=== PATIENT | male | born 1930 | race Caucasian/White ===

== ENCOUNTER 2016-09-12 11:31 | Inpatient (IN) | payer MEDICARE, BC ==
[2016-09-12] MEDS ORDERED: Sodium Chloride 0.9% 5 ML Syringe FLUSH PRN (12:28)
[2016-09-12] MEDS ORDERED: Acetaminophen 500 MG Tab PO ONE (12:28)
[2016-09-12] MEDS ORDERED: Sodium Chloride 0.9% 1,000 ML IV SCH (12:30)
--- NOTE | 2016-09-12 12:40 | EDM.PDOC ---
ED HPI GENERAL MEDICAL PROBLEM - General Chief Complaint: Respiratory Problem Stated Complaint: FEVERS,CHILLS Time Seen by Provider: 09/12/16 12:00 Source of Information: Reports: Patient, EMS, custodial records History Limitations: Reports: No limitations - History of Present Illness INITIAL COMMENTS - FREE TEXT/NARRATIVE: 86 YO WM presents to ER with fever, cough, shortness of breath. Pt reports fever /chills began this am. states patients temp was as high as 103.0. Pt denies any chest pain, denies nausea/vomiting or body aches. Onset: today Onset Date: 09/12/16 Duration: Day(s): (1) Location: Reports: generalized Improves with: Reports: Rest Worsens with: Reports: Breathing - Related Data Allergies Allergy/AdvReac Type Severity Reaction Status Date / Time atenolol Allergy Syncope Verified 09/12/16 13:09 Home Meds: Home Meds Calcium Carbonate 600 mg PO DAILY 10/28/13 [History] Ipratropium/Albuterol Sulfate [Duoneb 0.5 mg-3 mg/3 ml Soln] 3 ml IH DAILY 10/28 [History] LORazepam [Ativan] 1 mg PO BEDTIME 10/28/13 [History] Losartan [Cozaar] 100 mg PO DAILY 10/28/13 [History] Tamsulosin [Flomax] 0.4 mg PO BEDTIME 10/28/13 [History] amLODIPine [Norvasc] 5 mg PO DAILY 10/28/13 [History] lamoTRIgine [Lamictal] 100 mg PO BID 10/28/13 [History] Omeprazole [Prilosec] 40 mg PO ACBREAKFAST 05/08/15 [History] Ascorbic Acid [C-1000] 1,000 mg PO DAILY 07/25/15 [History] Budesonide [Pulmicort] 1 unit INH DAILY 07/25/15 [History] Cholecalciferol (Vitamin D3) [Vitamin D3] 1 tab PO DAILY 07/25/15 [History] Garlic 1 tab PO DAILY 07/25/15 [History] Ubiquinol 100 mg PO DAILY 07/25/15 [History] atorvaSTATin [Lipitor] 20 mg PO BEDTIME #30 tablet 07/29/15 [Rx] Past Medical History HEENT History: Reports: Cataract, Hard of hearing, Impaired vision Cardiovascular History: Reports: High cholesterol, Hypertension Respiratory History: Reports: Asthma, COPD, Pneumonia, recurrent Gastrointestinal History: Reports: Chronic constipation, GERD Genitourinary History: Reports: BPH Musculoskeletal History: Reports: Back pain, chronic Neurological History: Reports: CVA Endocrine/Metabolic History: Reports: None Oncologic (Cancer) History: Reports: Bladder - Infectious Disease History Infectious Disease History: Reports: Chicken pox, Measles, Mumps, Rubella, Other (see below) Other Infectious Disease History: Polio at age 5. 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 Endocrine Surgical History: Reports: None Social & Family History - Family History Family Medical History: Noncontributory - Tobacco Use Smoking Status *Q: Former Smoker Years of Tobacco use: 20 Packs/Tins Daily: 5 Used Tobacco, but Quit: Yes Month Tobacco Last Used: 10 years - Alcohol Use Days Per Week of Alcohol Use: 0 - Recreational Drug Use Recreational Drug Use: No ED ROS GENERAL - Review of Systems Review Of Systems: See Below Constitutional: Reports: fever, chills, weakness, decreased appetite HEENT: Reports: No symptoms Respiratory: Reports: Shortness of Breath, Cough Cardiovascular: Reports: No symptoms Endocrine: Reports: no symptoms GI/Abdominal: Reports: No symptoms : Reports: no symptoms Musculoskeletal: Reports: no symptoms Skin: Reports: no symptoms Neurological: Reports: No Symptoms Psychiatric: Reports: No symptoms Hematologic/Lymphatic: Reports: no symptoms Immunologic: Reports: no symptoms ED EXAM, GENERAL - Physical Exam Exam: See Below Exam Limited By: No limitations General Appearance: alert, WD/WN, no apparent distress Ears: normal external exam, normal canal, hearing grossly normal, normal TMs Ear Exam: bilateral ear: auricle normal, canal normal, TM normal Nose: normal inspection, normal mucosa, no blood Throat/Mouth: Normal inspection, Normal lips, Normal teeth, Normal gums, Normal oropharynx, Normal voice, No airway compromise Head: atraumatic, normocephalic Neck: normal inspection, supple, non-tender, full range of motion Respiratory/Chest: decreased breath sounds Cardiovascular: normal peripheral pulses, regular rate, rhythm, no edema, no gallop, no JVD, no murmur, no rub GI/Abdominal: normal bowel sounds, soft, non tender, no organomegaly, no distention, no abnormal bruit, no mass Back Exam: normal inspection, full range of motion, NT Extremities: normal inspection, normal range of motion, non-tender, normal capillary refill, no pedal edema Neurological: alert, oriented, CN II-XII intact, normal cognition, normal gait, normal reflexes, no motor/sensory deficits Psychiatric: normal affect, normal mood Skin Exam: Warm, Dry, Intact, Normal color, No rash Lymphatic: no adenopathy Course - Vital Signs Last Recorded V/S: Last Vital Signs Temp 39.4 C H 09/12/16 13:22 Pulse 86 09/12/16 11:35 Resp 28 H 09/12/16 11:35 BP 140/74 09/12/16 11:35 Pulse Ox 88 L 09/12/16 11:35 - Orders/Labs/Meds Orders: Active Orders 24 hr Category Date Time Status Patient Status Manage Transfer [TRANSFER] Routine ADT 09/12/16 13:10 Ordered Cardiac Monitoring [RC] . DIRECTED Care 09/12/16 13:10 Active Peripheral IV Care [RC] . DIRECTED Care 09/12/16 12:29 Active RT Aerosol Therapy [RC] ASDIRECTED Care 09/12/16 12:59 Active Chest 2V [CR] Stat Exams 09/12/16 11:45 Ordered CULTURE BLOOD [BC] Stat Lab 09/12/16 12:47 Received CULTURE BLOOD [BC] Stat Lab 09/12/16 13:18 Received UA W/MICROSCOPIC [URIN] Stat Lab 09/12/16 11:46 Uncollected Sodium Chloride 0.9% [Normal Saline] 1,000 ml Med 09/12/16 12:30 Active IV ASDIRECTED Sodium Chloride 0.9% [Syrex Flush] Med 09/12/16 12:28 Active 5 ml FLUSH Q8HR PRN Blood Culture x2 Reflex Set [OM.PC] Stat Oth 09/12/16 12:28 Ordered Peripheral IV Insertion Adult [OM.PC] Routine Oth 09/12/16 12:28 Ordered Medication Orders Sodium Chloride (Normal Saline) 1,000 mls @ 150 mls/hr IV ASDIRECTED BERNABE Sodium Chloride (Syrex Flush) 5 ml FLUSH Q8HR PRN PRN Reason: Keep Vein Open Labs: Laboratory Tests 09/12/16 09/12/16 09/12/16 Range/Units 12:47 12:47 12:47 WBC 13.9 H (5.0-10.0) 10^3/uL RBC 4.72 (4.50-6.00) 10^6/uL Hgb 15.2 (13.0-17.0) g/dL Hct 45.1 (40.0-52.0) % MCV 95.5 H (82.0-92.0) fL MCH 32.2 H (27.0-31.0) pg MCHC 33.7 (32.0-36.0) g/dL RDW 12.8 (11.5-14.5) % Plt Count 225 (150-300) 10^3/uL MPV 7.3 L (7.4-10.4) fL Neut % (Auto) 90.3 H (50.0-70.0) % Lymph % (Auto) 5.0 L (20.0-40.0) % [place] % (Auto) 4.4 (2.0-8.0) % Eos % (Auto) 0.2 L (1.0-3.0) % Baso % (Auto) 0.1 (0.0-1.0) % Neut # (Auto) 12.6 H (2.5-7.0) 10^3/uL Lymph # (Auto) 0.7 L (1.0-4.0) 10^3/uL [place] # (Auto) 0.6 (0.1-0.8) 10^3/uL Eos # (Auto) 0.0 L (0.1-0.3) 10^3/uL Baso # (Auto) 0.0 (0.0-0.1) 10^3/uL PT 10.2 (8.9-11.4) SEC INR 1.0 (0.9-1.1) APTT 25.7 (20.8-31.2) SEC Sodium 137 (136-145) mmol/L Potassium 4.0 (3.3-5.3) mmol/L Chloride 99 (98-115) mmol/L Carbon Dioxide 28.6 (21.0-32.0) mmol/L BUN 15 (6-25) mg/dL Creatinine 0.95 (0.51-1.17) mg/dL Est Cr Clr Drug Dosing 55.18 mL/min Estimated GFR (MDRD) > 60 mL/min Glucose 90 (70-110) mg/dL Calcium 9.1 (8.7-10.3) mg/dL Total Bilirubin 1.0 (0.2-1.0) mg/dL AST 14 L (15-37) U/L ALT 13 (12-78) U/L Alkaline Phosphatase 77 (46-116) IU/L Creatine Kinase 60 (26-276) U/L CK-MB (CK-2) 0.90 (0.00-4.30) ng/mL Troponin I 0.06 (0.00-0.070) ng/mL B-Natriuretic Peptide 125 H (0-100) pg/mL Total Protein 7.5 (6.4-8.2) g/dL Albumin 4.00 (3.00-4.80) g/dL Meds: Medications Generic Name Dose Route Start Last Admin Trade Name Freq PRN Reason Stop Dose Admin Sodium Chloride 1,000 mls @ 150 mls/hr 09/12/16 12:30 Normal Saline IV ASDIRECTED BERNABE Sodium Chloride 5 ml 09/12/16 12:28 Syrex Flush FLUSH Q8HR PRN Keep Vein Open Discontinued Medications Generic Name Dose Route Start Last Admin Trade Name Freq PRN Reason Stop Dose Admin Acetaminophen 1,000 mg 09/12/16 12:28 09/12/16 13:22 Tylenol Extra Strength PO 09/12/16 12:29 1,000 mg ONETIME ONE Administration Albuterol/Ipratropium 3 ml 09/12/16 12:59 09/12/16 13:22 Duoneb 3.0-0.5 Mg/3 Ml NEB 09/12/16 13:00 3 ml ONETIME ONE Administration - Radiology Interpretation Free Text/Narrative:: CXR- Bibasilar pneumonia Departure - Departure Time of Disposition: 13:28 Disposition: Admitted As Inpatient 68 Condition: fair Clinical Impression: Pneumonia Qualifiers: Pneumonia type: due to unspecified organism Laterality: bilateral Lung location : lower lobe of lung Qualified Code(s): J18.9 - Pneumonia, unspecified organism Referrals: Latoya Muñiz, [employer] [Primary Care Provider] - - My Orders Last 24 Hours: My Active Orders 09/12/16 11:45 Chest 2V [CR] Stat 09/12/16 11:46 UA W/MICROSCOPIC [URIN] Stat 09/12/16 12:28 Sodium Chloride 0.9% [Syrex Flush] 5 ml FLUSH Q8HR PRN Blood Culture x2 Reflex Set [OM.PC] Stat Peripheral IV Insertion Adult [OM.PC] Routine 09/12/16 12:29 Peripheral IV Care [RC] . DIRECTED 09/12/16 12:30 Sodium Chloride 0.9% [Normal Saline] 1,000 ml IV ASDIRECTED 09/12/16 12:47 CULTURE BLOOD [BC] Stat 09/12/16 12:59 RT Aerosol Therapy [RC] ASDIRECTED 09/12/16 13:10 Patient Status Manage Transfer [TRANSFER] Routine Cardiac Monitoring [RC] . DIRECTED 09/12/16 13:18 CULTURE BLOOD [BC] Stat - Assessment/Plan Last 24 Hours: My Active Orders 09/12/16 11:45 Chest 2V [CR] Stat 09/12/16 11:46 UA W/MICROSCOPIC [URIN] Stat 09/12/16 12:28 Sodium Chloride 0.9% [Syrex Flush] 5 ml FLUSH Q8HR PRN Blood Culture x2 Reflex Set [OM.PC] Stat Peripheral IV Insertion Adult [OM.PC] Routine 09/12/16 12:29 Peripheral IV Care [RC] . DIRECTED 09/12/16 12:30 Sodium Chloride 0.9% [Normal Saline] 1,000 ml IV ASDIRECTED 09/12/16 12:47 CULTURE BLOOD [BC] Stat 09/12/16 12:59 RT Aerosol Therapy [RC] ASDIRECTED 09/12/16 13:10 Patient Status Manage Transfer [TRANSFER] Routine Cardiac Monitoring [RC] . DIRECTED 09/12/16 13:18 CULTURE BLOOD [BC] Stat Assessment:: 1. fever 2. bibasillar pneumonia- community acquired Plan: 1. admit to hospital for pneumonia 2. duoneb treatment 3. antibiotics per Dr Gabriela Olivares 4. tylenol for fever
[2016-09-12] MEDS ORDERED: Albuterol/Ipratropium 3.0-0.5 MG/3 ML Neb Soln NEB ONE (12:59)
[2016-09-12 13:27] LABS: CHLORIDE,CL 99 mmol/L (98-115); SODIUM,NA 137 mmol/L (136-145)
--- NOTE | 2016-09-12 14:14 | PCM.HP ---
H&P History of Present Illness - General Date of Service: 09/12/16 Admit Problem/Dx: Admission Diagnosis/Problem Admission Diagnosis/Problem Pneumonia History of present illness: Patient is an 86-year-old gentleman who normally lives in assisted living who presented to the emergency room today with the chief complaint of fever, increased shortness breath, increased coughing. Patient reports he was feeling well up until this morning-developed fever, 103+ , chills, increased coughing, shaking, increased fatigue, decreased appetite, increased shortness of breath, increased wheezing History of significant COPD, previous pneumonia Denied any abdominal pain, nausea, vomiting, diarrhea-history of some constipation. Patient is on chronic nocturnal oxygen therapy History of previous bladder [id number]-on surveillance every 3 months Patient evaluated in the emergency room: Thought to have bibasilar pneumonia Source of Information: Patient, Family, Significant Other, Other History Limitations: Reports: No limitations - History of Present Illness Initial Comments - Free Text/Narative: As above Onset of Symptoms: Reports: today - Related Data Allergies/Adverse Reactions: Allergies Allergy/AdvReac Type Severity Reaction Status Date / Time atenolol Allergy Syncope Verified 09/12/16 13:09 Home Medications: Home Meds Calcium Carbonate 600 mg PO DAILY 10/28/13 [History] Ipratropium/Albuterol Sulfate [Duoneb 0.5 mg-3 mg/3 ml Soln] 3 ml IH DAILY 10/28 [History] LORazepam [Ativan] 1 mg PO BEDTIME 10/28/13 [History] Losartan [Cozaar] 100 mg PO DAILY 10/28/13 [History] Tamsulosin [Flomax] 0.4 mg PO BEDTIME 10/28/13 [History] amLODIPine [Norvasc] 5 mg PO DAILY 10/28/13 [History] lamoTRIgine [Lamictal] 100 mg PO BID 10/28/13 [History] Omeprazole [Prilosec] 40 mg PO ACBREAKFAST 05/08/15 [History] Ascorbic Acid [C-1000] 1,000 mg PO DAILY 07/25/15 [History] Budesonide [Pulmicort] 1 unit INH DAILY 07/25/15 [History] Cholecalciferol (Vitamin D3) [Vitamin D3] 1 tab PO DAILY 07/25/15 [History] Garlic 1 tab PO DAILY 07/25/15 [History] Ubiquinol 100 mg PO DAILY 07/25/15 [History] atorvaSTATin [Lipitor] 20 mg PO BEDTIME #30 tablet 07/29/15 [Rx] Past Medical History HEENT History: Reports: Cataract, Hard of hearing, Impaired vision Cardiovascular History: Reports: High cholesterol, Hypertension Respiratory History: Reports: Asthma, COPD, Pneumonia, recurrent Gastrointestinal History: Reports: Chronic constipation, GERD Genitourinary History: Reports: BPH Musculoskeletal History: Reports: Back pain, chronic Neurological History: Reports: CVA Endocrine/Metabolic History: Reports: None Oncologic (Cancer) History: Reports: Bladder - Infectious Disease History Infectious Disease History: Reports: Chicken pox, Measles, Mumps, Rubella, Other (see below) Other Infectious Disease History: Polio at age 5. 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 Endocrine Surgical History: Reports: None Social & Family History - Family History Family Medical History: Noncontributory - Tobacco Use Smoking Status *Q: Former Smoker Years of Tobacco use: 20 Packs/Tins Daily: 5 Used Tobacco, but Quit: Yes Month Tobacco Last Used: 10 years - Alcohol Use Days Per Week of Alcohol Use: 0 - Recreational Drug Use Recreational Drug Use: No H&P Review of Systems - Review of Systems: Review Of Systems: See Below General: Reports: fever, chills, malaise, weakness, fatigue, decreased appetite. Denies: diaphoresis, weight loss, weight gain HEENT: Reports: glasses. Denies: dysphasia, headaches, sinus congestion, sore throat Pulmonary: Reports: Shortness of Breath, Wheezing, Cough (somewhat increased). Denies: Pleuritic Chest Pain Cardiovascular: Reports: dyspnea on exertion, lightheadedness (chronically when he gets up to fast). Denies: chest pain, palpitations, edema, syncope Gastrointestinal: Reports: Anorexia (eats very small meals), Constipation (at times), Decreased appetite. Denies: Abdominal pain, Black stool, Bloody stool, Diarrhea, Distension, Hematochezia, Melena, Nausea, Vomiting Genitourinary: Reports: dysuria (at times). Denies: frequency, urgency, incontinence, hematuria Musculoskeletal: Reports: leg pain (arthritis) Skin: Denies: cyanosis, jaundice, mottled, pallor, diaphoresis, rash, erythema Psychiatric: Reports: no symptoms Neurological: Reports: No Symptoms (except increase weakness), Weakness ( increased) Hematologic/Lymphatic: Reports: no symptoms Exam - Exam Exam: See Below - Vital Signs Vital Signs: Last Vital Signs Temp 102.9 F H 09/12/16 13:22 Pulse 86 09/12/16 11:35 Resp 28 H 09/12/16 11:35 BP 140/74 09/12/16 11:35 Pulse Ox 88 L 09/12/16 11:35 Weight: 148 lb 9.6 oz - Exam Quality Assessment: supplemental oxygen General: alert, oriented, cooperative, mild distress, other (appears ill somewhat septic/toxic) HEENT: Conjunctiva clear, EACs clear, EOMI, Mucosa moist & pink, Nares patent, Normal nasal septum, Pupils equal, Pupils reactive, TMs clear, Glasses, PERRLA. No: Hearing intact (hard of hearing), Posterior pharynx clear (slight induration), Scleral icterus Neck: supple, trachea midline. No: lymphadenopathy, JVD, thyromegaly Lungs: Decreased breath sounds, Crackles, Wheezing (slight at times) Cardiovascular: regular rate, regular rhythm, systolic murmur Abdomen: normal bowel sounds, soft. No: organomegaly, peritoneal signs, distention, guarding, rigidity, rebound, tenderness Extremities: No: calf tenderness, edema, increased warmth Skin: dry, intact, other (hot) Neurological: cranial nerves intact (except hard of hearing) Neuro Extensive - Mental Status: alert, oriented x3, normal mood/affect, normal cognition Neuro Extensive - Motor, Sensory, Reflexes: CN II-XII intact (except [place]), normal gait Psychiatric: alert, normal affect, normal mood - Patient Data Result Diagrams: 09/12/16 12:47 09/12/16 12:47 *Q Meaningful Use (ADM) - VTE *Q VTE Criteria *Q: - Stroke *Q Stroke Criteria *Q: - AMI *Q AMI Criteria *Q: Problem List Initiated/Reviewed/Updated: Yes Orders Last 24hrs: Active Orders 24 hr Category Date Time Status Doxycycline [Vibramycin] Med 09/12/16 14:00 Active 100 mg PO BID cefTRIAXone [Rocephin] Med 09/12/16 14:00 Active 1 gm IVPUSH Q24H Medication Orders Ceftriaxone Sodium (Rocephin) 1 gm IVPUSH Q24H BERNABE Doxycycline Monohydrate (Vibramycin) 100 mg PO BID BERNABE Sodium Chloride (Normal Saline) 1,000 mls @ 150 mls/hr IV ASDIRECTED BERNABE Sodium Chloride (Syrex Flush) 5 ml FLUSH Q8HR PRN PRN Reason: Keep Vein Open Assessment/Plan Comment:: Assessment: Pneumonia Acute on chronic COPD exacerbation Rule out sepsis Generalized weakness Hypoxia-acute on chronic/respiratory failure Hypertension Hyperlipidemia Osteoarthritis-diffuse Bladder cancer history GERD History of recurrent pneumonia Chronic constipation Prostatic hypertrophy Previous CVA history Plan: Admit to inpatient status Close monitoring, I&O, vital signs Full cultures-blood, sputum Cover with broad-spectrum antibiotics-IV Rocephin and oral doxycycline Continue duo nebs every 6 hours Oxygen therapy and titrate as necessary to maintain adequate oxygenation but not suppress respiratory drive Talked with patient and his and they agree with this evaluation and treatment plan Consider corticosteroids depending on clinical picture-does not appear to need and at this time See orders for further details
[2016-09-12] MEDS: cefTRIAXone 1 GM Vial IVPUSH SCH (14:20)
[2016-09-12] MEDS: Doxycycline 100 MG Tab PO SCH ×2 (15:38→20:38)
[2016-09-12] MEDS: Albuterol/Ipratropium 3.0-0.5 MG/3 ML Neb Soln NEB SCH ×2 (17:43→22:04)
[2016-09-12] MEDS: Budesonide 0.5 MG/2 ML Neb Susp INH SCH (17:58)
[2016-09-12] MEDS: atorvaSTATin 10 MG Tab PO SCH (20:35)
[2016-09-12] MEDS: LORazepam 0.5 MG Tab PO SCH (20:35)
[2016-09-12] MEDS: Tamsulosin 0.4 MG Cap.ER PO SCH (20:36)
[2016-09-12] MEDS: lamoTRIgine 100 MG Tab PO SCH (22:03)
[2016-09-13] MEDS: Omeprazole 20 MG Cap.CR PO SCH (06:06)
[2016-09-13] MEDS: Albuterol/Ipratropium 3.0-0.5 MG/3 ML Neb Soln NEB SCH ×4 (06:07→22:07)
[2016-09-13] MEDS: Losartan 50 MG Tab PO SCH (08:24)
[2016-09-13] MEDS: lamoTRIgine 100 MG Tab PO SCH ×2 (08:25→20:45)
[2016-09-13] MEDS: Ascorbic Acid 500 MG Tab PO SCH (08:26)
[2016-09-13] MEDS: amLODIPine 5 MG Tab PO SCH (08:26)
[2016-09-13] MEDS: Doxycycline 100 MG Tab PO SCH ×2 (08:27→20:47)
[2016-09-13] MEDS: Budesonide 0.5 MG/2 ML Neb Susp INH SCH (08:33)
[2016-09-13] MEDS: UBIQUINOL 100 MG PO SCH (08:37)
--- NOTE | 2016-09-13 09:43 | PCM.PN ---
- General Info Date of Service: 09/13/16 Admission Dx/Problem (Free Text): Admission Diagnosis/Problem Admission Diagnosis/Problem Pneumonia History of present illness: Patient is an 86-year-old gentleman who normally lives in assisted living who presented to the emergency room today with the chief complaint of fever, increased shortness breath, increased coughing. Patient reports he was feeling well up until this morning-developed fever, 103+ , chills, increased coughing, shaking, increased fatigue, decreased appetite, increased shortness of breath, increased wheezing History of significant COPD, previous pneumonia Denied any abdominal pain, nausea, vomiting, diarrhea-history of some constipation. Patient is on chronic nocturnal oxygen therapy History of previous bladder bjodfijzs-pnir-lujwcujgxy-on surveillance every 3 months Patient evaluated in the emergency room: Thought to have bibasilar pneumonia Patient reports today: Feeling somewhat better today Slightly stronger but yet weaker than his baseline Shortness of breath-slightly better Denied any chest pain Slight abdominal discomfort History of constipation-but had a bowel movement yesterday Slight nausea this morning when he ate but better now Nurses report today: Patient doing well Temperature down Question to continue IV fluids or not Functional Status: Reports: pain controlled, tolerating diet (Pretty well- slight nausea with it-resolved at present), ambulating, urinating - Review of Systems General: Reports: Weakness (Slightly better), Fatigue (Slightly better), Appetite (Fair). Denies: Fever, Chills HEENT: Reports: no symptoms Pulmonary: Reports: shortness of breath (Slight improvement), cough (Less pronounced). Denies: pleuritic chest pain, wheezing (No wheezing today) Cardiovascular: Denies: Chest Pain, Palpitations, Dyspnea on Exertion, Edema, Lightheadedness Gastrointestinal: Reports: Abdominal pain (Slight diffuse discomfort), Constipation (History-bowel movement yesterday), Nausea (Slight with breakfast- resolved after eating). Denies: Diarrhea, Hematochezia, Melena, Vomiting Genitourinary: Reports: no symptoms Musculoskeletal: Reports: no symptoms Neurological: Reports: No Symptoms Psychiatric: Reports: no symptoms - Patient Data Vitals - most recent: Last Vital Signs Temp 97.8 F 09/13/16 06:15 Pulse 69 09/13/16 06:15 Resp 20 09/13/16 06:15 BP 150/66 H 09/13/16 08:26 Pulse Ox 94 L 09/13/16 06:15 Weight - most recent: 148 lb 4 oz I&O - last 24 hours: Intake & Output 09/12/16 09/13/16 09/13/16 22:59 06:59 14:59 Intake Total 1370 100 Output Total 1100 Balance 1370 -1000 Lab Results last 24 hrs: Laboratory Results - last 24 hr 09/12/16 Range/Units 16:45 Specimen Type Urinvoid Urine Color Nevaeh H (YELLOW) Urine Appearance Clear (CLEAR) Urine pH 5.0 (5.0-9.0) Ur Specific [place] 1.020 (1.005-1.030) Urine Protein Trace H (NEGATIVE) mg/dL Urine Glucose (UA) Negative (NEGATIVE) mg/dL Urine Ketones 15 H (NEGATIVE) mg/dL Urine Occult Blood Negative (NEGATIVE) Urine Nitrite Negative (NEGATIVE) Urine Bilirubin Small H (NEGATIVE) Urine Urobilinogen 0.2 (0.2-1.0) E.U./dL Ur Leukocyte Esterase Negative (NEGATIVE) Urine RBC Not seen /HPF Urine WBC 0-5 /HPF Ur Epithelial Cells Many H /LPF Urine Bacteria Not seen (NONE TO FEW) /HPF Urine Mucus Many H (NEGATIVE) /LPF Med Orders - Current: Current Medications Albuterol/Ipratropium (Duoneb 3.0-0.5 Mg/3 Ml) 3 ml NEB Q6HRRT [facility] Last Admin: 09/13/16 06:07 Dose: 3 ml Amlodipine Besylate (Norvasc) 5 mg PO DAILY [facility] Last Admin: 09/13/16 08:26 Dose: 5 mg Ascorbic Acid (Vitamin C) 1,000 mg PO DAILY [facility] Last Admin: 09/13/16 08:26 Dose: 1,000 mg Atorvastatin Calcium (Lipitor) 20 mg PO BEDTIME [facility] Last Admin: 09/12/16 20:35 Dose: 20 mg Budesonide (Pulmicort) 0.5 mg INH DAILYRT [facility] Last Admin: 09/13/16 08:33 Dose: 0.5 mg Ceftriaxone Sodium (Rocephin) 1 gm IVPUSH Q24H [facility] Last Admin: 09/12/16 14:20 Dose: 1 gm Doxycycline Monohydrate (Vibramycin) 100 mg PO BID [facility] Last Admin: 09/13/16 08:27 Dose: 100 mg Lamotrigine (Lamotrigine) 100 mg PO BID [facility] Last Admin: 09/13/16 08:25 Dose: 100 mg Lorazepam (Ativan) 1 mg PO BEDTIME [facility] Last Admin: 09/12/16 20:35 Dose: 1 mg Losartan Potassium (Cozaar) 100 mg PO DAILY [facility] Last Admin: 09/13/16 08:24 Dose: 100 mg Ubiquinol 100 Mg (Nf) 100 mg PO DAILY [facility] Last Admin: 09/13/16 08:37 Dose: Not Given Omeprazole (Omeprazole) 40 mg PO ACBREAKFAST [facility] Last Admin: 09/13/16 06:06 Dose: 40 mg Tamsulosin HCl (Flomax) 0.4 mg PO BEDTIME [facility] Last Admin: 09/12/16 20:36 Dose: 0.4 mg Discontinued Medications Acetaminophen (Tylenol Extra Strength) 1,000 mg PO ONETIME ONE Stop: 09/12/16 12:29 Last Admin: 09/12/16 13:22 Dose: 1,000 mg Albuterol/Ipratropium (Duoneb 3.0-0.5 Mg/3 Ml) 3 ml NEB ONETIME ONE Stop: 09/12/16 13:00 Last Admin: 09/12/16 13:22 Dose: 3 ml Sodium Chloride (Normal Saline) 1,000 mls @ 150 mls/hr IV ASDIRECTED [facility] Last Admin: 09/12/16 14:21 Dose: 150 mls/hr Sodium Chloride (Syrex Flush) 5 ml FLUSH Q8HR PRN PRN Reason: Keep Vein Open - Exam Quality Assessment: supplemental oxygen General: alert, oriented, cooperative, no acute distress, other (Patient lying in bed with head of bed increased, no respiratory distress, looks better in less toxic/septic than yesterday, respirations easy, minimal coughing) HEENT: Pupils equal, Pupils reactive, EOMI, Mucous membr. moist/pink. No: Scleral icterus Neck: supple, trachea midline, no JVD, no thyromegaly. No: lymphadenopathy, thyromegaly Lungs: Decreased breath sounds, Crackles (In bases). No: Wheezing (No wheezing today) Cardiovascular: Regular Rate, Regular Rhythm, Murmurs (Questionable slight 1/6 systolic) Abdomen: bowel sounds present, soft, no tenderness, no distension. No: rigidity , rebound, guarding, tenderness, distension, organomegaly Extremities: no edema, no tenderness/swelling, no calf tenderness Skin: warm, dry, intact Neurological: no new focal deficit Psy/Mental Status: alert, normal affect, normal mood - Problem List Review Problem List Initiated/Reviewed/Updated: Yes - My Orders Last 24 Hours: My Active Orders 09/12/16 14:00 Doxycycline [Vibramycin] 100 mg PO BID cefTRIAXone [Rocephin] 1 gm IVPUSH Q24H 09/12/16 15:29 Budesonide [Pulmicort] 0.5 mg INH DAILYRT 09/12/16 15:32 Patient Status [ADT] Routine Height and Weight [RC] DAILY Oxygen Therapy [RC] DAILY Up to Chair [RC] DAILY VTE/DVT Education [RC] PER UNIT ROUTINE Vital Signs [RC] 0300,0700,1100,1500,1900,2300 Resuscitation Status Routine 09/12/16 15:36 Intake and Output [RC] 1400,2200,0600 09/12/16 15:37 Pulse Oximetry [RC] Antiembolic Hose [OM.PC] Per Unit Routine 09/12/16 15:38 Antiembolic Devices [RC] 0900,2100 09/12/16 17:00 Albuterol/Ipratropium [DuoNeb 3.0-0.5 MG/3 ML] 3 ml NEB Q6HRRT 09/12/16 21:00 LORazepam [Ativan] 1 mg PO BEDTIME Tamsulosin [Flomax] 0.4 mg PO BEDTIME atorvaSTATin [Lipitor] 20 mg PO BEDTIME lamoTRIgine 100 mg PO BID 09/12/16 Dinner Regular Diet [DIET] 09/13/16 07:00 Omeprazole 40 mg PO ACBREAKFAST 09/13/16 09:00 Ascorbic Acid [Vitamin C] 1,000 mg PO DAILY Losartan [Cozaar] 100 mg PO DAILY Ubiquinol [Ubiquinol] 100 mg PO DAILY amLODIPine [Norvasc] 5 mg PO DAILY - Assessment Assessment:: Assessment: Fibakkqjc-kucsvhp-pgygbykkmr improving Acute on chronic COPD exacerbation-improving Rule out sepsis-clinically doing well Generalized weakness-slightly better Hypoxia-acute on chronic/respiratory failure-good control with oxygen therapy Leukocytosis secondary to above Hypertension-still running a little elevated Hyperlipidemia Osteoarthritis-diffuse Bladder cancer history GERD History of recurrent pneumonia Chronic constipation-controlled at present Prostatic hypertrophy Previous CVA history - Plan Plan:: Plan: Reviewed present treatment regimen-continue same regimen except changes as below Close monitoring, I&O, vital signs Full cultures-blood, sputum await full results Continue to cover with broad-spectrum antibiotics-IV Rocephin and oral doxycycline Continue duo nebs every 6 hours Oxygen therapy and titrate as necessary to maintain adequate oxygenation but not suppress respiratory drive Talked with patient and his and they agree with this evaluation and treatment plan Patient does not appear to need corticosteroids at this time CBC, CMP in a.m. Saline lock Discontinue IV fluids
[2016-09-13] MEDS ORDERED: Sodium Chloride 0.9% 5 ML Syringe FLUSH PRN (09:52)
[2016-09-13] MEDS: cefTRIAXone 1 GM Vial IVPUSH SCH (13:30)
[2016-09-13] MEDS ORDERED: Acetaminophen 325 MG Tab PO PRN (17:40)
[2016-09-13] MEDS: Tamsulosin 0.4 MG Cap.ER PO SCH (20:45)
[2016-09-13] MEDS: atorvaSTATin 10 MG Tab PO SCH (20:45)
[2016-09-13] MEDS: LORazepam 0.5 MG Tab PO SCH (20:45)
[2016-09-13] MEDS ORDERED: Magnesium Hydroxide 400 MG/5 ML Susp 30 ML Cup PO PRN (20:49)
[2016-09-14] MEDS: Albuterol/Ipratropium 3.0-0.5 MG/3 ML Neb Soln NEB SCH ×4 (05:55→22:17)
[2016-09-14] MEDS: Omeprazole 20 MG Cap.CR PO SCH (06:18)
[2016-09-14 07:14] LABS: CHLORIDE,CL 102 mmol/L (98-115); SODIUM,NA 137 mmol/L (136-145)
[2016-09-14] MEDS: Budesonide 0.5 MG/2 ML Neb Susp INH SCH (09:21)
[2016-09-14] MEDS: Ascorbic Acid 500 MG Tab PO SCH (09:31)
[2016-09-14] MEDS: lamoTRIgine 100 MG Tab PO SCH ×2 (09:31→20:39)
[2016-09-14] MEDS: UBIQUINOL 100 MG PO SCH (09:32)
[2016-09-14] MEDS: Losartan 50 MG Tab PO SCH (09:32)
[2016-09-14] MEDS: amLODIPine 5 MG Tab PO SCH (09:32)
[2016-09-14] MEDS: Doxycycline 100 MG Tab PO SCH (09:34)
[2016-09-14] MEDS ORDERED: Levofloxacin 500 MG Tab PO SCH (10:30)
[2016-09-14] MEDS ORDERED: Pneumococcal Polyvalent-23 Vaccine 0.5 ML SDV IM ONE (12:04)
[2016-09-14] MEDS: Levofloxacin 500 MG Tab PO SCH (13:00)
--- NOTE | 2016-09-14 13:17 | PN ---
09/14/2016 PATIENT NAME: ROYAL Stacey REYNAGA CHIEF COMPLAINT: Overall feels better. Was ambulatory in the halls. Remains on telemetry. He has no sputum. He says he feels good. No nausea. No vomiting. No shortness of breath. No mucus production. HISTORY: This 86-year-old gentleman was admitted for pneumonia. He said he had chills at home. Apparently he has gotten pneumonia about five times past two years, so he knows when this is coming on, so he was admitted through the emergency department. He said he had a fever of 103 with some chills. He does have a history of COPD, so he was admitted, placed on antibiotics. The patient did have a white count of about 14,000 on admission; today it is 9.1. Neutrophils are down to 70. Sodium, potassium, and all electrolytes are good. Albumin 3.09. UA on admission showed no bacteria, some mucus, small amount of bilirubin, 15 of ketones, trace of protein. Microbiology report, no growth of the blood cultures after one day. We have no sputum culture right now. PHYSICAL EXAMINATION: VITAL SIGNS: Blood pressure 121/69, heart rate 50s to 60s. The patient is afebrile. LUNGS: Clear to auscultation. CONSTITUTIONAL: The patient is alert and oriented. CV: Regular rate and rhythm. GI: Good bowel tones. Reviewed the chest x-ray, does look like early bibasilar infiltrate. IMPRESSION AND PLAN: Pneumonia, community acquired. Discontinue doxycycline. He is on Rocephin. We will add Levaquin as he will go home most likely tomorrow on oral Levaquin. Continue with DuoNebs, oxygen as needed. The patient is doing real good. No growth on blood cultures. He is well hydrated. He is euvolemic. We can remove telemetry. Other chronic conditions: 1. Acute on chronic COPD exacerbation. 2. Generalized weakness. 3. Hypertension. 4. Hyperlipidemia. 5. Osteoarthritis which is diffuse. 6. History of bladder cancer. 7. GERD. 8. Recurrent pneumonia. May need pneumococcal 23, give that to him today. 9. Histories of CVAs. OVERALL PLAN: Remove telemetry. Administer the pneumococcal PPSV23. Monitor for any sputum production or any shortness of breath. Discontinue doxycycline. Add Levaquin 750. He can continue getting Rocephin; however, these are likely dual agents. Overall the patient is doing well. Anticipate discharge home tomorrow with ongoing p.o. antibiotics. /[id number]/MODL
[2016-09-14] MEDS: cefTRIAXone 1 GM Vial IVPUSH SCH (15:16)
[2016-09-14] MEDS: Tamsulosin 0.4 MG Cap.ER PO SCH (20:38)
[2016-09-14] MEDS: LORazepam 0.5 MG Tab PO SCH (20:38)
[2016-09-14] MEDS: atorvaSTATin 10 MG Tab PO SCH (20:39)
[2016-09-15] MEDS: Albuterol/Ipratropium 3.0-0.5 MG/3 ML Neb Soln NEB SCH ×2 (05:50→11:11)
[2016-09-15] MEDS: Omeprazole 20 MG Cap.CR PO SCH (06:48)
[2016-09-15] MEDS: Losartan 50 MG Tab PO SCH (08:21)
[2016-09-15] MEDS: amLODIPine 5 MG Tab PO SCH (08:21)
[2016-09-15 08:22] VITALS: BP 141/67
[2016-09-15] MEDS: Ascorbic Acid 500 MG Tab PO SCH (08:22)
[2016-09-15] MEDS: UBIQUINOL 100 MG PO SCH (08:22)
[2016-09-15] MEDS: lamoTRIgine 100 MG Tab PO SCH (08:22)
[2016-09-15] MEDS: Budesonide 0.5 MG/2 ML Neb Susp INH SCH (08:37)
[2016-09-15] MEDS: Levofloxacin 500 MG Tab PO SCH (11:00)
--- NOTE | 2016-09-16 13:00 | DISCH ---
Mr. Olson was admitted inpatient on 09/12/2016, discharged from inpatient today 09/15/2016. FINAL DIAGNOSIS: Pneumonia, community acquired, likely typical, clinically improved. OTHER CHRONIC CONDITIONS: Include: 1. Acute on chronic obstructive pulmonary disease exacerbation. 2. Generalized weakness. 3. Hypertension. 4. Hyperlipidemia. 5. Osteoarthritis, which is diffuse. 6. History of bladder cancer. 7. Gastroesophageal reflux disease. 8. Histories of pneumonia. 9. Histories of cerebrovascular accident. BRIEF HISTORY: This 86-year-old gentleman was admitted for pneumonia. He said he had chills at home. Apparently, he has gotten pneumonia about 5 times in the past 2 years. He knows when this is coming on, so he was admitted through the emergency department. He says he mainly gets chills, had a fever of 103, just did not feel right. He said he felt the same way of other recurrent past pneumonias. Does have a history of COPD. HOSPITAL COURSE: The patient's hospital course went well. He had no side effects or allergic reactions. Initially through the ED and through the weekend, he was placed on doxycycline along with Rocephin. I did change that to levofloxacin and discontinued doxycycline. He never had any hemodynamic instability. He had a low CURB score. His chest x-ray report did show early bibasilar pneumonia. His initial white count on admission was around 14,000 that decreased to 7.8 on discharge. Percentage neutrophils decreased to 73%. He did not have any reactive thrombocytosis. Sodium, potassium, BUN, and creatinine were all measured and were normal. He did have a negative troponin. BNP was 125. Albumin 3.08. Urinalysis did show trace of protein, little bit millicent color, however, unremarkable. His temperature max was 102.9, that was in the ED. It subsequently went down. He was given IV fluids. He is on fluid restriction, so this was limited. He was euvolemic. Blood cultures were drawn. There was no growth after 2 days. Sputum cultures, Gram stain, showed positive cocci with rare positive rods. We continued with his respiratory medications. He did receive overlapping coverage of ceftriaxone along with Levaquin until discharge. He did get administer Pneumococcal 23. MEDICATIONS ADJUSTMENTS: The patient will be discharged on Levaquin 750 mg p.o. daily x7 days. He can continue all other home medications. DISPOSITION: The patient will be discharged from the hospital and self-care with home. He is feeling well. His lungs were clear on auscultation. CV was regular rate and rhythm. He was afebrile. He was euvolemic. He was not hypoxic. He does use oxygen at home at night only. Pneumovax was given. He is to report any shortness of breath or any increase in mucus production. He will follow up with his primary care provider, JOE Hart, next week. Continue taking Levaquin. IMMUNIZATIONS: Pneumovax 23 was given 08/2016. MEDICAL DECISION MAKIN minutes were spent on this discharge planning and process. /[id number]/MODL
== END 2016-09-15 13:15 | disposition home or self-care (01) | DRG 190 ==
LOC: KA.ED 11:31 → KA.MS 13:10
PROVIDERS: ADMIT Physician Assistant Medical; ATTEND Family Medicine
DX: J44.0 Chronic obstructive pulmonary disease with (acute) lower respiratory infection (principal); J18.9 Pneumonia, unspecified organism; J44.1 Chronic obstructive pulmonary disease with (acute) exacerbation; I10 Essential (primary) hypertension; E78.5 Hyperlipidemia, unspecified; M19.90 Unspecified osteoarthritis, unspecified site; Z85.51 Personal history of malignant neoplasm of bladder; K21.9 Gastro-esophageal reflux disease without esophagitis; Z86.73 Personal history of transient ischemic attack (TIA), and cerebral infarction without residual deficits; Z99.81 Dependence on supplemental oxygen; N40.0 Benign prostatic hyperplasia without lower urinary tract symptoms; Z23 Encounter for immunization
CPT/HCPCS: 36415; 71020; 80053; 81001; 82550; 82553; 83880; 84484; 85025; 85610; 85730; 87040; 87070; 87077; 87205; 90732; 94640; 99284; 99285; A9270-GY; G0009; J0696; J7030

== ENCOUNTER 2019-04-19 13:11 | Inpatient (IN) | payer MEDICARE, OTHER ==
[2019-04-19] MEDS ORDERED: Sodium Chloride 0.9% 10 ML Syringe FLUSH PRN (14:35)
[2019-04-19 15:57] LABS: ANION GAP 15.6 mmol/L (5-15)
[2019-04-19] MEDS ORDERED: Sodium Chloride 0.9% 250 ML IV SCH (16:45)
[2019-04-19] MEDS: Albuterol/Ipratropium 3.0-0.5 MG/3 ML Neb Soln NEB SCH ×2 (17:39→22:34)
[2019-04-19] MEDS: Azithromycin 500 MG in Sodium Chloride 0.9% 250 ML IV SCH (17:40)
[2019-04-19] MEDS: cefTRIAXone 1 GM Vial IVPUSH SCH (17:40)
[2019-04-19] MEDS: Sodium Chloride 0.9% 1,000 ML IV SCH (17:41)
[2019-04-19] MEDS: Acetaminophen 500 MG Tab PO PRN (20:58)
[2019-04-19] MEDS: lamoTRIgine 100 MG Tab PO SCH (20:58)
[2019-04-20] MEDS: Albuterol/Ipratropium 3.0-0.5 MG/3 ML Neb Soln NEB SCH ×4 (06:24→22:28)
[2019-04-20] MEDS: Sodium Chloride 0.9% 1,000 ML IV SCH ×2 (07:50→16:28)
[2019-04-20] MEDS: Ascorbic Acid 500 MG Tab PO SCH (08:00)
[2019-04-20] MEDS: Finasteride 5 MG Tab PO SCH (08:01)
[2019-04-20] MEDS: Cholecalciferol (Vitamin D3) 25 MCG Tab PO SCH (08:01)
[2019-04-20] MEDS: lamoTRIgine 100 MG Tab PO SCH ×2 (08:01→20:01)
[2019-04-20 08:19] LABS: ANION GAP 20.1 mmol/L (5-15)
[2019-04-20] MEDS: Acetaminophen 500 MG Tab PO PRN ×2 (09:51→19:57)
--- NOTE | 2019-04-20 11:37 | PCM.PN ---
- General Info Date of Service: 04/20/19 Subjective Update: Mr. Olson reports feeling better than the past few days. Feels his breathing is easier and without as much of a productive cough. Denies recurrent fever or rigors since arrival, which he had been having at home the day prior. Tolerating diet well. Complains of generalized weakness, which has been worsening over the past few weeks, most markedly noticed since his fall two days ago. Pain of the R shoulder and R knee is controlled with acetaminophen. No new complaints. Denies fever, chills, headache, sore throat, chest pain, palpitations, abdominal pain, nausea, dysuria, or edema. No nursing concerns. - Patient Data Vitals - Most Recent: Last Vital Signs Temp 36.7 C 04/20/19 10:10 Pulse 79 04/20/19 10:10 Resp 20 04/20/19 10:10 BP 120/56 L 04/20/19 10:10 Pulse Ox 89 L 04/20/19 10:12 Weight - Most Recent: 61.144 kg I&O - Last 24 Hours: Intake & Output 04/19/19 04/20/19 04/20/19 22:59 06:59 14:59 Intake Total 220 1228 Output Total 100 Balance 220 1128 Lab Results Last 24 Hours: Laboratory Results - last 24 hr 04/19/19 04/19/19 04/20/19 Range/Units 15:20 15:20 07:19 WBC 16.87 H 10.60 H (5.00-10.00) 10^3/uL RBC 4.18 L 3.69 L (4.50-6.00) 10^6/uL Hgb 14.0 12.5 L D (13.0-17.0) g/dL Hct 41.3 36.7 L (40.0-52.0) % MCV 98.8 H 99.5 H (82.0-92.0) fL MCH 33.5 H 33.9 H (27.0-31.0) pg MCHC 33.9 34.1 (32.0-36.0) g/dL RDW 13.8 13.8 (11.5-14.5) % Plt Count 178 153 (150-400) 10^3/uL MPV 10.4 10.4 (7.4-10.4) fL Add Manual Diff Yes Yes Neutrophils % (Manual) 75 H 84 H (50-70) % Band Neutrophils % 12 10 (4-12) % Lymphocytes % (Manual) 5 L 4 L (20-40) % Monocytes % (Manual) 8 2 (2-8) % Absolute Neutrophils 12.65 9.9640 Band Neutrophils # 2.02 Lymphocytes # (Manual) 0.84 0.4240 Monocytes # (Manual) 1.35 0.2120 RBC Morph Comment Sodium 139 (136-145) mmol/L Potassium 4.3 (3.3-5.3) mmol/L Chloride 100 (98-115) mmol/L Carbon Dioxide 27.7 (21.0-32.0) mmol/L Anion Gap 15.6 H (5-15) mmol/L BUN 34 H (6-25) mg/dL Creatinine 1.65 H (0.51-1.17) mg/dL Est Cr Clr Drug Dosing 27.79 mL/min Estimated GFR (MDRD) 40 mL/min Glucose 96 (75 - 99) mg/dL Lactic Acid (0.4-2.0) mmol/L Calcium 8.9 (8.7-10.3) mg/dL Total Bilirubin 1.1 H (0.2-1.0) mg/dL AST 16 (15-37) U/L ALT 16 (12-78) U/L Alkaline Phosphatase 44 L (46-116) IU/L Total Protein 6.9 (6.4-8.2) g/dL Albumin 3.16 (3.00-4.80) g/dL 04/20/19 04/20/19 Range/Units 07:19 07:19 WBC (5.00-10.00) 10^3/uL RBC (4.50-6.00) 10^6/uL Hgb (13.0-17.0) g/dL Hct (40.0-52.0) % MCV (82.0-92.0) fL MCH (27.0-31.0) pg MCHC (32.0-36.0) g/dL RDW (11.5-14.5) % Plt Count (150-400) 10^3/uL MPV (7.4-10.4) fL Add Manual Diff Neutrophils % (Manual) (50-70) % Band Neutrophils % (4-12) % Lymphocytes % (Manual) (20-40) % Monocytes % (Manual) (2-8) % Absolute Neutrophils Band Neutrophils # Lymphocytes # (Manual) Monocytes # (Manual) RBC Morph Comment Sodium 143 (136-145) mmol/L Potassium 3.6 (3.3-5.3) mmol/L Chloride 100 (98-115) mmol/L Carbon Dioxide 26.5 (21.0-32.0) mmol/L Anion Gap 20.1 H (5-15) mmol/L BUN 43 H (6-25) mg/dL Creatinine 1.50 H (0.51-1.17) mg/dL Est Cr Clr Drug Dosing 30.57 mL/min Estimated GFR (MDRD) 44 mL/min Glucose 106 H (75 - 99) mg/dL Lactic Acid 2.2 H (0.4-2.0) mmol/L Calcium 8.2 L (8.7-10.3) mg/dL Total Bilirubin (0.2-1.0) mg/dL AST (15-37) U/L ALT (12-78) U/L Alkaline Phosphatase (46-116) IU/L Total Protein (6.4-8.2) g/dL Albumin (3.00-4.80) g/dL Med Orders - Current: Current Medications Acetaminophen (Tylenol Extra Strength) 1,000 mg PO Q6H PRN PRN Reason: Pain (moderate 4-6) Last Admin: 04/20/19 09:51 Dose: 1,000 mg Albuterol/Ipratropium (Duoneb 3.0-0.5 Mg/3 Ml) 3 ml NEB Q6HRRT [facility] Last Admin: 04/20/19 06:24 Dose: 3 ml Ascorbic Acid (Vitamin C) 1,000 mg PO DAILY [facility] Last Admin: 04/20/19 08:00 Dose: 1,000 mg Budesonide (Pulmicort) 0.5 mg INH DAILY [facility] Ceftriaxone Sodium (Rocephin) 1 gm IVPUSH Q24H [facility] Last Admin: 04/19/19 17:40 Dose: 1 gm Cholecalciferol (Vitamin D3) 25 mcg PO DAILY [facility] Last Admin: 04/20/19 08:01 Dose: 25 mcg Finasteride (Proscar) 5 mg PO DAILY [facility] Last Admin: 04/20/19 08:01 Dose: 5 mg Azithromycin 500 mg/ Sodium (Chloride) 250 mls @ 250 mls/hr IV Q24H [facility] Last Admin: 04/19/19 17:40 Dose: 250 mls/hr Sodium Chloride (Normal Saline) 1,000 mls @ 100 mls/hr IV ASDIRECTED [facility] Last Admin: 04/20/19 07:50 Dose: 75 mls/hr Lamotrigine (Lamotrigine) 100 mg PO BID [facility] Last Admin: 04/20/19 08:01 Dose: 100 mg Lorazepam (Ativan) 1 mg PO BEDTIME [facility] Sodium Chloride (Saline Flush) 10 ml FLUSH Q8HR PRN PRN Reason: keep vein open Tamsulosin HCl (Flomax) 0.8 mg PO BEDTIME [facility] Discontinued Medications Sodium Chloride (Normal Saline) 250 mls @ 250 mls/hr IV ASDIRECTED [facility] Stop: 04/19/19 17:44 - Exam Physical Findings Comments:: GENERAL: Well-appearing elderly white male lying in hospital bed in no acute distress. HEENT: Normocephalic, atraumatic. Conjunctiva clear. Nasal cannula in place. Mucous membranes moist, posterior pharynx unremarkable. NECK: Supple, no masses. CV: Regular rate and rhythm, no murmurs, rubs, or gallops. 2+ radial pulses. PULMONARY: Normal effort, mild crackles in the left lower, decreased air movement in the right lower, no wheezes. Pain to palpation of the R anterolateral chest without crepitus. ABDOMEN: Positive bowel sounds, soft, nontender, nondistended. EXTREMITIES: No edema, cyanosis, or clubbing. MUSCULOSKELETAL: Moves all extremities well. NEUROLOGICAL: No obvious deficits. DERMATOLOGIC: No rashes or suspicious lesions in exposed areas. PSYCHIATRIC: Alert, interactive, appropriate affect, mildly forgetful. - Problem List Review Problem List Initiated/Reviewed/Updated: Yes - My Orders Last 24 Hours: My Active Orders 04/19/19 13:49 Patient Status [ADT] Routine 04/19/19 14:35 Oxygen Therapy [RC] PRN Up With Assistance [RC] ASDIRECTED VTE/DVT Education [RC] PER UNIT ROUTINE Vital Signs [RC] 0300,0700,1100,1500,1900,2300 Sodium Chloride 0.9% [Saline Flush] 10 ml FLUSH Q8HR PRN Blood Culture x2 Reflex Set [OM.PC] Stat Saline Lock Insert [OM.PC] Routine Resuscitation Status Routine 04/19/19 14:38 Intake and Output [RC] 0600,1400,2200 04/19/19 15:20 CULTURE BLOOD [BC] Stat PROCALCITONIN [REF] Stat 04/19/19 16:15 CULTURE BLOOD [BC] Stat 04/19/19 17:10 STREP PNEUMONIAE ANTIGEN [MREF] Stat 04/19/19 20:15 Acetaminophen [Tylenol Extra Strength] 1,000 mg PO Q6H PRN 04/19/19 20:16 CULTURE SPUTUM + SMEAR [RM] Stat 04/19/19 Dinner Heart Healthy Diet [DIET] 04/20/19 10:33 Consult to Case Management/Supervisor Speech [CONS] Routine 04/20/19 10:37 IS (RT) [RT Incentive Spirometry] [RC] Q2HWA 04/20/19 10:45 Budesonide [Pulmicort] 0.5 mg INH DAILY 04/20/19 21:00 LORazepam [Ativan] 1 mg PO BEDTIME Tamsulosin [Flomax] 0.8 mg PO BEDTIME 04/21/19 05:11 BASIC METABOLIC PANEL,BMP [CHEM] AM CBC WITH AUTO DIFF [HEME] AM LACTIC ACID [CHEM] AM 04/21/19 07:00 PT Evaluation and Treatment [CONS] Routine - Plan Plan:: HPI summary: 88yoM with a history notable for COPD (no recent PFTs on file) who sustained a ground level fall onto his left side 2 days prior to evaluation at the [facility] on 04/19/19 with the complaint of shortness of breath, productive cough, and rigors. Evaluation was notable for oxygen saturation 84% on room air and chest/rib XRs with hazy opacity in the RLL concerning for contusion or pneumonia, chronic fibrointerstitial thickening in the lung bases, and no osseous abnormalities. He was directly admitted for further work-up and management. Hospital course: Clinical status and labs improved with IVF and antibiotics. Cultures and procalcitonin pending. Significant physical deconditioning noted, for which physical therapy and oncology social worker consultations placed. Hospitalization problems and plan: # Acute hypoxic respiratory failure # Chronic nocturnal hypoxia: 2lpm at night at baseline. # Community acquired pneumonia of the RLL, unknown organism # COPD - Continue oxygen titration to keep saturations >90% during the day - Continue ceftriaxone and azithromycin - Continue scheduled DuoNebs - Continue Pulmicort - Await procalcitonin, strep pneumoniae antigen, sputum culture, and blood cultures - Repeat CBC tomorrow # Acute kidney injury: Baseline Cr ~1. Admission Cr 1.6. Today 1.5. # Elevated lactic acid: Today 2.2. - NS 250cc bolus followed by increased rate at 100cc/hr - Recheck BMP and lactic acid tomorrow - Monitor I/O # R chest contusion - Tylenol prn # Physical deconditioning # Recurrent falls - Referrals to physical therapy and oncology social worker to assist with discharge planning, possibly to swingbed/SNF for physical therapy rehabilitation Chronic, stable conditions: # Mild diastolic dysfunction: Volume depleted currently. Not on diuretics at baseline. # PVD and hx TIA: ASA allergy, so not on at baseline. # HTN: Not hypertensive currently, likely due to volume depleted status. Hold losartan 100mg and amlodipine 5mg. # BPH: Continue tamsulosin and finasteride. # HLD: Continue atorvastatin. # Seizure disorder: Continue lamotrigine. # Insomnia: Continue lorazepam. # Hx bladder cancer Hospitalization details: # FEN: IVF at 100cc/hr. Electrolytes normal. Heart healthy diet. # PPX: Enoxaparin for DVT ppx. # Code status: DNR/DNI. # Emergency contact: . # Disposition: Continue inpatient status. Consult placed to oncology social worker to assist with possible need for swing bed/SNF placement for physical deconditioning rehabilitation.
[2019-04-20] MEDS: Budesonide 0.5 MG/2 ML Neb Susp INH SCH (11:50)
[2019-04-20] MEDS: Sodium Chloride 0.9% 250 ML IV ONE ×2 (12:33→13:51)
[2019-04-20] MEDS: cefTRIAXone 1 GM Vial IVPUSH SCH (16:47)
[2019-04-20] MEDS: Azithromycin 500 MG in Sodium Chloride 0.9% 250 ML IV SCH (16:47)
[2019-04-20] MEDS: Tamsulosin 0.4 MG Cap.ER PO SCH (20:01)
[2019-04-20] MEDS: LORazepam 0.5 MG Tab PO SCH (20:01)
[2019-04-20] MEDS: atorvaSTATin 10 MG Tab PO SCH (22:27)
[2019-04-21] MEDS: Sodium Chloride 0.9% 1,000 ML IV SCH (02:55)
[2019-04-21] MEDS: Albuterol/Ipratropium 3.0-0.5 MG/3 ML Neb Soln NEB SCH ×4 (04:38→22:08)
[2019-04-21] MEDS: Acetaminophen 500 MG Tab PO PRN ×2 (04:54→17:45)
[2019-04-21 08:08] LABS: ANION GAP 13.8 mmol/L (5-15); CHLORIDE,CL 107 mmol/L (98-115); SODIUM,NA 142 mmol/L (136-145)
[2019-04-21] MEDS: lamoTRIgine 100 MG Tab PO SCH ×2 (10:17→20:38)
[2019-04-21] MEDS: Enoxaparin 30 MG/0.3 ML Syringe SUBCUT SCH (10:17)
[2019-04-21] MEDS: Cholecalciferol (Vitamin D3) 25 MCG Tab PO SCH (10:18)
[2019-04-21] MEDS: Finasteride 5 MG Tab PO SCH (10:18)
[2019-04-21] MEDS: Budesonide 0.5 MG/2 ML Neb Susp INH SCH (10:18)
[2019-04-21] MEDS: Ascorbic Acid 500 MG Tab PO SCH (10:18)
--- NOTE | 2019-04-21 12:19 | PCM.PN ---
- General Info Date of Service: 04/21/19 Subjective Update: Mr. Olson reports feeling ongoing improvement in breathing and cough, but with persistent weakness. Cough minimally productive now. Tolerating diet well. Pain of the R shoulder and R knee is controlled with acetaminophen. No new complaints. Denies fever, chills, rigors, headache, sore throat, chest pain, palpitations, abdominal pain, nausea, dysuria, or edema. No nursing concerns. Physical therapy evaluation recommends skilled PT. tax services specialist discussed care with patient and , who agree to swing bed stay for rehabilitation. - Patient Data Vitals - Most Recent: Last Vital Signs Temp 36.1 C 04/21/19 11:07 Pulse 71 04/21/19 06:59 Resp 20 04/21/19 11:07 BP 99/45 L 04/21/19 11:07 Pulse Ox 95 04/21/19 11:07 Weight - Most Recent: 61.144 kg I&O - Last 24 Hours: Intake & Output 04/20/19 04/21/19 04/21/19 22:59 06:59 14:59 Intake Total 1428 1045 Output Total 400 500 Balance 1028 545 Lab Results Last 24 Hours: Laboratory Results - last 24 hr 04/21/19 04/21/19 04/21/19 Range/Units 07:35 07:35 07:35 WBC 7.18 (5.00-10.00) 10^3/uL RBC 3.26 L (4.50-6.00) 10^6/uL Hgb 10.9 L D (13.0-17.0) g/dL Hct 32.5 L (40.0-52.0) % MCV 99.7 H (82.0-92.0) fL MCH 33.4 H (27.0-31.0) pg MCHC 33.5 (32.0-36.0) g/dL RDW 14.0 (11.5-14.5) % Plt Count 147 L (150-400) 10^3/uL MPV 10.3 (7.4-10.4) fL Add Manual Diff Yes Neutrophils % (Manual) 83 H (50-70) % Band Neutrophils % 8 (4-12) % Lymphocytes % (Manual) 6 L (20-40) % Monocytes % (Manual) 2 (2-8) % Eosinophils % (Manual) 1 (1-3) % Absolute Neutrophils 5.96 Band Neutrophils # 0.57 Lymphocytes # (Manual) 0.43 Monocytes # (Manual) 0.14 Eosinophils # (Manual) 0.07 Sodium 142 (136-145) mmol/L Potassium 3.8 (3.3-5.3) mmol/L Chloride 107 (98-115) mmol/L Carbon Dioxide 25.0 (21.0-32.0) mmol/L Anion Gap 13.8 (5-15) mmol/L BUN 34 H (6-25) mg/dL Creatinine 1.05 (0.51-1.17) mg/dL Est Cr Clr Drug Dosing 43.67 mL/min Estimated GFR (MDRD) > 60 mL/min Glucose 90 (75 - 99) mg/dL Lactic Acid 0.7 (0.4-2.0) mmol/L Calcium 7.9 L (8.7-10.3) mg/dL [place] Results Last 24 Hours: Microbiology 04/19/19 16:15 Aerobic Blood Culture - Preliminary Blood - Venous - Lab Draw NO GROWTH AFTER 1 DAY Anaerobic Blood Culture - Preliminary NO GROWTH AFTER 1 DAY 04/19/19 15:20 Aerobic Blood Culture - Preliminary Blood - Venous NO GROWTH AFTER 1 DAY Anaerobic Blood Culture - Preliminary NO GROWTH AFTER 1 DAY Med Orders - Current: Current Medications Acetaminophen (Tylenol Extra Strength) 1,000 mg PO Q6H PRN PRN Reason: Pain (moderate 4-6) Last Admin: 04/21/19 04:54 Dose: 1,000 mg Albuterol/Ipratropium (Duoneb 3.0-0.5 Mg/3 Ml) 3 ml NEB Q6HRRT [facility] Last Admin: 04/21/19 11:05 Dose: 3 ml Ascorbic Acid (Vitamin C) 1,000 mg PO DAILY [facility] Last Admin: 04/21/19 10:18 Dose: 1,000 mg Atorvastatin Calcium (Lipitor) 20 mg PO BEDTIME [facility] Last Admin: 04/20/19 22:27 Dose: 20 mg Budesonide (Pulmicort) 0.5 mg INH DAILY [facility] Last Admin: 04/21/19 10:18 Dose: 0.5 mg Ceftriaxone Sodium (Rocephin) 1 gm IVPUSH Q24H [facility] Last Admin: 04/20/19 16:47 Dose: 1 gm Cholecalciferol (Vitamin D3) 25 mcg PO DAILY [facility] Last Admin: 04/21/19 10:18 Dose: 25 mcg Enoxaparin Sodium (Lovenox) 30 mg SUBCUT Q24H [facility] Last Admin: 04/21/19 10:17 Dose: 30 mg Finasteride (Proscar) 5 mg PO DAILY [facility] Last Admin: 04/21/19 10:18 Dose: 5 mg Azithromycin 500 mg/ Sodium (Chloride) 250 mls @ 250 mls/hr IV Q24H [facility] Last Admin: 04/20/19 16:47 Dose: 250 mls/hr Sodium Chloride (Normal Saline) 1,000 mls @ 100 mls/hr IV ASDIRECTED [facility] Last Admin: 04/21/19 02:55 Dose: 100 mls/hr Lamotrigine (Lamotrigine) 100 mg PO BID [facility] Last Admin: 04/21/19 10:17 Dose: 100 mg Lorazepam (Ativan) 1 mg PO BEDTIME [facility] Last Admin: 04/20/19 20:01 Dose: 1 mg Sodium Chloride (Saline Flush) 10 ml FLUSH Q8HR PRN PRN Reason: keep vein open Tamsulosin HCl (Flomax) 0.8 mg PO BEDTIME [facility] Last Admin: 04/20/19 20:01 Dose: 0.8 mg Discontinued Medications Sodium Chloride (Normal Saline) 250 mls @ 250 mls/hr IV ASDIRECTED [facility] Stop: 04/19/19 17:44 Sodium Chloride (Normal Saline) 1,000 mls @ 100 mls/hr IV ASDIRECTED [facility] Last Admin: 04/20/19 07:50 Dose: 75 mls/hr Sodium Chloride (Normal Saline) 250 mls @ 250 mls/hr IV .BOLUS ONE Stop: 04/20/19 12:36 Last Admin: 04/20/19 12:33 Dose: 250 mls/hr - Exam Physical Findings Comments:: GENERAL: Well-appearing elderly white male lying in hospital bed in no acute distress. HEENT: Normocephalic, atraumatic. Conjunctiva clear. Nasal cannula in place. Mucous membranes moist, posterior pharynx unremarkable. NECK: Supple, no masses. CV: Regular rate and rhythm, no murmurs, rubs, or gallops. 2+ radial pulses. PULMONARY: Normal effort, mild crackles in the left lower, decreased air movement in the right lower, no wheezes. Chest nontender to palpation. ABDOMEN: Positive bowel sounds, soft, nontender, nondistended. EXTREMITIES: No edema, cyanosis, or clubbing. MUSCULOSKELETAL: Moves all extremities well. R knee without deformity, edema, ecchymosis, or localized tenderness to palpation. NEUROLOGICAL: No obvious deficits. DERMATOLOGIC: No rashes or suspicious lesions in exposed areas. PSYCHIATRIC: Alert, interactive, appropriate affect. - Problem List Review Problem List Initiated/Reviewed/Updated: Yes - My Orders Last 24 Hours: My Active Orders 04/20/19 13:00 Sodium Chloride 0.9% [Normal Saline] 1,000 ml IV ASDIRECTED 04/20/19 21:00 LORazepam [Ativan] 1 mg PO BEDTIME Tamsulosin [Flomax] 0.8 mg PO BEDTIME 04/20/19 22:15 atorvaSTATin [Lipitor] 20 mg PO BEDTIME 04/21/19 07:00 PT Evaluation and Treatment [CONS] Routine 04/21/19 09:00 Enoxaparin [Lovenox] 30 mg SUBCUT Q24H - Plan Plan:: HPI summary: 88yoM with a history notable for COPD (no recent PFTs on file) who sustained a ground level fall onto his left side 2 days prior to evaluation at the [facility] on 04/19/19 with the complaint of shortness of breath, productive cough, and rigors. Evaluation was notable for oxygen saturation 84% on room air and chest/rib XRs with hazy opacity in the RLL concerning for contusion or pneumonia, chronic fibrointerstitial thickening in the lung bases, and no osseous abnormalities. He was directly admitted for further work-up and management. Hospital course: Clinical status and labs improved with IVF and antibiotics. Culture no growth x1day and procalcitonin pending. Significant physical deconditioning noted, for which physical therapy and social media content specialist consultations recommend rehabilitation stay, for which swing bed placement planned. Hospitalization problems and plan: # Acute hypoxic respiratory failure # Chronic nocturnal hypoxia: 2lpm at night at baseline. # Community acquired pneumonia of the RLL, unknown organism # COPD - Continue oxygen titration to keep saturations >90% during the day; continue oxygen 2lpm at night as is baseline - Continue ceftriaxone and azithromycin to complete 2 day IV course awaiting culture results; plan to switch to oral regimen tomorrow - Continue scheduled DuoNebs - Continue Pulmicort - Await procalcitonin, strep pneumoniae antigen, further sputum culture and further blood cultures # Acute kidney injury, resolved: Baseline Cr ~1. Admission Cr 1.6. 04/21/19 1. # Elevated lactic acid, resolved: 04/20/19 2.2. 04/21/19 0.7. - Decrease NS to 50cc/hr; plan to discontinue tomorrow - Monitor I/O # R chest contusion # R knee contusion - Tylenol prn # Physical deconditioning # Recurrent falls - Plan for swing bed placement tomorrow for physical therapy rehabilitation Chronic, stable conditions: # Mild diastolic dysfunction: No evidence of overload. Not on diuretics at baseline. # PVD and hx TIA: ASA allergy, so not on at baseline. # HTN: Not hypertensive currently, likely due to recently volume depleted status. Hold losartan 100mg and amlodipine 5mg. Plan to restart as able. # BPH: Continue tamsulosin and finasteride. # HLD: Continue atorvastatin. # Seizure disorder: Continue lamotrigine. # Insomnia: Continue lorazepam. # Hx bladder cancer Hospitalization details: # FEN: IVF at 50cc/hr. Electrolytes normal. Heart healthy diet. # PPX: Enoxaparin for DVT ppx. # Code status: DNR/DNI. # Emergency contact: . # Disposition: Continue inpatient status. Plan for swing bed placement for physical deconditioning rehabilitation tomorrow.
[2019-04-21] MEDS ORDERED: Sodium Chloride 0.9% 1,000 ML IV SCH (13:00)
[2019-04-21] MEDS: Azithromycin 500 MG in Sodium Chloride 0.9% 250 ML IV SCH (16:25)
[2019-04-21] MEDS: cefTRIAXone 1 GM Vial IVPUSH SCH (17:49)
[2019-04-21] MEDS: LORazepam 0.5 MG Tab PO SCH (20:38)
[2019-04-21] MEDS: Tamsulosin 0.4 MG Cap.ER PO SCH (20:38)
[2019-04-21] MEDS: atorvaSTATin 10 MG Tab PO SCH (20:38)
[2019-04-22] MEDS: Albuterol/Ipratropium 3.0-0.5 MG/3 ML Neb Soln NEB SCH ×6 (03:28→21:22)
[2019-04-22] MEDS: Ascorbic Acid 500 MG Tab PO SCH (08:26)
[2019-04-22] MEDS: Enoxaparin 30 MG/0.3 ML Syringe SUBCUT SCH (08:26)
[2019-04-22] MEDS: Finasteride 5 MG Tab PO SCH (08:27)
[2019-04-22] MEDS: Cholecalciferol (Vitamin D3) 25 MCG Tab PO SCH (08:27)
[2019-04-22] MEDS: lamoTRIgine 100 MG Tab PO SCH ×2 (08:27→21:17)
[2019-04-22] MEDS: Budesonide 0.5 MG/2 ML Neb Susp INH SCH (09:06)
[2019-04-22] MEDS: predniSONE 20 MG Tab PO SCH (09:48)
--- NOTE | 2019-04-22 13:00 | PN ---
04/22/2019 PATIENT NAME: ROYAL Stacey REYNAGA SUBJECTIVE: This is an 88-year-old male, who is being seen today for progress note. He was admitted to the hospital on 04/20/2019, due to a right pneumonia after a fall and injury to the upper chest area. Today, patient is afebrile. Vitals are stable with blood pressure of 117/57, and today, patient denies any frequency of cough. He is not expectorating much mucus. He is complaining of generalized weakness, but no fever, chest pain, palpitations, edema, or abdominal discomfort. The patient is afebrile. MEDICATIONS: The patient is being treated with Rocephin 1 g IV every 24 hours IV azithromycin 500 mg every 24 hours. PHYSICAL EXAMINATION: GENERAL: The patient is alert and responding well. HEENT: Normocephalic. NECK: Range of motion supple. No cervical lymphadenopathy. No carotid enlargement. CARDIAC: Heart tones are regular without murmur or extra heart sounds. LUNGS: Crackles in the right lobe, upper and lower. There is no wheeze. It is noted that there is tightness to the respiratory such as an audible wheeze, but no wheeze heard on auscultation. ABDOMEN: Soft, nondistended. No tenderness present. EXTREMITIES: No peripheral edema or color change. MUSCULOSKELETAL: The patient has good range of motion of upper and lower extremities. NEUROLOGICAL: The patient is alert and responding well. Memory is excellent. IMPRESSION: 1. Acute hypoxic respiratory failure. 2. Community-acquired pneumonia of the right lower lung. 3. Chronic obstructive pulmonary disease, stable. 4. Right chest contusion due to fall. 5. Other medical history includes hypertension, peripheral vascular disease, hyperlipidemia, benign prostatic hyperplasia, and seizure disorder. PLAN: We will continue on the IVs as previously and healthy diet. He is on enoxaparin for DVT prophylaxis. He will increase his DuoNeb today to every 4 hours while awake to help with expectoration of mucus and increase his expectoration. Possible change, transfer to swing bed unit tomorrow for physical therapy due to generalized weakness. /[id number]/MODL
[2019-04-22] MEDS: cefTRIAXone 1 GM Vial IVPUSH SCH (16:37)
[2019-04-22] MEDS: Azithromycin 500 MG in Sodium Chloride 0.9% 250 ML IV SCH (16:39)
[2019-04-22] MEDS: atorvaSTATin 10 MG Tab PO SCH (21:16)
[2019-04-22] MEDS: Tamsulosin 0.4 MG Cap.ER PO SCH (21:16)
[2019-04-22] MEDS: LORazepam 0.5 MG Tab PO SCH (21:17)
[2019-04-22] MEDS: Acetaminophen 500 MG Tab PO PRN (21:57)
[2019-04-23] MEDS: Albuterol/Ipratropium 3.0-0.5 MG/3 ML Neb Soln NEB SCH ×4 (02:19→12:26)
[2019-04-23] MEDS: Acetaminophen 500 MG Tab PO PRN (04:26)
[2019-04-23 07:36] LABS: ANION GAP 14.3 mmol/L (5-15); CHLORIDE,CL 103 mmol/L (98-115); SODIUM,NA 141 mmol/L (136-145)
[2019-04-23] MEDS: lamoTRIgine 100 MG Tab PO SCH (08:45)
[2019-04-23] MEDS: Ascorbic Acid 500 MG Tab PO SCH (08:45)
[2019-04-23] MEDS: Cholecalciferol (Vitamin D3) 25 MCG Tab PO SCH (08:45)
[2019-04-23] MEDS: Finasteride 5 MG Tab PO SCH (08:45)
[2019-04-23] MEDS: Enoxaparin 30 MG/0.3 ML Syringe SUBCUT SCH (08:45)
[2019-04-23] MEDS: predniSONE 20 MG Tab PO SCH (08:46)
[2019-04-23] MEDS ORDERED: Amoxicillin/Clavulanate K 875-125 MG Tab PO SCH (09:00)
[2019-04-23] MEDS ORDERED: Losartan 50 MG Tab PO SCH (09:00)
[2019-04-23] MEDS ORDERED: amLODIPine 5 MG Tab PO SCH (09:00)
[2019-04-23] MEDS ORDERED: Azithromycin 250 MG Tab PO SCH (09:00)
[2019-04-23] MEDS: Budesonide 0.5 MG/2 ML Neb Susp INH SCH (09:18)
[2019-04-23 11:25] VITALS: PULSE 77
[2019-04-23 15:31] VITALS: BP 151/81
[2019-04-23] MEDS ORDERED: Polyethylene Glycol 3350 Powder 17 GM Packet PO ONE (15:58)
[2019-04-23] MEDS ORDERED: Bisacodyl 5 MG Tab PO ONE (15:58)
[2019-04-23] MEDS ORDERED: Polyethylene Glycol 3350 Powder 17 GM Packet PO PRN (16:00)
--- NOTE | 2019-04-23 16:35 | PCM.DCSUM1 ---
Discharge Summary - Hospital Course Free Text/Narrative:: Date of admission: 04/19/19 Date of discharge: 04/23/19 Admission diagnoses: # Acute hypoxic respiratory failure # Chronic nocturnal hypoxia # Community acquired pneumonia of the RLL, unknown organism # COPD, with acute exacerbation # R chest contusion # R knee contusion # Physical deconditioning # Recurrent falls # Mild diastolic dysfunction # PVD # Hx TIA # HTN # BPH # HLD # Seizure disorder # Insomnia # Hx bladder cancer Discharge diagnoses: # Acute hypoxic respiratory failure # Chronic nocturnal hypoxia # Community acquired pneumonia of the RLL, unknown organism # COPD, with acute exacerbation # Acute kidney injury, resolved # Elevated lactic acid, resolved # R chest contusion # R knee contusion # Physical deconditioning # Recurrent falls # Mild diastolic dysfunction # PVD # Hx TIA # HTN # BPH # HLD # Seizure disorder # Insomnia # Hx bladder cancer Consultations: marketing services vice president Physical therapy Procedures: None Hospital course: 88yoM with a history notable for COPD (no recent PFTs on file) and chronic nocturnal hypoxia (on oxygen 2.5lpm at home at night) who sustained a ground level fall onto his left side on 04/17/19 for which he was subsequently evaluated and admitted to inpatient status 2 days later for pneumonia and acute kidney injury. Clinical status and labs improved with IVF, antibiotics ( ceftriaxone/azithromycin IV followed by Augmentin/azithromycin po), and DuoNebs as well as subsequent prednisone burst, though ongoing oxygen during the day was needed. Blood cultures negative and no complications arose during his acute stay. Other home medications were continued with the exception of antihypertensives which were initially held due to volume depletion. Significant physical deconditioning noted, for which physical therapy and addiction social worker consultations recommend rehabilitation stay, for which swing bed placement was agreed to. Discharge and follow-up recommendations: - [facility] - Discharge Data Discharge Date: 04/23/19 Discharge Disposition: DC/Tfer W/I Hosp To Swing Condition: Good - Referral to Home Health Primary Care Physician: Lakisha Muñiz NP - Patient Summary/Data Consults: Consultations 04/20/19 10:33 Consult to Case Management/Latin Dance Instructor [CONS] Routine 04/21/19 07:00 PT Evaluation and Treatment [CONS] Routine - Discharge Plan Home Medications: Home Meds LORazepam [Ativan] 1 mg PO BEDTIME 10/28/13 [History] Losartan [Cozaar] 100 mg PO DAILY 10/28/13 [History] Tamsulosin [Flomax] 0.8 mg PO BEDTIME 10/28/13 [History] amLODIPine [Norvasc] 5 mg PO DAILY 10/28/13 [History] lamoTRIgine [Lamictal] 100 mg PO BID 10/28/13 [History] Ascorbic Acid [C-1000] 1,000 mg PO DAILY 07/25/15 [History] Budesonide [Pulmicort] 1 unit INH DAILY 07/25/15 [History] Cholecalciferol (Vitamin D3) [Vitamin D3] 1 tab PO DAILY 07/25/15 [History] Garlic 1 tab PO DAILY 07/25/15 [History] atorvaSTATin [Lipitor] 20 mg PO BEDTIME #30 tablet 07/29/15 [Rx] Finasteride [Proscar] 5 mg PO DAILY 09/14/16 [History] Albuterol Sulfate [Albuterol Sulfate Hfa] 1 puff INH Q4HR PRN 04/19/19 [History] Albuterol [Proventil Neb Soln] 3 ml INH Q4HR PRN 04/19/19 [History] Nystatin/Triamcinolone Crm [Mycolog Crm] 1 applic TOP BID 04/19/19 [History] Tolnaftate [Tinactin] 1 applic TOP BID 04/19/19 [History] - Discharge Summary/Plan Comment DC Time >30 min.: Yes - General Info Date of Service: 04/23/19 Subjective Update: Mr. Olson reports feeling overall well today aside from generalized weakness and being "unsteady on [his] feet." Cough and shortness of breath much improved since acute admission. Tolerating diet well. Ambulates with walker and currently unsteady requiring assistance. Pain of the R shoulder and R knee is controlled with acetaminophen. No new complaints. - Patient Data Vitals - Most Recent: Last Vital Signs Temp 37.1 C 04/23/19 15:00 Pulse 77 04/23/19 15:00 Resp 22 H 04/23/19 15:00 BP 151/81 H 04/23/19 15:00 Pulse Ox 89 L 04/23/19 15:00 Weight - Most Recent: 61.144 kg I&O - Last 24 hours: Intake & Output 04/23/19 04/23/19 04/23/19 06:59 14:59 22:59 Intake Total 100 300 Output Total 700 825 Balance -600 -525 Lab Results - Last 24 hrs: Laboratory Results - last 24 hr 04/23/19 04/23/19 Range/Units 07:00 07:00 WBC 6.08 (5.00-10.00) 10^3/uL RBC 3.44 L (4.50-6.00) 10^6/uL Hgb 11.7 L (13.0-17.0) g/dL Hct 34.0 L (40.0-52.0) % MCV 98.8 H (82.0-92.0) fL MCH 34.0 H (27.0-31.0) pg MCHC 34.4 (32.0-36.0) g/dL RDW 13.9 (11.5-14.5) % Plt Count 177 (150-400) 10^3/uL MPV 10.0 (7.4-10.4) fL Immature Gran % (Auto) 0.7 (0.0-5.0) % Neut % (Auto) 80.3 H (50.0-70.0) % Lymph % (Auto) 10.4 L (20.0-40.0) % Collier % (Auto) 8.4 H (2.0-8.0) % Eos % (Auto) 0.0 L (1.0-3.0) % Baso % (Auto) 0.2 (0.0-1.0) % Immature Gran # (Auto) 0.04 (0.00-0.50) 10^3/uL Neut # (Auto) 4.89 (2.50-7.00) 10^3/uL Lymph # (Auto) 0.63 L (1.00-4.00) 10^3/uL Collier # (Auto) 0.51 (0.10-0.80) 10^3/uL Eos # (Auto) 0.00 L (0.10-0.30) 10^3/uL Baso # (Auto) 0.01 (0.00-0.10) 10^3/uL Sodium 141 (136-145) mmol/L Potassium 4.0 (3.3-5.3) mmol/L Chloride 103 (98-115) mmol/L Carbon Dioxide 27.7 (21.0-32.0) mmol/L Anion Gap 14.3 (5-15) mmol/L BUN 11 (6-25) mg/dL Creatinine 0.69 (0.51-1.17) mg/dL Est Cr Clr Drug Dosing 66.46 mL/min Estimated GFR (MDRD) > 60 mL/min Glucose 121 H (75 - 99) mg/dL Calcium 8.6 L (8.7-10.3) mg/dL MAGDAL[facility] Results - Last 24 hrs: Microbiology 04/19/19 16:15 Aerobic Blood Culture - Preliminary Blood - Venous - Lab Draw NO GROWTH AFTER 4 DAYS Anaerobic Blood Culture - Preliminary NO GROWTH AFTER 4 DAYS 04/19/19 15:20 Aerobic Blood Culture - Preliminary Blood - Venous NO GROWTH AFTER 4 DAYS Anaerobic Blood Culture - Preliminary NO GROWTH AFTER 4 DAYS Med Orders - Current: Current Medications Discontinued Medications Acetaminophen (Tylenol Extra Strength) 1,000 mg PO Q6H PRN PRN Reason: Pain (moderate 4-6) Last Admin: 04/23/19 04:26 Dose: 1,000 mg Albuterol/Ipratropium (Duoneb 3.0-0.5 Mg/3 Ml) 3 ml NEB Q6HRRT [facility] Last Admin: 04/22/19 05:54 Dose: Not Given Albuterol/Ipratropium (Duoneb 3.0-0.5 Mg/3 Ml) 3 ml NEB Q4HRRT [facility] Last Admin: 04/23/19 12:26 Dose: 3 ml Amlodipine Besylate (Norvasc) 5 mg PO DAILY [facility] Last Admin: 04/23/19 09:56 Dose: 5 mg Amoxicillin/Clavulanate Potassium (Augmentin 875 Mg/125 Mg) 1 tab PO BID [facility] Stop: 04/25/19 21:01 Last Admin: 04/23/19 08:46 Dose: 1 tab Ascorbic Acid (Vitamin C) 1,000 mg PO DAILY [facility] Last Admin: 04/23/19 08:45 Dose: 1,000 mg Atorvastatin Calcium (Lipitor) 20 mg PO BEDTIME [facility] Last Admin: 04/22/19 21:16 Dose: 20 mg Azithromycin (Zithromax) 250 mg PO DAILY [facility] Stop: 04/24/19 09:01 Last Admin: 04/23/19 08:45 Dose: 250 mg Bisacodyl (Dulcolax) 10 mg PO ONETIME ONE Stop: 04/23/19 15:59 Last Admin: 04/23/19 16:21 Dose: 10 mg Budesonide (Pulmicort) 0.5 mg INH DAILY [facility] Last Admin: 04/23/19 09:18 Dose: 0.5 mg Ceftriaxone Sodium (Rocephin) 1 gm IVPUSH Q24H [facility] Stop: 04/22/19 18:00 Last Admin: 04/22/19 16:37 Dose: 1 gm Cholecalciferol (Vitamin D3) 25 mcg PO DAILY [facility] Last Admin: 04/23/19 08:45 Dose: 25 mcg Enoxaparin Sodium (Lovenox) 30 mg SUBCUT Q24H [facility] Last Admin: 04/23/19 08:45 Dose: 30 mg Finasteride (Proscar) 5 mg PO DAILY [facility] Last Admin: 04/23/19 08:45 Dose: 5 mg Azithromycin 500 mg/ Sodium (Chloride) 250 mls @ 250 mls/hr IV Q24H [facility] Stop: 04/22/19 18:00 Last Admin: 04/22/19 16:39 Dose: 250 mls/hr Sodium Chloride (Normal Saline) 250 mls @ 250 mls/hr IV ASDIRECTED [facility] Stop: 04/19/19 17:44 Sodium Chloride (Normal Saline) 1,000 mls @ 100 mls/hr IV ASDIRECTED [facility] Last Admin: 04/20/19 07:50 Dose: 75 mls/hr Sodium Chloride (Normal Saline) 250 mls @ 250 mls/hr IV .BOLUS ONE Stop: 04/20/19 12:36 Last Admin: 04/20/19 12:33 Dose: 250 mls/hr Sodium Chloride (Normal Saline) 1,000 mls @ 100 mls/hr IV ASDIRECTED [facility] Last Infusion: 04/21/19 13:24 Dose: Infused Sodium Chloride (Normal Saline) 1,000 mls @ 50 mls/hr IV ASDIRECTED [facility] Last Admin: 04/21/19 13:28 Dose: 50 mls/hr Lamotrigine (Lamotrigine) 100 mg PO BID [facility] Last Admin: 04/23/19 08:45 Dose: 100 mg Lorazepam (Ativan) 1 mg PO BEDTIME [facility] Last Admin: 04/22/19 21:17 Dose: 1 mg Losartan Potassium (Cozaar) 100 mg PO DAILY [facility] Last Admin: 04/23/19 09:56 Dose: 100 mg Polyethylene Glycol (Miralax) 17 gm PO ONETIME ONE Stop: 04/23/19 15:59 Last Admin: 04/23/19 16:21 Dose: 17 gm Polyethylene Glycol (Miralax) 17 gm PO BEDTIME PRN PRN Reason: Constipation Prednisone (Prednisone) 40 mg PO DAILY [facility] Last Admin: 04/23/19 08:46 Dose: 40 mg Sodium Chloride (Saline Flush) 10 ml FLUSH Q8HR PRN PRN Reason: keep vein open Tamsulosin HCl (Flomax) 0.8 mg PO BEDTIME [facility] Last Admin: 04/22/19 21:16 Dose: 0.8 mg - Exam Physical Findings Comments:: GENERAL: Well-appearing elderly white male lying in hospital bed in no acute distress. HEENT: Normocephalic, atraumatic. Conjunctiva clear. Nasal cannula in place. Mucous membranes moist, posterior pharynx unremarkable. NECK: Supple, no masses. CV: Regular rate and rhythm, no murmurs, rubs, or gallops. 2+ radial pulses. PULMONARY: Normal effort, mild crackles in the right lower, no wheezes or rhonchi. Chest nontender to palpation. ABDOMEN: Positive bowel sounds, soft, nontender, nondistended. EXTREMITIES: No edema, cyanosis, or clubbing. MUSCULOSKELETAL: Moves all extremities well. R knee without deformity, edema, ecchymosis, or localized tenderness to palpation. NEUROLOGICAL: No obvious deficits. DERMATOLOGIC: No rashes or suspicious lesions in exposed areas. PSYCHIATRIC: Alert, interactive, appropriate affect.
== END 2019-04-23 16:25 | disposition swing bed (61) | DRG 193 ==
LOC: KA.MS 13:49 → UNDODISIN 04-23 16:00
PROVIDERS: ADMIT Nurse Practitioner Family; ATTEND Family Medicine
DX: J18.9 Pneumonia, unspecified organism (principal); J96.01 Acute respiratory failure with hypoxia; J44.0 Chronic obstructive pulmonary disease with (acute) lower respiratory infection; N17.9 Acute kidney failure, unspecified; Z66 Do not resuscitate; I73.9 Peripheral vascular disease, unspecified; Z86.73 Personal history of transient ischemic attack (TIA), and cerebral infarction without residual deficits; J44.9 Chronic obstructive pulmonary disease, unspecified; E78.5 Hyperlipidemia, unspecified; G40.909 Epilepsy, unspecified, not intractable, without status epilepticus; W19.XXXA Unspecified fall, initial encounter; S20.211A Contusion of right front wall of thorax, initial encounter; S80.01XA Contusion of right knee, initial encounter; R29.6 Repeated falls; N40.0 Benign prostatic hyperplasia without lower urinary tract symptoms; G47.00 Insomnia, unspecified; Z99.81 Dependence on supplemental oxygen; Z88.6 Allergy status to analgesic agent; Z88.8 Allergy status to other drugs, medicaments and biological substances; F32.9 Major depressive disorder, single episode, unspecified; Z85.51 Personal history of malignant neoplasm of bladder; Z98.49 Cataract extraction status, unspecified eye; Z87.891 Personal history of nicotine dependence
CPT/HCPCS: 36415; 80048; 80053; 83605; 84145; 85025; 87040; 87070; 87205; 87899; 94640; 97162-GP; A9270-GY; J0456; J0696; J1650; J7030; J7050; J7620-GY

== ENCOUNTER 2019-04-23 14:58 | Inpatient (IN) | payer MEDICARE, OTHER ==
[2019-04-23] MEDS ORDERED: Polyethylene Glycol 3350 Powder 17 GM Packet PO PRN (16:26)
[2019-04-23] MEDS ORDERED: Albuterol/Ipratropium 3.0-0.5 MG/3 ML Neb Soln NEB PRN (16:31)
--- NOTE | 2019-04-23 16:35 | PCM.HP.2 ---
H&P History of Present Illness - General Date of Service: 04/23/19 Admit Problem/Dx: Admission Diagnosis/Problem Admission Diagnosis/Problem Pneumonia of lower lobe of lung Source of Information: Patient, Family, Old Records, RN, RN Notes Reviewed - History of Present Illness Initial Comments - Free Text/Narative: Mr. Olson reports feeling overall well today aside from generalized weakness and being "unsteady on [his] feet." Cough and shortness of breath much improved since acute admission. Tolerating diet well. Ambulates with walker and currently unsteady requiring assistance. Pain of the R shoulder and R knee is controlled with acetaminophen. No new complaints. - Related Data Allergies/Adverse Reactions: Allergies Allergy/AdvReac Type Severity Reaction Status Date / Time aspirin Allergy Other Verified 04/24/19 07:40 atenolol Allergy Syncope Verified 04/24/19 07:40 Beta-Blockers Allergy Dizziness Verified 04/24/19 07:40 (Beta-Adrenergic Bloc Home Medications: Home Meds LORazepam [Ativan] 1 mg PO BEDTIME 10/28/13 [History] Losartan [Cozaar] 100 mg PO DAILY 10/28/13 [History] Tamsulosin [Flomax] 0.8 mg PO BEDTIME 10/28/13 [History] amLODIPine [Norvasc] 5 mg PO DAILY 10/28/13 [History] lamoTRIgine [Lamictal] 100 mg PO BID 10/28/13 [History] Ascorbic Acid [C-1000] 1,000 mg PO DAILY 07/25/15 [History] Budesonide [Pulmicort] 1 unit INH DAILY 07/25/15 [History] Cholecalciferol (Vitamin D3) [Vitamin D3] 1 tab PO DAILY 07/25/15 [History] Garlic 1 tab PO DAILY 07/25/15 [History] atorvaSTATin [Lipitor] 20 mg PO BEDTIME #30 tablet 07/29/15 [Rx] Finasteride [Proscar] 5 mg PO DAILY 09/14/16 [History] Albuterol Sulfate [Albuterol Sulfate Hfa] 1 puff INH Q4HR PRN 04/19/19 [History] Albuterol [Proventil Neb Soln] 3 ml INH Q4HR PRN 04/19/19 [History] Nystatin/Triamcinolone Crm [Mycolog Crm] 1 applic TOP BID 04/19/19 [History] Tolnaftate [Tinactin] 1 applic TOP BID 04/19/19 [History] Past Medical History HEENT History: Reports: Cataract, Hard of Hearing, Impaired Vision Cardiovascular History: Reports: High Cholesterol, Hypertension Respiratory History: Reports: Asthma, COPD, Pneumonia, Recurrent Gastrointestinal History: Reports: Chronic Constipation, GERD Genitourinary History: Reports: BPH Musculoskeletal History: Reports: Back Pain, Chronic Neurological History: Reports: CVA Endocrine/Metabolic History: Reports: None Oncologic (Cancer) History: Reports: Bladder - Infectious Disease History Infectious Disease History: Reports: Chicken Pox, Measles, Mumps, Rubella, Other (See Below) Other Infectious Disease History: Polio 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 - Past Surgical History HEENT Surgical History: Reports: Cataract Surgery, Tonsillectomy Cardiovascular Surgical History: Reports: Carotid Endarterectomy Male Surgical History: Reports: Cystectomy Endocrine Surgical History: Reports: None Social & Family History - Family History Cardiac: Reports: Hypertension - Caffeine Use Caffeine Use: Reports: Coffee H&P Review of Systems - Review of Systems: Review Of Systems: See Below General: Reports: Weakness, Fatigue. Denies: Fever, Chills, Decreased Appetite HEENT: Denies: Ear Pain, Eye Pain, Headaches Pulmonary: Denies: Shortness of Breath, Cough, Sputum Cardiovascular: Denies: Chest Pain, Palpitations, Edema Gastrointestinal: Reports: Constipation. Denies: Abdominal Pain, Diarrhea, Decreased Appetite, Nausea Genitourinary: Denies: Dysuria, Frequency, Pain Musculoskeletal: Reports: Joint Pain. Denies: Back Pain, Joint Swelling, Muscle Stiffness Skin: Denies: Bruising, Rash, Wound Psychiatric: Denies: Confusion, Depression, Anxiety Neurological: Denies: Confusion, Dizziness, Headache, Numbness, Tingling Exam - Exam Exam: See Below - Exam Physical Exam Comments:: GENERAL: Well-appearing elderly white male lying in hospital bed in no acute distress. HEENT: Normocephalic, atraumatic. Conjunctiva clear. Nasal cannula in place. Mucous membranes moist, posterior pharynx unremarkable. NECK: Supple, no masses. CV: Regular rate and rhythm, no murmurs, rubs, or gallops. 2+ radial pulses. PULMONARY: Normal effort, mild crackles in the right lower, no wheezes or rhonchi. Chest nontender to palpation. ABDOMEN: Positive bowel sounds, soft, nontender, nondistended. EXTREMITIES: No edema, cyanosis, or clubbing. MUSCULOSKELETAL: Moves all extremities well. R knee without deformity, edema, ecchymosis, or localized tenderness to palpation. NEUROLOGICAL: No obvious deficits. DERMATOLOGIC: No rashes or suspicious lesions in exposed areas. PSYCHIATRIC: Alert, interactive, appropriate affect. Problem List Initiated/Reviewed/Updated: Yes Orders Last 24hrs: Active Orders 24 hr Category Date Time Status Patient Status [ADT] Routine ADT 04/23/19 16:26 Active IS (RT) [RT Incentive Spirometry] [RC] Q2HWA Care 04/23/19 16:26 Active Oxygen Therapy [RC] PRN Care 04/23/19 16:26 Active RT Aerosol Therapy [RC] ASDIRECTED Care 04/23/19 16:26 Active RT Aerosol Therapy [RC] ASDIRECTED Care 04/23/19 16:31 Inactive Up With Assistance [RC] ASDIRECTED Care 04/23/19 16:26 Active VTE/DVT Education [RC] PER UNIT ROUTINE Care 04/23/19 16:26 Active Vital Signs [RC] BID Care 04/23/19 16:26 Active Consult to Case Management/Meat Process Worker [CONS] Cons 04/23/19 16:26 Active Routine PT Evaluation and Treatment [CONS] Routine Cons 04/23/19 16:26 Active Albuterol/Ipratropium [DuoNeb 3.0-0.5 MG/3 ML] Med 04/23/19 16:31 Ordered 3 ml NEB Q6HRRT PRN Amoxicillin/Clavulanate K [Augmentin 875 MG/125 MG] Med 04/23/19 21:00 Ordered 1 tab PO BID Ascorbic Acid [C-1000] Med 04/24/19 09:00 Ordered 1,000 mg PO DAILY Azithromycin [Zithromax] Med 04/24/19 09:00 Ordered 250 mg PO DAILY Budesonide [Pulmicort] Med 04/24/19 09:00 Ordered DOSE mg INH DAILY Cholecalciferol (Vitamin D3) [Vitamin D3] Med 04/24/19 09:00 Ordered DOSE mcg PO DAILY Finasteride [Proscar] Med 04/24/19 09:00 Ordered 5 mg PO DAILY LORazepam [Ativan] Med 04/23/19 21:00 Ordered 1 mg PO BEDTIME Losartan [Cozaar] Med 04/24/19 09:00 Ordered 100 mg PO DAILY Polyethylene Glycol 3350 [MiraLAX] Med 04/23/19 16:26 Ordered 17 gm PO BEDTIME PRN Tamsulosin [Flomax] Med 04/23/19 21:00 Ordered 0.8 mg PO BEDTIME amLODIPine [Norvasc] Med 04/24/19 09:00 Ordered 5 mg PO DAILY atorvaSTATin [Lipitor] Med 04/23/19 21:00 Ordered 20 mg PO BEDTIME lamoTRIgine Med 04/23/19 21:00 Ordered 100 mg PO BID Code Status [Resuscitation Status] Routine Resus Stat 04/23/19 16:29 Ordered Medication Orders Albuterol/Ipratropium (Duoneb 3.0-0.5 Mg/3 Ml) 3 ml NEB Q6HRRT PRN PRN Reason: Shortness of breath, wheezing Amoxicillin/Clavulanate Potassium (Augmentin 875 Mg/125 Mg) 1 tab PO BID [facility] Stop: 04/26/19 09:01 Azithromycin (Zithromax) 250 mg PO DAILY [facility] Stop: 04/24/19 09:01 Budesonide (Pulmicort) mg INH DAILY [facility] Cholecalciferol (Vitamin D3) mcg PO DAILY [facility] Finasteride (Proscar) 5 mg PO DAILY [facility] Lamotrigine (Lamotrigine) 100 mg PO BID [facility] Non-Formulary Medication (Amlodipine [Norvasc]) 5 mg PO DAILY [facility] Non-Formulary Medication (Ascorbic Acid [C-1000]) 1,000 mg PO DAILY [facility] Non-Formulary Medication (Atorvastatin [Lipitor]) 20 mg PO BEDTIME [facility] Non-Formulary Medication (Lorazepam [Ativan]) 1 mg PO BEDTIME [facility] Non-Formulary Medication (Losartan [Cozaar]) 100 mg PO DAILY [facility] Polyethylene Glycol (Miralax) 17 gm PO BEDTIME PRN PRN Reason: Constipation Tamsulosin HCl (Flomax) 0.8 mg PO BEDTIME [facility] Assessment/Plan Comment:: HPI summary: 88yoM with a history notable for COPD (no recent PFTs on file) and chronic nocturnal hypoxia (on oxygen 2.5lpm at home at night) who sustained a ground level fall onto his left side on 04/17/19 for which he was subsequently evaluated and admitted to inpatient status 2 days later for pneumonia and acute kidney injury. Clinical status and labs improved with IVF and antibiotics as well as subsequent prednisone burst, though ongoing oxygen during the day was needed. Blood cultures negative and no complications arose during his acute stay. Significant physical deconditioning noted, for which physical therapy and clinical social worker consultations recommend rehabilitation stay, for which swing bed placement was agreed to. Hospitalization problems and plan: # Physical deconditioning # Recurrent falls - Physical therapy # Acute hypoxic respiratory failure # Chronic nocturnal hypoxia - Titrate oxygen to maintain saturations of 90% or greater during the day and continue oxygen 2.5lpm at night as is baseline # Community acquired pneumonia of the RLL, unknown organism # COPD, with acute exacerbation - Complete antibiotic course with azithromycin 250mg (5 day total) and Augmentin 875/125mg BID (7 day total) - Complete prednisone 40mg (5 day total) - Continue DuoNebs q4h prn shortness of breath/wheezing - Continue Pulmicort # R chest contusion # R knee contusion - Tylenol prn # Constipation - Miralax daily and bisacodyl prn Chronic, stable conditions: # Mild diastolic dysfunction: No evidence of overload. Not on diuretics at baseline. # PVD and hx TIA: ASA allergy, so not on at baseline. # HTN: Controlled. Continue losartan 100mg and amlodipine 5mg. # BPH: Stable. Continue tamsulosin and finasteride. # HLD: Continue atorvastatin. # Seizure disorder: No recent recurrence. Continue lamotrigine. # Insomnia: Stable. Continue lorazepam. # Hx bladder cancer Hospitalization details: # FEN: No IV. Electrolytes normal. Heart healthy diet. # PPX: Ambulation for DVT ppx now that out of inpatient status and pharmacologic DVT ppx not indicated. # Code status: DNR/DNI. # Emergency contact: , Casandra, with whom care was discussed over the phone on 04/24/19. # Disposition: Admit to swingbed for physical deconditioning rehabilitation. Anticipate eventual discharge to home when improved. - Mortality Measure Prognosis:: Good
[2019-04-23] MEDS: lamoTRIgine 100 MG Tab PO SCH (21:38)
[2019-04-23] MEDS: atorvaSTATin 10 MG Tab PO SCH (21:38)
[2019-04-23] MEDS: Amoxicillin/Clavulanate K 875-125 MG Tab PO SCH (21:38)
[2019-04-23] MEDS: Tamsulosin 0.4 MG Cap.ER PO SCH (21:38)
[2019-04-23] MEDS: LORazepam 0.5 MG Tab PO SCH (21:38)
[2019-04-24] MEDS: Cholecalciferol (Vitamin D3) 25 MCG Tab PO SCH (08:31)
[2019-04-24] MEDS: Ascorbic Acid 500 MG Tab PO SCH (08:31)
[2019-04-24] MEDS: Amoxicillin/Clavulanate K 875-125 MG Tab PO SCH ×2 (08:31→21:00)
[2019-04-24] MEDS: lamoTRIgine 100 MG Tab PO SCH ×2 (08:31→21:01)
[2019-04-24] MEDS: Finasteride 5 MG Tab PO SCH (08:31)
[2019-04-24] MEDS: predniSONE 20 MG Tab PO SCH (08:31)
[2019-04-24] MEDS: Acetaminophen 650 MG Tab.ER PO PRN ×2 (08:33→21:00)
[2019-04-24] MEDS: Losartan 50 MG Tab PO SCH (08:36)
[2019-04-24] MEDS: amLODIPine 5 MG Tab PO SCH (08:36)
[2019-04-24] MEDS: Budesonide 0.5 MG/2 ML Neb Susp INH SCH (08:51)
[2019-04-24] MEDS ORDERED: Losartan 50 MG Tab PO SCH (09:00)
[2019-04-24] MEDS ORDERED: Azithromycin 250 MG Tab PO SCH (09:00)
[2019-04-24] MEDS ORDERED: amLODIPine 5 MG Tab PO SCH (09:00)
[2019-04-24] MEDS: atorvaSTATin 10 MG Tab PO SCH (21:00)
[2019-04-24] MEDS: Tamsulosin 0.4 MG Cap.ER PO SCH (21:00)
[2019-04-24] MEDS: LORazepam 0.5 MG Tab PO SCH (21:01)
[2019-04-24] MEDS: Melatonin 3 MG Tab PO PRN (21:01)
[2019-04-25] MEDS: Amoxicillin/Clavulanate K 875-125 MG Tab PO SCH ×2 (08:33→20:50)
[2019-04-25] MEDS: amLODIPine 5 MG Tab PO SCH (08:33)
[2019-04-25] MEDS: predniSONE 20 MG Tab PO SCH (08:33)
[2019-04-25] MEDS: Ascorbic Acid 500 MG Tab PO SCH (08:34)
[2019-04-25] MEDS: Cholecalciferol (Vitamin D3) 25 MCG Tab PO SCH (08:34)
[2019-04-25] MEDS: lamoTRIgine 100 MG Tab PO SCH ×2 (08:34→20:51)
[2019-04-25] MEDS: Finasteride 5 MG Tab PO SCH (08:34)
[2019-04-25] MEDS: Losartan 50 MG Tab PO SCH (08:34)
[2019-04-25] MEDS: Budesonide 0.5 MG/2 ML Neb Susp INH SCH (09:47)
[2019-04-25] MEDS: Acetaminophen 650 MG Tab.ER PO PRN ×2 (09:51→20:58)
[2019-04-25] MEDS: LORazepam 0.5 MG Tab PO SCH (20:50)
[2019-04-25] MEDS: Melatonin 3 MG Tab PO PRN (20:51)
[2019-04-25] MEDS: Tamsulosin 0.4 MG Cap.ER PO SCH (20:51)
[2019-04-25] MEDS: atorvaSTATin 10 MG Tab PO SCH (20:51)
[2019-04-26] MEDS: Bisacodyl 5 MG Tab PO PRN (05:38)
[2019-04-26] MEDS: predniSONE 20 MG Tab PO SCH (08:31)
[2019-04-26] MEDS: Amoxicillin/Clavulanate K 875-125 MG Tab PO SCH (08:32)
[2019-04-26] MEDS: lamoTRIgine 100 MG Tab PO SCH ×2 (08:33→20:16)
[2019-04-26] MEDS: Finasteride 5 MG Tab PO SCH (08:33)
[2019-04-26] MEDS: Ascorbic Acid 500 MG Tab PO SCH (08:33)
[2019-04-26] MEDS: Cholecalciferol (Vitamin D3) 25 MCG Tab PO SCH (08:36)
[2019-04-26] MEDS: Budesonide 0.5 MG/2 ML Neb Susp INH SCH (09:17)
--- NOTE | 2019-04-26 09:20 | PCM.SN ---
- Free Text/Narrative Note: I had seen patient a few weeks ago outpatient clinic and placed him on the following home respiratory medications at would be affordable to him. Home Resp regimen: --ICS in form of Pulmicort Neb BID --TRACY in form of Albuterol Neb low dose (1.25mg) PRN (no duo neb 2/2 dizziness) --LABA in from of Brovana BID, [facility] --Ventolin inhaler PRN outside home.
[2019-04-26] MEDS: amLODIPine 5 MG Tab PO SCH (09:24)
[2019-04-26] MEDS: Losartan 50 MG Tab PO SCH (09:25)
[2019-04-26] MEDS: atorvaSTATin 10 MG Tab PO SCH (20:16)
[2019-04-26] MEDS: LORazepam 0.5 MG Tab PO SCH (20:16)
[2019-04-26] MEDS: Tamsulosin 0.4 MG Cap.ER PO SCH (20:16)
[2019-04-27] MEDS: Finasteride 5 MG Tab PO SCH (08:01)
[2019-04-27] MEDS: Ascorbic Acid 500 MG Tab PO SCH (08:01)
[2019-04-27] MEDS: amLODIPine 5 MG Tab PO SCH (08:01)
[2019-04-27] MEDS: Losartan 50 MG Tab PO SCH (08:01)
[2019-04-27] MEDS: Cholecalciferol (Vitamin D3) 25 MCG Tab PO SCH (08:01)
[2019-04-27] MEDS: lamoTRIgine 100 MG Tab PO SCH ×2 (08:01→20:28)
[2019-04-27] MEDS: Budesonide 0.5 MG/2 ML Neb Susp INH SCH ×2 (08:34→20:29)
[2019-04-27] MEDS ORDERED: Albuterol 0.083% 2.5 MG/3 ML Neb Soln NEB PRN (09:20)
[2019-04-27] MEDS: Acetaminophen 650 MG Tab.ER PO PRN (16:48)
[2019-04-27] MEDS: Arformoterol 15 MCG/2 ML Neb Soln INH SCH (19:19)
[2019-04-27] MEDS: Tamsulosin 0.4 MG Cap.ER PO SCH (20:28)
[2019-04-27] MEDS: LORazepam 0.5 MG Tab PO SCH (20:28)
[2019-04-27] MEDS: atorvaSTATin 10 MG Tab PO SCH (20:28)
[2019-04-28] MEDS: Acetaminophen 650 MG Tab.ER PO PRN (05:42)
[2019-04-28] MEDS: Arformoterol 15 MCG/2 ML Neb Soln INH SCH ×2 (07:50→19:51)
[2019-04-28] MEDS: Budesonide 0.5 MG/2 ML Neb Susp INH SCH ×2 (08:42→20:41)
[2019-04-28] MEDS: Cholecalciferol (Vitamin D3) 25 MCG Tab PO SCH (08:42)
[2019-04-28] MEDS: Finasteride 5 MG Tab PO SCH (08:42)
[2019-04-28] MEDS: Ascorbic Acid 500 MG Tab PO SCH (08:42)
[2019-04-28] MEDS: amLODIPine 5 MG Tab PO SCH (08:42)
[2019-04-28] MEDS: Losartan 50 MG Tab PO SCH (08:43)
[2019-04-28] MEDS: lamoTRIgine 100 MG Tab PO SCH ×2 (08:43→20:40)
[2019-04-28] MEDS: LORazepam 0.5 MG Tab PO SCH (20:39)
[2019-04-28] MEDS: Tamsulosin 0.4 MG Cap.ER PO SCH (20:40)
[2019-04-28] MEDS: atorvaSTATin 10 MG Tab PO SCH (20:41)
[2019-04-29] MEDS: Arformoterol 15 MCG/2 ML Neb Soln INH SCH ×2 (08:22→19:31)
[2019-04-29] MEDS: lamoTRIgine 100 MG Tab PO SCH ×2 (08:22→20:18)
[2019-04-29] MEDS: Ascorbic Acid 500 MG Tab PO SCH (08:22)
[2019-04-29] MEDS: Cholecalciferol (Vitamin D3) 25 MCG Tab PO SCH (08:22)
[2019-04-29] MEDS: Finasteride 5 MG Tab PO SCH (08:22)
[2019-04-29] MEDS: amLODIPine 5 MG Tab PO SCH (08:23)
[2019-04-29] MEDS: Losartan 50 MG Tab PO SCH (08:23)
[2019-04-29] MEDS: Budesonide 0.5 MG/2 ML Neb Susp INH SCH ×2 (08:37→20:18)
[2019-04-29] MEDS: Acetaminophen 650 MG Tab.ER PO PRN (14:42)
[2019-04-29] MEDS: LORazepam 0.5 MG Tab PO SCH (20:18)
[2019-04-29] MEDS: atorvaSTATin 10 MG Tab PO SCH (20:18)
[2019-04-29] MEDS: Tamsulosin 0.4 MG Cap.ER PO SCH (20:18)
[2019-04-30] MEDS: Arformoterol 15 MCG/2 ML Neb Soln INH SCH ×2 (08:48→19:26)
[2019-04-30] MEDS: lamoTRIgine 100 MG Tab PO SCH ×2 (08:52→20:14)
[2019-04-30] MEDS: Finasteride 5 MG Tab PO SCH (08:52)
[2019-04-30] MEDS: Cholecalciferol (Vitamin D3) 25 MCG Tab PO SCH (08:52)
[2019-04-30] MEDS: Ascorbic Acid 500 MG Tab PO SCH (08:52)
[2019-04-30] MEDS: Losartan 50 MG Tab PO SCH (08:55)
[2019-04-30] MEDS: amLODIPine 5 MG Tab PO SCH (08:55)
[2019-04-30] MEDS: Budesonide 0.5 MG/2 ML Neb Susp INH SCH ×2 (08:57→20:14)
[2019-04-30] MEDS: Acetaminophen 650 MG Tab.ER PO PRN ×2 (09:44→18:00)
[2019-04-30] MEDS: LORazepam 0.5 MG Tab PO SCH (20:13)
[2019-04-30] MEDS: atorvaSTATin 10 MG Tab PO SCH (20:14)
[2019-04-30] MEDS: Tamsulosin 0.4 MG Cap.ER PO SCH (20:14)
[2019-05-01] MEDS: Arformoterol 15 MCG/2 ML Neb Soln INH SCH ×2 (07:45→20:34)
[2019-05-01] MEDS: Cholecalciferol (Vitamin D3) 25 MCG Tab PO SCH (08:56)
[2019-05-01] MEDS: lamoTRIgine 100 MG Tab PO SCH ×2 (08:57→20:35)
[2019-05-01] MEDS: Ascorbic Acid 500 MG Tab PO SCH (08:57)
[2019-05-01] MEDS: Finasteride 5 MG Tab PO SCH (08:57)
[2019-05-01] MEDS: amLODIPine 5 MG Tab PO SCH (09:13)
[2019-05-01] MEDS ORDERED: Losartan 50 MG Tab PO ONE (09:14)
[2019-05-01] MEDS: Losartan 50 MG Tab PO SCH (09:16)
[2019-05-01] MEDS: Budesonide 0.5 MG/2 ML Neb Susp INH SCH ×2 (09:56→22:00)
[2019-05-01] MEDS: Bisacodyl 5 MG Tab PO PRN (10:20)
[2019-05-01] MEDS: LORazepam 0.5 MG Tab PO SCH (20:34)
[2019-05-01] MEDS: Tamsulosin 0.4 MG Cap.ER PO SCH (20:35)
[2019-05-01] MEDS: atorvaSTATin 10 MG Tab PO SCH (20:35)
[2019-05-02] MEDS: Arformoterol 15 MCG/2 ML Neb Soln INH SCH (07:30)
[2019-05-02] MEDS: Cholecalciferol (Vitamin D3) 25 MCG Tab PO SCH (08:28)
[2019-05-02] MEDS: lamoTRIgine 100 MG Tab PO SCH (08:28)
[2019-05-02] MEDS: Finasteride 5 MG Tab PO SCH (08:28)
[2019-05-02] MEDS: Ascorbic Acid 500 MG Tab PO SCH (08:28)
[2019-05-02] MEDS: Budesonide 0.5 MG/2 ML Neb Susp INH SCH (08:29)
[2019-05-02 08:37] VITALS: PULSE 65
[2019-05-02] MEDS: amLODIPine 5 MG Tab PO SCH (12:38)
[2019-05-02 12:39] VITALS: BP 115/64
[2019-05-02] MEDS: Losartan 50 MG Tab PO SCH (12:39)
--- NOTE | 2019-05-02 13:10 | PCM.DCSUM1 ---
Discharge Summary - Hospital Course Diagnosis: Stroke: No - Discharge Data Discharge Date: 05/02/19 Discharge Disposition: Home, W Home Health Agency 06 Condition: Fair - Referral to Home Health Date of Face to Face Encounter: 05/02/19 Reason for Homebound Status: Is homebound due to significant oxygen requirement and use of in-home medications through nebulization only. Patient does have potential for rehospitalization related to severe COPD and recent falls along with pneumonia. Will need in home therapy program which include home safety assessment and instruction as he recently fell. He has poor strength and endurance due to severe COPD and recent hospitalization due to deconditioning. There is a severe shortness of breath on ambulation with unsteady gait Primary Care Physician: Magui Marquez MD Skilled Need: Patient does have potential for rehospitalization related to severe COPD and recent falls along with pneumonia. Developed a in home therapy program which include home safety assessment and instruction as he recently fell. He has poor strength and endurance due to severe COPD and recent hospitalization due to deconditioning. There is a severe shortness of breath on ambulation with unsteady gait - Patient Summary/Data Consults: Consultations 04/23/19 16:26 Consult to Case Management/Dining Room Host [CONS] Routine PT Evaluation and Treatment [CONS] Routine - Patient Instructions Diet: Regular Diet as Tolerated Activity: As Tolerated, Cough & Deep Breathe Driving: Do Not Drive Showering/Bathing: May Shower Notify Provider of: Fever Other/Special Instructions: Report any worsening shortness of breath or increasing need of oxygen requirements - Discharge Plan *PRESCRIPTION DRUG MONITORING PROGRAM REVIEWED*: Not Applicable *COPY OF PRESCRIPTION DRUG MONITORING REPORT IN PATIENT CHRISTIE: Not Applicable Prescriptions/Med Rec: Arformoterol [Brovana] 1 puff INH BID #60 banner Home Medications: Home Meds LORazepam [Ativan] 1 mg PO BEDTIME 10/28/13 [History] Losartan [Cozaar] 100 mg PO DAILY 10/28/13 [History] Tamsulosin [Flomax] 0.8 mg PO BEDTIME 10/28/13 [History] amLODIPine [Norvasc] 5 mg PO DAILY 10/28/13 [History] lamoTRIgine [Lamictal] 100 mg PO BID 10/28/13 [History] Ascorbic Acid [C-1000] 1,000 mg PO DAILY 07/25/15 [History] Budesonide [Pulmicort] 1 unit INH DAILY 07/25/15 [History] Cholecalciferol (Vitamin D3) [Vitamin D3] 1 tab PO DAILY 07/25/15 [History] Garlic 1 tab PO DAILY 07/25/15 [History] atorvaSTATin [Lipitor] 20 mg PO BEDTIME #30 tablet 07/29/15 [Rx] Finasteride [Proscar] 5 mg PO DAILY 09/14/16 [History] Albuterol Sulfate [Albuterol Sulfate Hfa] 1 puff INH Q4HR PRN 04/19/19 [History] Albuterol [Proventil Neb Soln] 3 ml INH Q4HR PRN 04/19/19 [History] Nystatin/Triamcinolone Crm [Mycolog Crm] 1 applic TOP BID 04/19/19 [History] Tolnaftate [Tinactin] 1 applic TOP BID 04/19/19 [History] Arformoterol [Brovana] 1 puff INH BID #60 neb 05/02/19 [Rx] Oxygen Therapy Mode: Nasal Cannula Referrals: [facility] [Outside] Lakisha Muñiz, CIVIL LITIGATION ATTORNEY [Nurse Practitioner] - (Next Week or provider of his choice) - Discharge Summary/Plan Comment DC Time >30 min.: Yes Discharge Summary/Plan Comment: Final diagnosis --COPD, severe, stage D --Acute hypoxic respiratory failure, continuous use of oxygen --Physical deconditioning --Community acquired pneumonia of the RLL, resolved --Recurrent falls with R chest and R knee contusion History summary 88yoM with a history notable for COPD (no recent PFTs on file) and chronic nocturnal hypoxia (on oxygen 2.5lpm at home at night) who sustained a ground level fall onto his left side on 04/17/19 for which he was subsequently evaluated and admitted to inpatient status 2 days later for pneumonia and acute kidney injury. Clinical status and labs improved with IVF and antibiotics as well as subsequent prednisone burst, though ongoing oxygen during the day was needed. Blood cultures negative and no complications arose during his acute stay. Significant physical deconditioning noted, for which physical therapy and social worker psychiatric consultations recommend rehabilitation stay, therefore he was placed in swing bed. Swing bed course Went fairly well however he did demonstrate significant oxygen requirements with medication adjustments. He received no IV fluids while in swing bed. He received physical deconditioning rehabilitation however he did have hypoxia while ambulation and working with physical therapy. She has increased oxygen needs from nocturnal to continuous use due to oxygen saturations 87% on room air at rest. Medication changes/adjustments upon discharge Home Resp regimen: --ICS in form of Pulmicort Neb BID --TRACY in form of Albuterol Neb low dose (1.25mg) PRN (no duo neb 2/2 dizziness) --LABA in from of Brovana BID, [employer] --Ventolin inhaler PRN outside home. --Hold amlodipine until follow up --Decrease losartan by 50% to 50 mg daily This is a [id number] encounter for home health services. Patient will be considered homebound due to significant oxygen requirement and use of in-home medications through nebulization. Patient is considered high risk for rehospitalization related to severe COPD and recent falls along with recent pneumonia. Will need in home therapy program which include home safety assessment and instruction as he recently fell. He has poor strength and endurance due to severe COPD and recent hospitalization due to significant deconditioning. There is a severe shortness of breath on ambulation with unsteady gait - General Info Functional Status: Reports: Pain Controlled, Tolerating Diet, Ambulating - Review of Systems General: Reports: Weakness. Denies: Fever HEENT: Reports: No Symptoms Pulmonary: Reports: Shortness of Breath. Denies: Sputum, Hemoptysis, Wheezing Cardiovascular: Reports: Dyspnea on Exertion Gastrointestinal: Reports: No Symptoms Neurological: Reports: No Symptoms - Patient Data Vitals - Most Recent: Last Vital Signs Temp 98.5 F 05/02/19 06:18 Pulse 65 05/02/19 07:30 Resp 20 05/02/19 06:18 BP 115/64 05/02/19 12:39 Pulse Ox 96 05/02/19 09:30 Weight - Most Recent: 141 lb 9 oz I&O - Last 24 hours: Intake & Output 05/01/19 05/02/19 05/02/19 22:59 06:59 14:59 Intake Total 925 100 Output Total 500 200 Balance 425 -100 Med Orders - Current: Current Medications Acetaminophen (Tylenol Arthritis Pain) 650 mg PO Q6H PRN PRN Reason: Pain Last Admin: 04/30/19 18:00 Dose: 650 mg Albuterol (Proventil Neb Soln) 1.25 mg NEB Q6HRRT PRN PRN Reason: Dyspnea Last Admin: 05/01/19 17:51 Dose: 1.25 mg Amlodipine Besylate (Norvasc) 5 mg PO DAILY [facility] Last Admin: 05/02/19 12:38 Dose: 5 mg Arformoterol Tartrate (Brovana) 15 mcg INH BIDRT [facility] Last Admin: 05/02/19 07:30 Dose: 15 mcg Ascorbic Acid (Vitamin C) 1,000 mg PO DAILY [facility] Last Admin: 05/02/19 08:28 Dose: 1,000 mg Atorvastatin Calcium (Lipitor) 20 mg PO BEDTIME [facility] Last Admin: 05/01/19 20:35 Dose: 20 mg Bisacodyl (Dulcolax) 5 mg PO DAILY PRN PRN Reason: Congestion Last Admin: 05/01/19 10:20 Dose: 5 mg Budesonide (Pulmicort) 0.5 mg INH BID [facility] Last Admin: 05/02/19 08:29 Dose: 0.5 mg Cholecalciferol (Vitamin D3) 25 mcg PO DAILY [facility] Last Admin: 05/02/19 08:28 Dose: 25 mcg Finasteride (Proscar) 5 mg PO DAILY [facility] Last Admin: 05/02/19 08:28 Dose: 5 mg Lamotrigine (Lamotrigine) 100 mg PO BID [facility] Last Admin: 05/02/19 08:28 Dose: 100 mg Lorazepam (Ativan) 1 mg PO BEDTIME [facility] Last Admin: 05/01/19 20:34 Dose: 1 mg Losartan Potassium (Cozaar) 100 mg PO DAILY [facility] Last Admin: 05/02/19 12:39 Dose: 100 mg Melatonin (Melatonin) 3 mg PO BEDTIME PRN PRN Reason: Insomnia Last Admin: 04/25/19 20:51 Dose: 3 mg Polyethylene Glycol (Miralax) 17 gm PO BEDTIME PRN PRN Reason: Constipation Tamsulosin HCl (Flomax) 0.8 mg PO BEDTIME [facility] Last Admin: 05/01/19 20:35 Dose: 0.8 mg Discontinued Medications Albuterol/Ipratropium (Duoneb 3.0-0.5 Mg/3 Ml) 3 ml NEB Q6HRRT PRN PRN Reason: Shortness of breath, wheezing Last Admin: 04/25/19 14:55 Dose: 3 ml Amlodipine Besylate (Norvasc) 5 mg PO DAILY [facility] Amoxicillin/Clavulanate Potassium (Augmentin 875 Mg/125 Mg) 1 tab PO BID [facility] Stop: 04/26/19 09:01 Last Admin: 04/26/19 08:32 Dose: 1 tab Azithromycin (Zithromax) 250 mg PO DAILY [facility] Stop: 04/24/19 09:01 Last Admin: 04/24/19 08:31 Dose: 250 mg Budesonide (Pulmicort) 0.5 mg INH DAILY [facility] Last Admin: 04/27/19 08:34 Dose: 0.5 mg Losartan Potassium (Cozaar) 100 mg PO DAILY [facility] Losartan Potassium (Cozaar) 50 mg PO ONETIME ONE Stop: 05/01/19 09:15 Last Admin: 05/01/19 09:55 Dose: 50 mg Prednisone (Prednisone) 40 mg PO WITHBREAKFAST [facility] Stop: 04/26/19 09:00 Last Admin: 04/26/19 08:31 Dose: 40 mg - Exam Quality Assessment: Reports: Supplemental Oxygen General: Reports: Alert, Oriented, No Acute Distress Lungs: Reports: Decreased Breath Sounds. Denies: Crackles, Rales, Rhonchi Cardiovascular: Denies: Tachycardia Rectal (Males) Exam: Deferred Back Exam: Denies: CVA Tenderness (L), CVA Tenderness (R) Psy/Mental Status: Reports: Alert
== END 2019-05-02 14:00 | disposition home health service (06) | DRG 947 ==
LOC: KA.MS 16:25
PROVIDERS: ADMIT Family Medicine; ATTEND Family Medicine
DX: R53.83 Other fatigue (principal); J96.01 Acute respiratory failure with hypoxia; J18.1 Lobar pneumonia, unspecified organism; J44.0 Chronic obstructive pulmonary disease with (acute) lower respiratory infection; S80.01XD Contusion of right knee, subsequent encounter; S20.211D Contusion of right front wall of thorax, subsequent encounter; Z66 Do not resuscitate; E78.00 Pure hypercholesterolemia, unspecified; K59.09 Other constipation; K21.9 Gastro-esophageal reflux disease without esophagitis; I10 Essential (primary) hypertension; N40.0 Benign prostatic hyperplasia without lower urinary tract symptoms; G40.909 Epilepsy, unspecified, not intractable, without status epilepticus; G47.00 Insomnia, unspecified; Z86.73 Personal history of transient ischemic attack (TIA), and cerebral infarction without residual deficits; Z79.899 Other long term (current) drug therapy; Z98.49 Cataract extraction status, unspecified eye; Z85.3 Personal history of malignant neoplasm of breast
CPT/HCPCS: 94640; 97110-GP; 97162-GP; A9270-GY; J7613-GY; J7620-GY

== ENCOUNTER 2019-05-24 08:22 | Inpatient (IN) | payer MEDICARE, OTHER ==
[2019-05-24] MEDS ORDERED: guaiFENesin/Dextromethorphan 100-10 MG/5 ML Soln 5 ML Cup PO SCH (11:00)
[2019-05-24] MEDS ORDERED: cefTRIAXone 1 GM Vial IVPUSH SCH (11:00)
[2019-05-24] MEDS ORDERED: methylPREDNISolone Sodium Succinate 125 MG/2 ML SDV IVPUSH SCH (11:00)
[2019-05-24] MEDS ORDERED: Azithromycin 500 MG in Sodium Chloride 0.9% 250 ML IV SCH (11:00)
[2019-05-24 11:18] LABS: ANION GAP 11.8 mmol/L (5-15); CHLORIDE,CL 99 mmol/L (98-115); SODIUM,NA 137 mmol/L (136-145)
[2019-05-24] MEDS: Albuterol/Ipratropium 3.0-0.5 MG/3 ML Neb Soln NEB SCH ×2 (11:18→17:05)
[2019-05-24] MEDS ORDERED: guaiFENesin/Dextromethorphan 100-10 MG/5 ML Soln 5 ML Cup PO PRN (11:19)
[2019-05-24] MEDS ORDERED: Magnesium Hydroxide 400 MG/5 ML Susp 30 ML Cup PO PRN (11:19)
[2019-05-24] MEDS ORDERED: Acetaminophen 325 MG Tab PO PRN (11:19)
[2019-05-24] MEDS ORDERED: LORazepam 0.5 MG Tab PO PRN (11:45)
[2019-05-24 11:47] LABS: O2 DELIVERY DEVICE NASAL CANNULA; PCO2 ARTERIAL 46 mmHG (35-45)
[2019-05-24 11:48] LABS: BASE EXCESS ARTERIAL 5 mmol/L (-2-3); BICARBONATE,ARTERIAL 29.6 mmol/L (22-26); O2 SATURATION ARTERIAL 95 % (95-98); PO2 ARTERIAL 75 mmHG (80-105)
[2019-05-24 11:50] LABS: O2 FLOW RATE 3 L/min
[2019-05-24] MEDS: predniSONE 20 MG Tab PO SCH (12:17)
--- NOTE | 2019-05-24 12:48 | HP ---
HISTORY OF PRESENT ILLNESS: This is an 88-year-old gentleman who was living at home with his , but he is having some increased shortness of breath and some confusion. He was put in the assisted for a day. Nursing staff at the assisted had stated the patient was very confused and short of breath, so a CT of the chest was ordered, which showed very diffuse scattered opacification throughout his lung baltazar, so the patient was admitted at that time with possible pneumonia, exacerbation of COPD. 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 MEDICATIONS: That the patient does take at home; he takes nystatin cream twice a day as needed, milk of magnesia as needed, Tylenol as needed, albuterol inhalers as needed, Ativan as needed, losartan 100 mg daily, vitamin D3 of 1000 units daily, Proscar 5 mg daily, Pulmicort nebulizer twice daily, Lamictal 100 mg twice daily, Atorvastatin 20 mg daily, amlodipine 5 mg daily, Flomax 0.8 mg daily, one garlic tab daily, and vitamin C 1000 mg daily. ALLERGIES: The patient does have an allergy to aspirin, atenolol, and questioning beta sudheer's dizziness. SOCIAL/PERSONAL HISTORY: The patient is retired. He lives at home in [place] with his . Denies any alcohol or tobacco use. REVIEW OF SYSTEMS: CONSTITUTIONAL: No weight loss. No fever. No chills. No night sweats. Appetite is good. No fatigue. EYES: No recent visual changes. ENT: No sinus congestion or hoarseness. CARDIOVASCULAR: No chest pain or palpitations. RESPIRATORY: No cough. The patient does state he feels a little short of breath today. GI: No vomiting, diarrhea or melena. : No dysuria or hematuria. MUSCULOSKELETAL: No new bone pain or joint swelling. INTEGUMENTARY: No rash or pruritus. NEUROLOGIC/PSYCHIATRIC: No recent headache or focal weakness. No depressive symptoms. ENDOCRINE: No heat or cold intolerances or polydipsia. HEMATOLOGIC/LYMPHATIC: No excessive bruising or lymph node swelling. ALLERGIC/IMMUNOLOGIC: No hives or recurrent infections. PHYSICAL EXAMINATION: GENERAL: This is an elderly white gentleman, in no acute distress. VITAL SIGNS: His weight is 189 pounds. He is 5 feet 9 inches. Temperature is 98.5, pulse is 72, blood pressure 117/58, respiratory rate 24, oxygen saturation on 3 L nasal cannula. Dropped down about 84% when he is up to the bathroom, it does return to the mid 90s upon resting. HEENT: Head is normocephalic. EOMs are intact. Pupils are equal, round, and reactive to light and accommodation. Bilateral tympanic membranes are intact. Nose is clear. No pharyngeal erythema noted. NECK: Supple. No JVD. Trachea is midline. LUNGS: Lung sounds are very coarse throughout entire lung baltazar. Diminished at bilateral bases. CARDIAC: Regular rate and rhythm. No murmurs identified. ABDOMEN: Soft, nontender, nondistended. Bowel sounds present x4. EXTREMITIES: No joint effusions noted. Full range of motion. NEUROLOGIC: Grossly intact. The patient is alert and orientated, answers questions easily. DIAGNOSTIC: The patient's lab work that was obtained yesterday. Basic metabolic panel is unremarkable. CBC showed a white count within normal range at 6.6, hemoglobin 11.9. The patient's CT of the chest, the impression does read advanced changes of COPD with scattered areas of dense parenchymal opacifications throughout both lungs, associated bronchiolectasis and scattered calcification. Appearance is somewhat nonspecific and possible sequela of chronic interstitial lung disease. Differential diagnosis includes other inflammatory conditions such as sarcoidosis. If there are signs of acute infection, superimposed pneumonia is possible, but would be radiographically indistinguishable from chronic findings. Findings were seen on CT scan from 2010, however, have markedly progressed since that time. Small bilateral pleural effusions demonstrate localization. Small effusions were seen in 2011. However, effusions on today's exam were slightly increased in size. IMPRESSION/PLAN: 1. Exacerbation of chronic obstructive pulmonary disease. Plan: We will place the patient on continuous O2 saturation monitor. We will keep him on oxygen to keep his O2 sats greater than 90%. I am going to give him prednisone today 40 mg right away. We will do that daily. He also can have some Robitussin right now for cough that is productive. He can have Robitussin DM every 6 hours as needed. I am going to start the patient on an incentive spirometer every 2 hours while awake to help with trying to cough up some of the phlegm. I am going to obtain a sputum culture. We will continue with the patient's Pulmicort and Brovana nebulizers twice a day as this ordered. I am also going to place the patient on DuoNeb every [address] scan report. I am going to obtain ABGs to see what the patient's pCO2 is today. This may be a cause of his recent confusion. 2. Recent confusion. Plan: I am also going to obtain urinalysis here upon admission and the ABGs to find sources of confusion. We still may consider head CT if needed. 3. History of hypertension. Plan: Continue with amlodipine 5 mg daily along with losartan 100 mg daily. The patient's blood pressure here today is well controlled. 4. History of hyperlipidemia. Plan: Continue with Lipitor 20 mg daily. 5. History of benign prostatic hypertrophy. Plan: Continue with Flomax 0.8 mg daily along with Proscar 5 mg daily. Monitor for any urinary retention symptoms. 6. Mood disorder. Plan: We will continue with Lamictal 100 mg twice a day. He may have Ativan as needed at bedtime. OVERALL PLAN: We will see how patient does with the dose of prednisone and DuoNebs. We will monitor his oxygen saturations closely and we will obtain ABGs as soon as we can. /[id number]/MODL MTDD
[2019-05-24] MEDS: Budesonide 0.5 MG/2 ML Neb Susp INH SCH (20:40)
[2019-05-24] MEDS: lamoTRIgine 100 MG Tab PO SCH (20:41)
[2019-05-24] MEDS ORDERED: Tamsulosin 0.4 MG Cap.ER PO SCH (21:00)
[2019-05-24] MEDS ORDERED: atorvaSTATin 10 MG Tab PO SCH (21:00)
[2019-05-24] MEDS: Nystatin Crm 15 GM Tube TOP SCH (21:09)
[2019-05-25] MEDS: Albuterol/Ipratropium 3.0-0.5 MG/3 ML Neb Soln NEB SCH ×3 (00:18→10:49)
[2019-05-25] MEDS: Budesonide 0.5 MG/2 ML Neb Susp INH SCH (07:24)
[2019-05-25] MEDS ORDERED: predniSONE 20 MG Tab PO SCH (08:00)
[2019-05-25] MEDS: predniSONE 20 MG Tab PO SCH (08:05)
[2019-05-25] MEDS: lamoTRIgine 100 MG Tab PO SCH (08:06)
[2019-05-25 08:07] LABS: CHLORIDE,CL 101 mmol/L (98-115); SODIUM,NA 137 mmol/L (136-145)
[2019-05-25 08:08] VITALS: BP 133/62
[2019-05-25 08:22] VITALS: PULSE 72
[2019-05-25] MEDS ORDERED: GARLIC PO SCH (09:00)
[2019-05-25] MEDS ORDERED: Ascorbic Acid 500 MG Tab PO SCH (09:00)
[2019-05-25] MEDS ORDERED: Losartan 50 MG Tab PO SCH (09:00)
[2019-05-25] MEDS ORDERED: Cholecalciferol (Vitamin D3) 25 MCG Tab PO SCH (09:00)
[2019-05-25] MEDS ORDERED: amLODIPine 5 MG Tab PO SCH (09:00)
[2019-05-25] MEDS ORDERED: Finasteride 5 MG Tab PO SCH (09:00)
[2019-05-25] MEDS: Nystatin Crm 15 GM Tube TOP SCH (09:54)
--- NOTE | 2019-05-26 10:07 | PCM.DCSUM1 ---
Discharge Summary - Hospital Course Diagnosis: Stroke: No - Discharge Data Discharge Date: 05/25/19 Discharge Disposition: DC/Tfer to SNF 03 Condition: Fair - Referral to Home Health Primary Care Physician: Latoya Muñiz NP - Patient Summary/Data Consults: Consultations 05/24/19 11:14 Consult to Case Management/Perinatology Physician [CONS] Routine - Patient Instructions Diet: Usual Diet as Tolerated Activity: As Tolerated Driving: Do Not Drive Showering/Bathing: May Shower Notify Provider of: Fever Other/Special Instructions: Report any worsening shortness of breath or confustion below patient baseline - Discharge Plan *PRESCRIPTION DRUG MONITORING PROGRAM REVIEWED*: Not Applicable *COPY OF PRESCRIPTION DRUG MONITORING REPORT IN PATIENT CHRISTIE: Not Applicable Home Medications: Home Meds LORazepam [Ativan] 1 mg PO BEDTIME PRN 10/28/13 [History] Losartan [Cozaar] 100 mg PO DAILY 10/28/13 [History] Tamsulosin [Flomax] 0.8 mg PO BEDTIME 10/28/13 [History] amLODIPine [Norvasc] 5 mg PO DAILY 10/28/13 [History] lamoTRIgine [Lamictal] 100 mg PO BID 10/28/13 [History] Ascorbic Acid [C-1000] 1,000 mg PO DAILY 07/25/15 [History] Budesonide [Pulmicort] 1 unit INH BID 07/25/15 [History] Cholecalciferol (Vitamin D3) [Vitamin D3] 1,000 unit PO DAILY 07/25/15 [History] atorvaSTATin [Lipitor] 20 mg PO BEDTIME #30 tablet 07/29/15 [Rx] Finasteride [Proscar] 5 mg PO DAILY 09/14/16 [History] Albuterol Sulfate [Albuterol Sulfate Hfa] 1 puff INH QID PRN 04/19/19 [History] Albuterol [Proventil Neb Soln] 1 puff INH Q4HR PRN 04/19/19 [History] Acetaminophen [Tylenol] 650 mg PO Q4H PRN 05/24/19 [History] Magnesium Hydroxide [Milk of Magnesia] 30 ml PO DAILY PRN 05/24/19 [History] Nystatin [Nystatin Crm] 1 applic TOP BID 05/24/19 [History] - Discharge Summary/Plan Comment DC Time >30 min.: Yes Discharge Summary/Plan Comment: Final diagnosis COPD exacerbation, mild, History summary 88-year-old gentleman was noted to have some increased shortness of breath and some confusion and is a resident of a local long-term. Nursing staff noted patient was seen more confused more shortness of breath thereby prompting a CT of the chest which demonstrated diffuse scattered opacification throughout his lung baltazar he was admitted at the time with suspected pneumonia and exacerbation of his COPD. He was given duo nebulizers Hospital course Quite uneventful, he had very mild exacerbation of his COPD and his continue oxygen saturation saturations were monitored. He did receive 40 mg prednisone burst along with some Robitussin for his productive cough. He was given pulmonary toileting every 2 hours with some mucus production. Sputum culture was obtained and pending upon discharge. He was given duo nebulizers and his long-acting albuterol was held. ABGs 7.41 pH, PCO2 46, PO2 75, base excess high at 31. Electrolytes were monitored and were normal, UA was obtained and it was normal. Blood cultures demonstrated no growth. Procalcitonin was well below worrisome baseline. He had no confusion while in the hospital, had normal neurological PE and no acute worrisome focal deficit. Medication changes/adjustments upon discharge --ICS in form of Pulmicort Neb BID --TRACY in form of Albuterol Neb low dose (1.25mg) PRN (no duo neb 2/2 dizziness) --LABA in from of Brovana BID, --Ventolin inhaler PRN Disposition Patient was transferred back to long-term care. He will see rounding provider. - General Info Functional Status: Reports: Pain Controlled, Tolerating Diet - Review of Systems General: Reports: No Symptoms Pulmonary: Denies: Sputum Gastrointestinal: Reports: No Symptoms Genitourinary: Reports: No Symptoms Neurological: Denies: Confusion Psychiatric: Denies: Confusion - Patient Data Vitals - Most Recent: Last Vital Signs Temp 97.1 F 05/25/19 06:12 Pulse 72 05/25/19 07:24 Resp 18 05/25/19 06:12 BP 133/62 05/25/19 08:05 Pulse Ox 94 L 05/25/19 08:09 Weight - Most Recent: 136 lb 3.2 oz Lab Results - Last 24 hrs: Laboratory Results - last 24 hr 05/25/19 Range/Units 07:16 Procalcitonin <0.05 (<0.10) ng/mL MAGDALENO Results - Last 24 hrs: Microbiology 05/24/19 11:24 Aerobic Blood Culture - Preliminary Blood NO GROWTH AFTER 1 DAY Anaerobic Blood Culture - Preliminary NO GROWTH AFTER 1 DAY 05/24/19 10:35 Aerobic Blood Culture - Preliminary Blood NO GROWTH AFTER 1 DAY Anaerobic Blood Culture - Preliminary NO GROWTH AFTER 1 DAY Med Orders - Current: Current Medications Discontinued Medications Acetaminophen (Tylenol) 650 mg PO Q4H PRN PRN Reason: Pain Last Admin: 05/25/19 08:06 Dose: 650 mg Albuterol/Ipratropium (Duoneb 3.0-0.5 Mg/3 Ml) 3 ml NEB Q6HRRT [facility] Last Admin: 05/25/19 10:49 Dose: Not Given Amlodipine Besylate (Norvasc) 5 mg PO DAILY [facility] Last Admin: 05/25/19 08:05 Dose: 5 mg Ascorbic Acid (Vitamin C) 1,000 mg PO DAILY [facility] Last Admin: 05/25/19 08:05 Dose: 1,000 mg Atorvastatin Calcium (Lipitor) 20 mg PO BEDTIME [facility] Last Admin: 05/24/19 20:41 Dose: 20 mg Budesonide (Pulmicort) 0.5 mg INH BIDRT [facility] Last Admin: 05/25/19 07:24 Dose: 0.5 mg Ceftriaxone Sodium (Rocephin) 1 gm IVPUSH Q24H [facility] Last Admin: 05/24/19 12:35 Dose: Not Given Cholecalciferol (Vitamin D3) 25 mcg PO DAILY [facility] Last Admin: 05/25/19 08:05 Dose: 25 mcg Finasteride (Proscar) 5 mg PO DAILY [facility] Last Admin: 05/25/19 08:06 Dose: 5 mg Guaifenesin/Phenylephrine HCl (Robitussin Dm) 10 ml PO Q6H [facility] Last Admin: 05/24/19 12:35 Dose: Not Given Guaifenesin/Phenylephrine HCl (Robitussin Dm) 10 ml PO Q6H PRN PRN Reason: Cough Azithromycin 500 mg/ Sodium (Chloride) 250 mls @ 250 mls/hr IV Q24H [facility] Last Admin: 05/24/19 12:36 Dose: Not Given Lamotrigine (Lamotrigine) 100 mg PO BID [facility] Last Admin: 05/25/19 08:06 Dose: 100 mg Lorazepam (Ativan) 1 mg PO BEDTIME PRN PRN Reason: INSOMNIA Losartan Potassium (Cozaar) 100 mg PO DAILY [facility] Last Admin: 05/25/19 08:05 Dose: 100 mg Magnesium Hydroxide (Milk Of Magnesia) 30 ml PO DAILY PRN PRN Reason: Constipation Methylprednisolone Sodium Succinate (Solu-Medrol) 40 mg IVPUSH Q8H [facility] Last Admin: 05/24/19 12:36 Dose: Not Given Non-Formulary Medication (Garlic [Garlic]) 1 tab PO DAILY [facility] Nystatin (Nystatin Crm) 0 gm TOP BID [facility] Last Admin: 05/25/19 09:54 Dose: 1 applic Prednisone (Prednisone) 40 mg PO WITHBREAKFAST [facility] Prednisone (Prednisone) 40 mg PO WITHBREAKFAST [facility] Last Admin: 05/25/19 08:05 Dose: 40 mg Tamsulosin HCl (Flomax) 0.8 mg PO BEDTIME [facility] Last Admin: 05/24/19 20:41 Dose: 0.8 mg - Exam General: Reports: Alert, Oriented, Cooperative Neck: Reports: No JVD Lungs: Reports: Decreased Breath Sounds GI/Abdominal Exam: Soft Extremities: No Pedal Edema Psy/Mental Status: Reports: Alert, Normal Affect, Normal Mood
== END 2019-05-25 11:45 | DRG 192 ==
LOC: KA.MS 10:12 → OBSVTOIN 10:51
PROVIDERS: ADMIT Nurse Practitioner Family; ATTEND Family Medicine
DX: R06.02 Shortness of breath (principal); R41.0 Disorientation, unspecified; J44.1 Chronic obstructive pulmonary disease with (acute) exacerbation; N40.0 Benign prostatic hyperplasia without lower urinary tract symptoms; F39 Unspecified mood [affective] disorder; E78.5 Hyperlipidemia, unspecified; I10 Essential (primary) hypertension; Z99.81 Dependence on supplemental oxygen; Z88.6 Allergy status to analgesic agent; Z88.8 Allergy status to other drugs, medicaments and biological substances; Z79.899 Other long term (current) drug therapy
CPT/HCPCS: 36415; 36600; 80048; 80053; 81003; 82803; 84145; 85025; 87040; 87077; 94640; A9270-GY; J7620-GY

== ENCOUNTER 2019-06-09 17:17 | Inpatient (IN) | payer MEDICARE, OTHER ==
[2019-06-09] MEDS ORDERED: Sodium Chloride 0.9% 1,000 ML IV ONE (17:24)
[2019-06-09] MEDS ORDERED: Sodium Chloride 0.9% 10 ML Syringe FLUSH PRN (17:24)
[2019-06-09] MEDS ORDERED: Acetaminophen 325 MG Tab PO ONE (17:25)
--- NOTE | 2019-06-09 17:36 | EDM.PDOC ---
ED HPI GENERAL MEDICAL PROBLEM - General Chief Complaint: General Stated Complaint: HIGH FEVER, LOW SATS Time Seen by Provider: 06/09/19 17:24 Source of Information: Reports: Patient, EMS, EMS Notes Reviewed History Limitations: Reports: No Limitations - History of Present Illness INITIAL COMMENTS - FREE TEXT/NARRATIVE: Patient is an 88-year-old gentleman who presents via EMS from [facility] with a complaint of upper respiratory symptoms. Partial report given to ER nurse by nursing facility. Patient was said to have been found to have a high fever and low sats and so they called 911. Upon presentation, patient had a temperature of 101.7, and oxygen saturation of 90% on partial nonrebreather. Patient answers questions appropriately and appears in no distress. Patient states he started feeling poorly yesterday. Complaining of being weak, warm and cold, and having a cough. Denies chest pain, abdominal pain, headache, or bowel changes. Onset: Unknown/Unsure Location: Reports: Chest Improves with: Reports: None Worsens with: Reports: None Associated Symptoms: Reports: Cough, Fever/Chills, Shortness of Breath, Weakness - Related Data Allergies Allergy/AdvReac Type Severity Reaction Status Date / Time aspirin Allergy Other Verified 06/09/19 17:26 atenolol Allergy Syncope Verified 06/09/19 17:26 Beta-Blockers Allergy Dizziness Verified 06/09/19 17:26 (Beta-Adrenergic Bloc Home Meds: Home Meds LORazepam [Ativan] 1 mg PO BEDTIME PRN 10/28/13 [History] Losartan [Cozaar] 100 mg PO DAILY 10/28/13 [History] Tamsulosin [Flomax] 0.8 mg PO BEDTIME 10/28/13 [History] amLODIPine [Norvasc] 5 mg PO DAILY 10/28/13 [History] lamoTRIgine [Lamictal] 100 mg PO BID 10/28/13 [History] Ascorbic Acid [C-1000] 1,000 mg PO DAILY 07/25/15 [History] Budesonide [Pulmicort] 1 unit INH BID 07/25/15 [History] Cholecalciferol (Vitamin D3) [Vitamin D3] 1,000 unit PO DAILY 07/25/15 [History] atorvaSTATin [Lipitor] 20 mg PO BEDTIME #30 tablet 07/29/15 [Rx] Finasteride [Proscar] 5 mg PO DAILY 09/14/16 [History] Albuterol Sulfate [Albuterol Sulfate Hfa] 1 puff INH QID PRN 04/19/19 [History] Albuterol [Proventil Neb Soln] 1 puff INH Q4HR PRN 04/19/19 [History] Acetaminophen [Tylenol] 650 mg PO Q4H PRN 05/24/19 [History] Magnesium Hydroxide [Milk of Magnesia] 30 ml PO DAILY PRN 05/24/19 [History] Nystatin [Nystatin Crm] 1 applic TOP BID 05/24/19 [History] guaiFENesin [Mucinex] 1 tab PO BID 06/09/19 [History] Past Medical History HEENT History: Reports: Cataract, Hard of Hearing, Impaired Vision Cardiovascular History: Reports: High Cholesterol, Hypertension Respiratory History: Reports: Asthma, COPD, Pneumonia, Recurrent Gastrointestinal History: Reports: Chronic Constipation, GERD Genitourinary History: Reports: BPH Musculoskeletal History: Reports: Back Pain, Chronic Neurological History: Reports: CVA Endocrine/Metabolic History: Reports: None Oncologic (Cancer) History: Reports: Bladder - Infectious Disease History Infectious Disease History: Reports: Chicken Pox, Measles, Mumps, Rubella, Other (See Below) Other Infectious Disease History: Polio at age 5. - Past Surgical History HEENT Surgical History: Reports: Cataract Surgery, Tonsillectomy Cardiovascular Surgical History: Reports: Carotid Endarterectomy Male Surgical History: Reports: Cystectomy Endocrine Surgical History: Reports: None Social & Family History - Family History Family Medical History: Noncontributory Cardiac: Reports: Hypertension - Caffeine Use Caffeine Use: Reports: Coffee ED ROS GENERAL - Review of Systems Review Of Systems: Comprehensive ROS is negative, except as noted in HPI. Constitutional: Reports: Fever, Weakness HEENT: Reports: No Symptoms Respiratory: Reports: Shortness of Breath, Wheezing, Cough, Sputum Cardiovascular: Reports: No Symptoms. Denies: Chest Pain Endocrine: Reports: No Symptoms GI/Abdominal: Reports: No Symptoms : Reports: No Symptoms Musculoskeletal: Reports: No Symptoms Skin: Reports: No Symptoms Neurological: Reports: No Symptoms Psychiatric: Reports: No Symptoms Hematologic/Lymphatic: Reports: No Symptoms Immunologic: Reports: No Symptoms ED EXAM, GENERAL - Physical Exam Exam: See Below Exam Limited By: No Limitations General Appearance: Alert, WD/WN, No Apparent Distress, Cachetic Eye Exam: Bilateral Eye: Normal Inspection Nose: Normal Inspection, Normal Mucosa Throat/Mouth: Normal Inspection, Normal Oropharynx, No Airway Compromise Head: Atraumatic, Normocephalic Neck: Normal Inspection, Supple, Non-Tender Respiratory/Chest: No Respiratory Distress, Rales (Basilar), Wheezing (Apical expiratory) Cardiovascular: Normal Peripheral Pulses, No Murmur, Tachycardia GI/Abdominal: Normal Bowel Sounds, Soft, Non-Tender Back Exam: Normal Inspection. No: CVA Tenderness (L), CVA Tenderness (R) Extremities: Normal Inspection, No Pedal Edema Neurological: Alert, Oriented, Normal Cognition Psychiatric: Normal Affect, Normal Mood Skin Exam: Warm, Dry, Intact, Normal Color, No Rash Lymphatic: No Adenopathy Course - Vital Signs Last Recorded V/S: Last Vital Signs Temp 101.8 F H 06/09/19 18:00 Pulse 75 06/09/19 17:55 Resp 25 H 06/09/19 17:55 BP 111/37 L 06/09/19 17:55 Pulse Ox 95 06/09/19 17:55 - Orders/Labs/Meds Orders: Active Orders 24 hr Category Date Time Status Patient Status [ADT] Routine ADT 06/09/19 18:28 Ordered Oxygen Therapy [RC] PRN Care 06/09/19 18:28 Ordered Peripheral IV Care [RC] . DIRECTED Care 06/09/19 17:26 Ordered VTE/DVT Education [RC] PER UNIT ROUTINE Care 06/09/19 18:28 Ordered Vital Signs [RC] Q4H Care 06/09/19 18:28 Ordered Chest 2V [CR] Stat Exams 06/09/19 17:24 Ordered CULTURE BLOOD [BC] Stat Lab 06/09/19 17:24 Ordered CULTURE BLOOD [BC] Stat Lab 06/09/19 17:24 Ordered Azithromycin [Zithromax] 500 mg Med 06/09/19 18:27 Ordered Sodium Chloride 0.9% [Normal Saline] 250 ml IV ONETIME Sodium Chloride 0.9% [Saline Flush] Med 06/09/19 17:24 Ordered 10 ml FLUSH Q8HR PRN Blood Culture x2 Reflex Set [OM.PC] Stat Oth 06/09/19 17:24 Ordered Peripheral IV Insertion Adult [OM.PC] Routine Oth 06/09/19 17:26 Ordered Saline Lock Insert [OM.PC] Stat Oth 06/09/19 17:24 Ordered Severe Sepsis Onset Time [OM.PC] Stat Oth 06/09/19 17:24 Ordered Resuscitation Status Routine Resus Stat 06/09/19 18:27 Ordered Medication Orders Azithromycin 500 mg/ Sodium (Chloride) 250 mls @ 250 mls/hr IV ONETIME ONE Stop: 06/09/19 19:26 Sodium Chloride (Saline Flush) 10 ml FLUSH Q8HR PRN PRN Reason: keep vein open Last Admin: 06/09/19 17:31 Dose: 10 ml Labs: Laboratory Tests 06/09/19 06/09/19 06/09/19 Range/Units 17:30 17:30 17:30 WBC 13.08 H (5.00-10.00) 10^3/uL RBC 3.69 L (4.50-6.00) 10^6/uL Hgb 12.1 L D (13.0-17.0) g/dL Hct 35.6 L (40.0-52.0) % MCV 96.5 H (82.0-92.0) fL MCH 32.8 H (27.0-31.0) pg MCHC 34.0 (32.0-36.0) g/dL RDW 13.3 (11.5-14.5) % Plt Count 219 (150-400) 10^3/uL MPV 9.3 (7.4-10.4) fL Add Manual Diff Yes Neutrophils % (Manual) 94 H (50-70) % Band Neutrophils % 2 L (4-12) % Lymphocytes % (Manual) 4 L (20-40) % Absolute Neutrophils 12.30 Band Neutrophils # 0.26 Lymphocytes # (Manual) 0.52 Sodium 134 L (136-145) mmol/L Potassium 4.9 (3.3-5.3) mmol/L Chloride 97 L (98-115) mmol/L Carbon Dioxide 31.1 (21.0-32.0) mmol/L Anion Gap 10.8 (5-15) mmol/L BUN 17 (6-25) mg/dL Creatinine 0.99 (0.51-1.17) mg/dL Est Cr Clr Drug Dosing TNP Estimated GFR (MDRD) > 60 mL/min Glucose 106 H (75 - 99) mg/dL Lactic Acid 1.4 (0.4-2.0) mmol/L Calcium 8.2 L (8.7-10.3) mg/dL Total Bilirubin 0.4 (0.2-1.0) mg/dL AST 13 L (15-37) U/L ALT 13 (12-78) U/L Alkaline Phosphatase 80 (46-116) IU/L Total Protein 6.5 (6.4-8.2) g/dL Albumin 3.06 (3.00-4.80) g/dL Specimen Type Urine Color (YELLOW) Urine Appearance (CLEAR) Urine pH (5.0-9.0) Ur Specific Justice (1.005-1.030) Urine Protein (NEGATIVE) mg/dL Urine Glucose (UA) (NEGATIVE) mg/dL Urine Ketones (NEGATIVE) mg/dL Urine Occult Blood (NEGATIVE) Urine Nitrite (NEGATIVE) Urine Bilirubin (NEGATIVE) Urine Urobilinogen (0.2-1.0) E.U./dL Ur Leukocyte Esterase (NEGATIVE) Urine RBC (0-5) /HPF Urine WBC (0-5) /HPF Ur Epithelial Cells /LPF Urine Bacteria (NONE TO FEW) /HPF Hyaline Casts (NEGATIVE) /LPF 06/09/19 Range/Units 17:40 WBC (5.00-10.00) 10^3/uL RBC (4.50-6.00) 10^6/uL Hgb (13.0-17.0) g/dL Hct (40.0-52.0) % MCV (82.0-92.0) fL MCH (27.0-31.0) pg MCHC (32.0-36.0) g/dL RDW (11.5-14.5) % Plt Count (150-400) 10^3/uL MPV (7.4-10.4) fL Add Manual Diff Neutrophils % (Manual) (50-70) % Band Neutrophils % (4-12) % Lymphocytes % (Manual) (20-40) % Absolute Neutrophils Band Neutrophils # Lymphocytes # (Manual) Sodium (136-145) mmol/L Potassium (3.3-5.3) mmol/L Chloride (98-115) mmol/L Carbon Dioxide (21.0-32.0) mmol/L Anion Gap (5-15) mmol/L BUN (6-25) mg/dL Creatinine (0.51-1.17) mg/dL Est Cr Clr Drug Dosing Estimated GFR (MDRD) mL/min Glucose (75 - 99) mg/dL Lactic Acid (0.4-2.0) mmol/L Calcium (8.7-10.3) mg/dL Total Bilirubin (0.2-1.0) mg/dL AST (15-37) U/L ALT (12-78) U/L Alkaline Phosphatase (46-116) IU/L Total Protein (6.4-8.2) g/dL Albumin (3.00-4.80) g/dL Specimen Type Urinqcath Urine Color Yellow (YELLOW) Urine Appearance Slightly cloudy H (CLEAR) Urine pH 5.5 (5.0-9.0) Ur Specific Justice 1.020 (1.005-1.030) Urine Protein Trace H (NEGATIVE) mg/dL Urine Glucose (UA) Negative (NEGATIVE) mg/dL Urine Ketones Negative (NEGATIVE) mg/dL Urine Occult Blood Negative (NEGATIVE) Urine Nitrite Negative (NEGATIVE) Urine Bilirubin Negative (NEGATIVE) Urine Urobilinogen 1.0 (0.2-1.0) E.U./dL Ur Leukocyte Esterase Negative (NEGATIVE) Urine RBC 0-5 (0-5) /HPF Urine WBC 0-5 (0-5) /HPF Ur Epithelial Cells Few /LPF Urine Bacteria Few (NONE TO FEW) /HPF Hyaline Casts Few H (NEGATIVE) /LPF Meds: Medications Generic Name Dose Route Start Last Admin Trade Name Freq PRN Reason Stop Dose Admin Azithromycin 500 mg/ Sodium 250 mls @ 250 mls/hr 06/09/19 18:27 Chloride IV 06/09/19 19:26 ONETIME ONE Sodium Chloride 10 ml 06/09/19 17:24 06/09/19 17:31 Saline Flush FLUSH 10 ml Q8HR PRN Administration keep vein open Discontinued Medications Generic Name Dose Route Start Last Admin Trade Name Freq PRN Reason Stop Dose Admin Acetaminophen 650 mg 06/09/19 17:25 06/09/19 17:30 Tylenol PO 06/09/19 17:26 650 mg NOW ONE Administration Ceftriaxone Sodium 1 gm 06/09/19 18:27 Rocephin IVPUSH 06/09/19 18:28 ONETIME ONE Sodium Chloride 1,000 mls @ 999 mls/hr 06/09/19 17:24 06/09/19 17:31 Normal Saline IV 06/09/19 18:24 999 mls/hr BOLUS ONE Administration - Radiology Interpretation Free Text/Narrative:: Chest x-ray shows COPD with scattered areas of parenchymal opacifications bilaterally consistent with pneumonia - Re-Assessments/Exams Free Text/Narrative Re-Assessment/Exam: 06/09/19 18:[address] Perkins,. Patient will be admitted inpatient and followed. Patient given 1 g Rocephin IV and 500 mg Zithromax IV. Departure - Departure Time of Disposition: 18:32 Disposition: Admitted As Inpatient 68 Condition: Serious Clinical Impression: Pneumonia Qualifiers: Pneumonia type: due to unspecified organism Laterality: bilateral Lung location : lower lobe of lung Qualified Code(s): J18.9 - Pneumonia, unspecified organism Fever Qualifiers: Fever type: unspecified Qualified Code(s): R50.9 - Fever, unspecified - Discharge Information Referrals: Latoya Muñiz, [employer] [Primary Care Provider] - Forms: ED Department Discharge Sepsis Event Note - Focused Exam Vital Signs: Vital Signs Temp Temp Pulse Resp BP Pulse Ox 06/09/19 18:00 101.8 F H 06/09/19 17:55 75 25 H 111/37 L 95 06/09/19 17:45 72 24 H 117/32 L 96 06/09/19 17:35 75 23 H 91/30 L 91 L 06/09/19 17:30 101.7 F H 06/09/19 17:25 84 25 H 92 L 06/09/19 17:20 101.7 F H 113 H 30 H 105/39 L 82 L Date Exam was Performed: 06/09/19 Time Exam was Performed: 18:31 - My Orders Last 24 Hours: My Active Orders 06/09/19 17:24 Chest 2V [CR] Stat CULTURE BLOOD [BC] Stat CULTURE BLOOD [BC] Stat Sodium Chloride 0.9% [Saline Flush] 10 ml FLUSH Q8HR PRN Blood Culture x2 Reflex Set [OM.PC] Stat Saline Lock Insert [OM.PC] Stat Severe Sepsis Onset Time [OM.PC] Stat 06/09/19 17:26 Peripheral IV Care [RC] . DIRECTED Peripheral IV Insertion Adult [OM.PC] Routine 06/09/19 18:27 Azithromycin [Zithromax] 500 mg Sodium Chloride 0.9% [Normal Saline] 250 ml IV ONETIME Resuscitation Status Routine 06/09/19 18:28 Patient Status [ADT] Routine Oxygen Therapy [RC] PRN VTE/DVT Education [RC] PER UNIT ROUTINE Vital Signs [RC] Q4H - Assessment/Plan Last 24 Hours: My Active Orders 06/09/19 17:24 Chest 2V [CR] Stat CULTURE BLOOD [BC] Stat CULTURE BLOOD [BC] Stat Sodium Chloride 0.9% [Saline Flush] 10 ml FLUSH Q8HR PRN Blood Culture x2 Reflex Set [OM.PC] Stat Saline Lock Insert [OM.PC] Stat Severe Sepsis Onset Time [OM.PC] Stat 06/09/19 17:26 Peripheral IV Care [RC] . DIRECTED Peripheral IV Insertion Adult [OM.PC] Routine 06/09/19 18:27 Azithromycin [Zithromax] 500 mg Sodium Chloride 0.9% [Normal Saline] 250 ml IV ONETIME Resuscitation Status Routine 06/09/19 18:28 Patient Status [ADT] Routine Oxygen Therapy [RC] PRN VTE/DVT Education [RC] PER UNIT ROUTINE Vital Signs [RC] Q4H Assessment:: Influenza B pneumonia Plan: Admit to [place]
[2019-06-09 17:58] LABS: ANION GAP 10.8 mmol/L (5-15); CHLORIDE,CL 97 mmol/L (98-115); SODIUM,NA 134 mmol/L (136-145)
[2019-06-09] MEDS ORDERED: Azithromycin 500 MG in Sodium Chloride 0.9% 250 ML IV ONE (18:27)
[2019-06-09] MEDS ORDERED: cefTRIAXone 1 GM Vial IVPUSH ONE (18:27)
--- NOTE | 2019-06-09 18:34 | CR ---
[id number] RAD/RAD Chest PA And Lateral EXAM: FRONTAL AND LATERAL CHEST INDICATION: FEVER COMPARISON: May 23, 2019. DISCUSSION: Bilateral basal and peripheral predominant interstitial opacities and airspace opacities likely represent the sequela of chronic interstitial lung disease, but early edema or infiltrates could be obscured. Small bilateral effusions are suggested. Normal heart size. Chronic obstructive pulmonary disease. IMPRESSION: 1. Findings most suggestive of chronic interstitial lung disease. Early superimposed infiltrates or edema would be difficult to exclude. 2. Development of small pleural effusions. eYison Jose MD 06/09/19 1833 Thank you for allowing us to participate in the care of your patient.
[2019-06-09] MEDS ORDERED: Sodium Chloride 0.9% 50 ML IV SCH ×2 (19:00)
[2019-06-09] MEDS ORDERED: Sodium Chloride 0.9% 500 ML IV SCH ×2 (20:00→21:15)
[2019-06-09] MEDS ORDERED: Magnesium Hydroxide 400 MG/5 ML Susp 30 ML Cup PO PRN (20:22)
[2019-06-09] MEDS ORDERED: Acetaminophen 325 MG Tab PO PRN (20:22)
[2019-06-09] MEDS ORDERED: Albuterol 8 GM Inhaler INH PRN (20:42)
[2019-06-09] MEDS ORDERED: Sodium Chloride 0.9% 1,000 ML IV SCH (21:45)
[2019-06-09] MEDS: Tamsulosin 0.4 MG Cap.ER PO SCH (21:48)
[2019-06-09] MEDS: atorvaSTATin 10 MG Tab PO SCH (21:49)
[2019-06-09] MEDS: lamoTRIgine 100 MG Tab PO SCH (21:49)
[2019-06-09] MEDS: Budesonide 0.5 MG/2 ML Neb Susp INH SCH (21:52)
[2019-06-09] MEDS: Nystatin Crm 15 GM Tube TOP SCH (22:11)
[2019-06-09] MEDS ORDERED: Sodium Chloride 0.9% 750 ML IV SCH (22:15)
--- NOTE | 2019-06-09 22:53 | HP ---
PATIENT PROFILE: The patient is an 88-year-old gentleman who presents to the emergency room from [facility] with a complaint of upper respiratory symptoms. These include cough, expectoration and dyspnea. The nursing facility gave the report. The patient was reported to have a high fever and low saturation and therefore they called 911. At the time of his presentation, the temperature was 101.7, oxygen saturation 90% on partial nonrebreather. The patient answers questions appropriately and appeared to be in no immediate distress. He was alert to space, time and person. He has been eating poorly and drinking poorly since yesterday. Also complains of being weak, warm, cold and having a cough. Denies any chest pain, headaches, bowel changes or abdominal pain. PAST MEDICAL HISTORY: Includes mixed simple and mucopurulent chronic bronchitis; HCC; mixed hyperlipidemia; cerebrovascular disease; peripheral vascular disease; mononeuritis multiplex; varicose veins of the lower extremities; essential hypertension; dysphagia; atypical depression, stable; previous history of hematuria, stable; malignant neoplasm of the bladder; hyponatremia in the past; sleep hypopnea; constipation; history of carotid artery endarterectomy; history of TIAs; history of seizure disorder; history of chronic obstructive pulmonary disease. PAST SURGICAL HISTORY: Includes cataracts bilaterally, tonsillectomy, left carotid endarterectomy and cystectomy. SOCIAL HISTORY: Noncontributory at this time. MEDICATIONS: As in the medication list. MEDICATIONS: Include: 1. Ativan 1 mg at bedtime on p.r.n. basis. 2. Cozaar, which is back as losartan 100 mg daily. 3. Tamsulosin (Flomax) 0.8 mg at bedtime. 4. Amlodipine 5 mg daily. 5. Lamotrigine 100 mg b.i.d. 6. Ascorbic acid 1000 mg daily. 7. Budesonide (Pulmicort) 1 unit one inhalation b.i.d. 8. Cholecalciferol (D3) 1000 units daily. 9. Atorvastatin 20 mg at bedtime. 10.Finasteride (Proscar) 5 mg daily. 11.Albuterol on a p.r.n. basis. 12.Acetaminophen 650 mg on a p.r.n. basis. 13.Magnesium hydroxide 30 mL daily. 14.Nystatin one application b.i.d. 15.Guaifenesin (Mucinex) 1 tablet b.i.d. Past history includes history of cataracts, history of decreased hearing, history of impaired visions. Past cardiovascular history includes high cholesterol, hypertension. Past respiratory history includes asthma, COPD, pneumonia, recently admitted in April of this year. Gastrointestinal history: Chronic constipation, GERD. Genitourinary System: History of BPH. Musculoskeletal history: Complains of back pain that is chronic. Neurological history: Previous history of CVA. Endocrine history: Negative. Oncologic history: Bladder carcinoma. Infectious Disease: Reports chickenpox, measles, mumps, rubella and polio at age 5. ALLERGIES: Include aspirin, atenolol and beta blockers. FAMILY HISTORY: Noncontributory at this time. REVIEW OF SYSTEMS: HEAD AND NECK: No complaints. EYES, EARS, NOSE, THROAT: No complaints. CONSTITUTIONAL: Complaints of having fever and weakness. ENT: No complaints. RESPIRATORY: Chronic cough, expectoration, slight shortness of breath. Expectorating. CARDIOVASCULAR SYSTEM: No chest pain. ENDOCRINE: No complaints. GI SYSTEM: No complaints. SYSTEM: No complaints. MUSCULOSKELETAL: No complaints. SKIN: No complaints. NEUROLOGIC: No complaints. PSYCHIATRIC: No complaints. HEMATOLOGIC: No complaints. IMMUNOLOGIC: No complaints. PHYSICAL EXAMINATION: GENERAL: Reveals an elderly patient, thin built, appears to be in mild to moderate distress. He was examined in his bed. VITAL SIGNS: Pulse 84, respirations 16, blood pressure 150/80. HEAD: Negative EYES: Arcus senilis. NECK: Supple. Jugular veins are not engorged. Trachea is midline. Lymph nodes are not enlarged. EARS, NOSE, AND THROAT: Normal. LUNGS: Reveal few crackles bilaterally. Some rhonchi in the mid zones. Percussion is tympanitic. CARDIOVASCULAR: Normal heart and regular rhythm. No thrills, no murmurs. No tachycardia. Normal peripheral pulses. GASTROINTESTINAL: Abdomen is flat. No masses are palpable. No hepatosplenomegaly. EXTREMITIES: Negative. NEUROLOGIC: No complaints. SKIN: Examination reveals him to be warm, dry. Normal color. No rashes. LYMPHATIC: No adenopathy. Temperature is 101.8. Pulse is 75, respirations 25, blood pressure was actually 111/37 initially. Pulse oxygenation is 95%. LABORATORY DATA: Hemoglobin is 12.1, white count is 13.08, neutrophils are 94%. Bands neutrophils are 2, lymphocytes 4, absolute neutrophils 12.30. Sodium 134. Potassium, chloride, carbon dioxide, anion gap and BUN and creatinine are normal. GFR is greater than 60. Glucose 106. Lactic acid is 1.4, normal up to 2. Calcium 8.2, normal 8.7. Bilirubin normal. AST, ALT normal. Alkaline phosphatase normal. Albumin 3.06. Total protein 6.5. Urinalysis negative. Chest x-ray performed. Shows patchy interstitial fibrosis, question pneumonia at the bases. Previously, the patient had chest x-ray, as well as CAT scan in April. X-rays are compared. No definite increase in markings. FINAL DIAGNOSES: 1. Suspect acute pneumonia superimposed on chronic interstitial fibrosis, chronic obstructive pulmonary disease and asthma. 2. Hypotension. 3. History of malignant neoplasm of the bladder, stable. 4. Hypertension (currently hypotensive). 5. History of cerebrovascular disease. 6. History of peripheral vascular disease. 7. History of hyperlipidemia. 8. History of bronchitis. 9. History of depression. 10.History of dysphagia. 11.History of sleep disorder. PLAN: Plan will be to continue all medications as before. We will start antibiotics of Rocephin and Zithromax. For the hypotension, we will give him a bolus of normal saline and monitor his blood pressures carefully. Supportive care. He is a DNR. His amlodipine will be held, losartan also will be held. Tamsulosin will be continued. Albuterol inhalations will be given on a p.r.n. basis as well as budesonide. His lorazepam will be given on a p.r.n. basis only. /[id number]/MODL
[2019-06-10] MEDS: Sodium Chloride 0.9% 1,000 ML IV SCH ×2 (04:18→08:00)
[2019-06-10] MEDS: lamoTRIgine 100 MG Tab PO SCH ×2 (08:29→20:29)
[2019-06-10] MEDS: Cholecalciferol (Vitamin D3) 25 MCG Tab PO SCH (08:29)
[2019-06-10] MEDS: Ascorbic Acid 500 MG Tab PO SCH (08:29)
[2019-06-10] MEDS: Nystatin Crm 15 GM Tube TOP SCH ×2 (08:30→20:30)
[2019-06-10] MEDS: Budesonide 0.5 MG/2 ML Neb Susp INH SCH ×2 (08:50→21:01)
[2019-06-10 11:13] LABS: ANION GAP 9.8 mmol/L (5-15); CHLORIDE,CL 101 mmol/L (98-115); SODIUM,NA 135 mmol/L (136-145)
[2019-06-10] MEDS: Enoxaparin 30 MG/0.3 ML Syringe SUBCUT SCH ×2 (11:41→23:03)
[2019-06-10] MEDS: Azithromycin 250 MG Tab PO SCH (11:43)
[2019-06-10] MEDS ORDERED: Sodium Chloride 0.9% 1,000 ML IV SCH ×2 (14:45→17:32)
[2019-06-10] MEDS: Albuterol 0.083% 2.5 MG/3 ML Neb Soln NEB PRN (17:10)
[2019-06-10] MEDS: guaiFENesin 100 MG/5 ML Soln 5 ML UD Cup PO PRN (17:16)
[2019-06-10] MEDS ORDERED: Furosemide 40 MG/4 ML VIAL IVPUSH ONE (17:30)
[2019-06-10] MEDS ORDERED: cefTRIAXone 1 GM Vial IVPUSH SCH (18:30)
[2019-06-10] MEDS: Tamsulosin 0.4 MG Cap.ER PO SCH (20:29)
[2019-06-10] MEDS: atorvaSTATin 10 MG Tab PO SCH (20:30)
[2019-06-10] MEDS: Oseltamivir 75 MG Cap PO SCH (21:01)
[2019-06-11] MEDS ORDERED: Sodium Chloride 0.9% 1,000 ML IV SCH (01:00)
[2019-06-11] MEDS: Albuterol 0.083% 2.5 MG/3 ML Neb Soln NEB PRN (06:44)
[2019-06-11 08:01] LABS: CHLORIDE,CL 99 mmol/L (98-115); SODIUM,NA 135 mmol/L (136-145)
[2019-06-11] MEDS: Cholecalciferol (Vitamin D3) 25 MCG Tab PO SCH (08:34)
[2019-06-11] MEDS: Ascorbic Acid 500 MG Tab PO SCH (08:34)
[2019-06-11] MEDS: Azithromycin 250 MG Tab PO SCH (08:34)
[2019-06-11] MEDS: lamoTRIgine 100 MG Tab PO SCH ×2 (08:34→20:07)
[2019-06-11] MEDS: Budesonide 0.5 MG/2 ML Neb Susp INH SCH ×2 (08:34→20:17)
[2019-06-11] MEDS: Oseltamivir 75 MG Cap PO SCH ×2 (08:34→20:08)
[2019-06-11] MEDS: Nystatin Crm 15 GM Tube TOP SCH ×2 (09:44→20:13)
[2019-06-11] MEDS: Enoxaparin 30 MG/0.3 ML Syringe SUBCUT SCH (09:54)
[2019-06-11] MEDS: guaiFENesin 100 MG/5 ML Soln 5 ML UD Cup PO PRN (11:51)
--- NOTE | 2019-06-11 13:38 | PCM.PN ---
- General Info Date of Service: 06/11/19 Subjective Update: Feeling mildly better. Breathing still coarse and at times feels short of breath , but overall improved. Eating well. No BM in 2 days. Voiding through catheter, which he reports as nuisance. Nursing reports improvement in respiratory status. No concerns. - Patient Data Vitals - Most Recent: Last Vital Signs Temp 36.4 C 06/11/19 10:59 Pulse 73 06/11/19 10:59 Resp 22 H 06/11/19 10:59 BP 115/52 L 06/11/19 10:59 Pulse Ox 92 L 06/11/19 10:59 Weight - Most Recent: 65.272 kg I&O - Last 24 Hours: Intake & Output 06/10/19 06/11/19 06/11/19 22:59 06:59 14:59 Intake Total 782 800 Output Total 650 500 Balance 132 300 Lab Results Last 24 Hours: Laboratory Results - last 24 hr 06/10/19 06/11/19 Range/Units 23:58 07:38 Sodium 135 L (136-145) mmol/L Potassium 4.0 (3.3-5.3) mmol/L Chloride 99 (98-115) mmol/L Carbon Dioxide 30.0 (21.0-32.0) mmol/L Anion Gap 10.0 (5-15) mmol/L BUN 11 (6-25) mg/dL Creatinine 0.79 (0.51-1.17) mg/dL Est Cr Clr Drug Dosing 55.08 mL/min Estimated GFR (MDRD) > 60 mL/min Glucose 93 (75 - 99) mg/dL Calcium 7.5 L (8.7-10.3) mg/dL B-Natriuretic Peptide 429 H (0-100) pg/mL Albaro Results Last 24 Hours: Microbiology 06/09/19 18:20 Aerobic Blood Culture - Preliminary Blood - Venous - Lab Draw NO GROWTH AFTER 1 DAY Anaerobic Blood Culture - Preliminary NO GROWTH AFTER 1 DAY 06/09/19 17:30 Aerobic Blood Culture - Preliminary Blood - Venous NO GROWTH AFTER 1 DAY Anaerobic Blood Culture - Preliminary NO GROWTH AFTER 1 DAY Med Orders - Current: Current Medications Acetaminophen (Tylenol) 650 mg PO Q4H PRN PRN Reason: Pain or Fever Albuterol/Ipratropium (Duoneb 3.0-0.5 Mg/3 Ml) 3 ml NEB Q4HRRT PRN PRN Reason: shortness of breath, wheezing Ascorbic Acid (Vitamin C) 1,000 mg PO DAILY PENDING SALE TO [facility] Last Admin: 06/11/19 08:34 Dose: 1,000 mg Atorvastatin Calcium (Lipitor) 20 mg PO BEDTIME PENDING SALE TO [facility] Last Admin: 06/10/19 20:30 Dose: 20 mg Azithromycin (Zithromax) 250 mg PO DAILY PENDING SALE TO [facility] Last Admin: 06/11/19 08:34 Dose: 250 mg Budesonide (Pulmicort) 0.5 mg INH BID PENDING SALE TO [facility] Last Admin: 06/11/19 08:34 Dose: 0.5 mg Cholecalciferol (Vitamin D3) 25 mcg PO DAILY PENDING SALE TO [facility] Last Admin: 06/11/19 08:34 Dose: 25 mcg Enoxaparin Sodium (Lovenox) 40 mg SUBCUT Q24H PENDING SALE TO [facility] Guaifenesin (Robitussin) 200 mg PO QID PRN PRN Reason: Cough Last Admin: 06/11/19 11:51 Dose: 200 mg Lamotrigine (Lamotrigine) 100 mg PO BID PENDING SALE TO [facility] Last Admin: 06/11/19 08:34 Dose: 100 mg Magnesium Hydroxide (Milk Of Magnesia) 30 ml PO DAILY PRN PRN Reason: Constipation Nystatin (Nystatin Crm) 0 gm TOP BID PENDING SALE TO [facility] Last Admin: 06/11/19 09:44 Dose: 1 applic Oseltamivir Phosphate (Tamiflu) 75 mg PO BID PENDING SALE TO [facility] Last Admin: 06/11/19 08:34 Dose: 75 mg Sodium Chloride (Saline Flush) 10 ml FLUSH Q8HR PRN PRN Reason: keep vein open Last Admin: 06/09/19 17:31 Dose: 10 ml Tamsulosin HCl (Flomax) 0.8 mg PO BEDTIME PENDING SALE TO [facility] Last Admin: 06/10/19 20:29 Dose: 0.8 mg Discontinued Medications Acetaminophen (Tylenol) 650 mg PO NOW ONE Stop: 06/09/19 17:26 Last Admin: 06/09/19 17:30 Dose: 650 mg Albuterol (Ventolin Hfa) 0 gm INH QID PRN PRN Reason: shortness of breath Albuterol (Proventil Neb Soln) 2.5 mg NEB Q4H PRN PRN Reason: wheezing Last Admin: 06/11/19 06:44 Dose: 2.5 mg Ceftriaxone Sodium (Rocephin) 1 gm IVPUSH ONETIME ONE Stop: 06/09/19 18:28 Last Admin: 06/09/19 18:39 Dose: 1 gm Ceftriaxone Sodium (Rocephin) 1 gm IVPUSH Q24H PENDING SALE TO [facility] Last Admin: 06/10/19 17:45 Dose: 1 gm Enoxaparin Sodium (Lovenox) 30 mg SUBCUT Q12H PENDING SALE TO [facility] Last Admin: 06/11/19 09:54 Dose: 30 mg Furosemide (Lasix) 20 mg IVPUSH NOW ONE Stop: 06/10/19 17:31 Last Admin: 06/10/19 17:41 Dose: 20 mg Sodium Chloride (Normal Saline) 1,000 mls @ 999 mls/hr IV BOLUS ONE Stop: 06/09/19 18:24 Last Admin: 06/09/19 17:31 Dose: 999 mls/hr Azithromycin 500 mg/ Sodium (Chloride) 250 mls @ 250 mls/hr IV ONETIME ONE Stop: 06/09/19 19:26 Last Admin: 06/09/19 19:01 Dose: 250 mls/hr Sodium Chloride (Normal Saline) 50 mls @ 100 mls/hr IV DAILY@1900 PENDING SALE TO [facility] Last Admin: 06/09/19 19:04 Dose: Not Given Sodium Chloride (Normal Saline) 50 mls @ 100 mls/hr IV DAILY@1900 PENDING SALE TO [facility] Last Admin: 06/09/19 19:29 Dose: 100 mls/hr Sodium Chloride (Normal Saline) 500 mls @ 999 mls/hr IV .BOLUS PENDING SALE TO [facility] Stop: 06/09/19 20:30 Last Admin: 06/09/19 20:10 Dose: 999 mls/hr Sodium Chloride (Normal Saline) 500 mls @ 999 mls/hr IV .BOLUS PENDING SALE TO [facility] Stop: 06/09/19 21:45 Last Admin: 06/09/19 21:20 Dose: 999 mls/hr Sodium Chloride (Normal Saline) 1,000 mls @ 125 mls/hr IV ASDIRECTED PENDING SALE TO [facility] Stop: 06/10/19 03:45 Sodium Chloride (Normal Saline) 1,000 mls @ 125 mls/hr IV ASDIRECTED PENDING SALE TO [facility] Last Infusion: 06/10/19 17:34 Dose: 75 mls/hr Sodium Chloride (Normal Saline) 750 mls @ 125 mls/hr IV ASDIRECTED PENDING SALE TO [facility] Last Admin: 06/09/19 22:10 Dose: 125 mls/hr Sodium Chloride (Normal Saline) 1,000 mls @ 125 mls/hr IV ASDIRECTED BERNABE Sodium Chloride (Normal Saline) 1,000 mls @ 75 mls/hr IV ASDIRECTED PENDING SALE TO [facility] Last Admin: 06/10/19 21:00 Dose: 75 mls/hr Vancomycin HCl 1 gm/ Sodium (Chloride) 250 mls @ 167 mls/hr IV BID PENDING SALE TO [facility] Last Admin: 06/11/19 09:43 Dose: 167 mls/hr Sodium Chloride (Normal Saline) 1,000 mls @ 50 mls/hr IV ASDIRECTED PENDING SALE TO [facility] Last Admin: 06/11/19 01:24 Dose: 50 mls/hr Vancomycin HCl (Pharmacy To Dose - Vancomycin) 1 dose .XX ASDIRECTED PENDING SALE TO [facility] - Exam Physical Findings Comments:: GENERAL: Well-appearing elderly male sitting in bedside chair in no acute distress. HEENT: Normocephalic, atraumatic. Conjunctiva clear. Nasal cannula in place. Mucous membranes moist, posterior pharynx unremarkable. NECK: Supple, no masses. CV: Regular rate and rhythm, no murmurs, rubs, or gallops. 2+ radial pulses. PULMONARY: Normal effort, diffuse rhonchi, no wheezes or rales. ABDOMEN: Positive bowel sounds, soft, nontender, nondistended. EXTREMITIES: No edema, cyanosis, or clubbing. MUSCULOSKELETAL: Moves all extremities well. NEUROLOGICAL: No obvious deficits. DERMATOLOGIC: No rashes or suspicious lesions in exposed areas. PSYCHIATRIC: Alert, interactive, appropriate affect. Sepsis Event Note - Evaluation Sepsis Screening Result: No Definite Risk - Focused Exam Vital Signs: Vital Signs Temp Pulse Resp BP Pulse Ox Pulse Ox 06/11/19 10:59 36.4 C 73 22 H 115/52 L 92 L 06/11/19 08:40 72 90 L 06/11/19 07:25 85 L 06/11/19 06:44 72 84 L 06/11/19 06:35 36.7 C 64 24 H 138/58 L 84 L 06/11/19 03:00 37.1 C 66 22 H 117/54 L 92 L Date Exam was Performed: 06/11/19 Time Exam was Performed: 13:39 - Problem List Review Problem List Initiated/Reviewed/Updated: Yes - My Orders Last 24 Hours: My Active Orders 06/11/19 11:55 Albuterol/Ipratropium [DuoNeb 3.0-0.5 MG/3 ML] 3 ml NEB Q4HRRT PRN 06/11/19 11:56 RT Aerosol Therapy [RC] ASDIRECTED 06/12/19 05:11 BMP [BASIC METABOLIC PANEL,BMP] [CHEM] AM CBC WITH AUTO DIFF [HEME] AM 06/12/19 12:00 Enoxaparin [Lovenox] 40 mg SUBCUT Q24H - Assessment Assessment:: HPI summary: 88yoM with a history notable for COPD (no recent PFTs on file) and chronic nocturnal hypoxia (on oxygen 3lpm at baseline) who was noted to fever and increased work of breathing and oxygen requirement at [facility] where he resides. He was brought to the [facility] ED for evaluation. ED pertinent findings: - VS: T 101.8, RR 25, O2 90% on 5lpm via nasal cannula - Influenza B positive - WBC 13, Na 134, LA 1.4 - UA and remainder of CBC and CMP unremarkable - CXR consistent with chronic interstitial lung disease without localized infiltrate - He was given NS 1L, ceftriaxone 1g, and azithromycin 500mg IV Hospital course: He was continued on ceftriaxone and azithromycin, with addition of vancomycin on the night of 06/10/19 when oseltamivir was also started. Overall respiratory status improved with albuterol nebulizer treatments. He was weaned to his baseline oxygen of 3lpm. A Balderrama catheter was placed due to low output on the evening of 06/10/19, but then with ongoing low output, so IVF were increased with good response. On the evening of 06/10/19, he was also given a one time dose of furosemide 20mg IV with subsequent increase in output overnight and ongoing improvement in respiratory status. Today, he has had ongoing improvement. Intake improving. Oxygen at baseline. Ongoing rhonchi. No recurrent fever. Hospitalization problems and plan: # Influenza B # Pneumonia: most likely secondary to influenza, though early bacterial component possible # Chronic hypoxic respiratory failure: now at baseline oxygen requirement - Continue oseltamavir to finish 5 day course (last day 06/15/19) - Continue azithromycin to finish 5 day course (last day 06/13/19) - Change albuterol to DuoNebs q4h prn - Continue Mucinex and Robitussin prn - Blood and respiratory culture surveillance - Recheck CBC tomorrow - Oxygen titrated to keep O2 >88% # Dehydration, resolved # Decreased urinary output, resolved # Hyponatremia, chronic: also likely in setting of decreased intake - SLIV - Discontinue Balderrama - Recheck BMP tomorrow Chronic, stable conditions: # COPD: Continue Pulmicort. # Mild diastolic dysfunction: No evidence of overload, though weight up, so stopping fluids as above. Not on diuretics at baseline. # PVD and hx TIA: ASA allergy, so not on at baseline. # HTN: Low end in setting of acute infection. Holding losartan 100mg and amlodipine 5mg. # Constipation: Miralax daily and milk of magnesia prn # BPH: Continue tamsulosin and finasteride. # HLD: Continue atorvastatin. # Seizure disorder: No recent recurrence. Continue lamotrigine. # Insomnia: Holding lorazepam. # Hx bladder cancer Hospitalization details: # FEN: SLIV. Electrolytes normal except mild hyponatremia, as above. Regular diet. # PPX: Enoxaparin for DVT ppx. Melatonin for delirium ppx. # Code status: DNR/DNI. # Emergency contact: , who will be updated by nursing today. # Disposition: Continue inpatient status. Anticipate discharge back to [facility] in the next 1-2 days.
[2019-06-11] MEDS: Polyethylene Glycol 3350 Powder 17 GM Packet PO SCH (15:10)
[2019-06-11] MEDS: Tamsulosin 0.4 MG Cap.ER PO SCH (20:06)
[2019-06-11] MEDS: atorvaSTATin 10 MG Tab PO SCH (20:07)
[2019-06-11] MEDS: guaiFENesin 600 MG Tab.ER PO SCH (20:08)
[2019-06-11] MEDS ORDERED: Melatonin 3 MG Tab PO SCH (21:00)
[2019-06-11] MEDS: Albuterol/Ipratropium 3.0-0.5 MG/3 ML Neb Soln NEB PRN (23:21)
[2019-06-12] MEDS: Albuterol/Ipratropium 3.0-0.5 MG/3 ML Neb Soln NEB PRN (06:44)
[2019-06-12 07:36] LABS: ANION GAP 11.1 mmol/L (5-15); CHLORIDE,CL 97 mmol/L (98-115); SODIUM,NA 134 mmol/L (136-145)
--- NOTE | 2019-06-12 08:18 | PN ---
06/10/2019 PATIENT NAME: ROYAL Stacey REYNAGA PROBLEMS: Pneumonia superimposed on chronic interstitial pulmonary fibrosis. The patient vital signs are reviewed today. They include a temperature of 98.1, blood pressure is still low at 93/50, oxygen saturation 64. Intake and output: The patient's intake was 3450, output was 600 mL. PHYSICAL EXAMINATION: GENERAL: Patient is alert, well oriented to space, time, and person. VITAL SIGNS: Pulse 84, respirations 20. NECK: Supple. Jugular venous pulses are just palpable. Thyroid gland is not enlarged. LUNGS: Reveal crackles bilaterally in the mid zones. HEART: Regular rhythm. No thrills, no murmurs. ABDOMEN: Soft. EXTREMITIES: Normal. FINAL DIAGNOSES: 1. Bilateral pneumonia superimposed on chronic interstitial pulmonary fibrosis. Plan: Continue medications; IV Vancomycin and IV Zithromax. Rocephin will be stopped as [facility]. His temperature is normal , however. 2. Thromboembolism prophylaxis. Continue enoxaparin 30 mg subcutaneously every 12 hours. 3. History of seizures. Continue lamotrigine 100 mg b.i.d. 4. Hypotension. Continue IV fluids and encouraged oral fluids. In the past, the patient has had history of hyponatremia, so this may be a problem. Repeat CBC and CMP are being done today. 5. For his chronic obstructive pulmonary disease, he will continue budesonide inhaled as well as albuterol inhalation on a p.r.n. basis. We will see how he does tomorrow. 6. Inadequate voiding. Balderrama catheter was placed because he was unable to void. Output has been fairly decent up until this point in time. We will continue to closely monitor this patient. /[id number]/MODL Influenza B is positive. Will start Tamiflu. 75 mg bid. MTDD
[2019-06-12] MEDS: Cholecalciferol (Vitamin D3) 25 MCG Tab PO SCH (08:23)
[2019-06-12] MEDS: Oseltamivir 75 MG Cap PO SCH (08:23)
[2019-06-12] MEDS: Polyethylene Glycol 3350 Powder 17 GM Packet PO SCH (08:23)
[2019-06-12] MEDS: Ascorbic Acid 500 MG Tab PO SCH (08:23)
[2019-06-12] MEDS: lamoTRIgine 100 MG Tab PO SCH (08:23)
[2019-06-12] MEDS: Azithromycin 250 MG Tab PO SCH (08:24)
[2019-06-12] MEDS: guaiFENesin 600 MG Tab.ER PO SCH (08:24)
[2019-06-12] MEDS: Budesonide 0.5 MG/2 ML Neb Susp INH SCH (08:54)
[2019-06-12] MEDS ORDERED: Finasteride 5 MG Tab PO SCH (09:00)
[2019-06-12] MEDS: Nystatin Crm 15 GM Tube TOP SCH (09:30)
[2019-06-12 10:51] VITALS: BP 114/65; PULSE 73
--- NOTE | 2019-06-12 11:33 | PCM.DCSUM1 ---
Discharge Summary - Hospital Course Free Text/Narrative:: Date of admission: 06/09/2019 Date of discharge: 06/12/2019 Admission diagnoses: # Influenza B # Pneumonia # Chronic hypoxic respiratory failure # Dehydration # Decreased urinary output # Hyponatremia, chronic # COPD # Mild diastolic dysfunction # PVD and hx TIA # HTN # Constipation # BPH # HLD # Seizure disorder # Insomnia # Hx bladder cancer Discharge diagnoses: # Influenza B # Pneumonia, likely secondary to influenza # Chronic hypoxic respiratory failure, at baseline # Dehydration, resolved # Decreased urinary output, resolved # Hyponatremia, chronic # COPD # Mild diastolic dysfunction # PVD and hx TIA # HTN # Constipation # BPH # HLD # Seizure disorder # Insomnia # Hx bladder cancer Consultations: None Procedures: None Hospital course: 88yoM with a history notable for COPD (no recent PFTs on file) and chronic nocturnal hypoxia (on oxygen 3lpm at baseline) who was noted to fever and increased work of breathing and oxygen requirement at [facility] where he resides. He was brought to the [facility] ED for evaluation. He was found to have T 101.8, increased O2 requirement at 5lpm, influenza B positive, and CXR consistent with chronic interstitial lung disease without localized infiltrate. He was given NS 1L, ceftriaxone 1g, and azithromycin 500mg IV. He was admitted for ongoing monitoring and management. He was continued on ceftriaxone and azithromycin, with addition of vancomycin on the night of 06/10/19 when oseltamivir was also started. Overall respiratory status improved with albuterol nebulizer treatments. He was weaned to his baseline oxygen of 3lpm. A Balderrama catheter was placed due to low output on the evening of 06/10/19, but then with ongoing low output, so IVF were increased with good response. On the evening of 06/10/19, he was also given a one time dose of furosemide 20mg IV with subsequent increase in output overnight and ongoing improvement in respiratory status. On day of discharge, he had ongoing improvement back to near baseline. Oxygen at baseline. Ongoing scattered rhonchi. No recurrent fever. He was continued on home medications except for antihypertensives initially in his course due to borderline low BPs. Discharge and follow-up recommendations: - Discharge to [facility] - New medications at discharge: - Oseltamavir to finish 5 day course (last day 06/15/19) - Azithromycin to finish 5 day course (last day 06/13/19) - Change albuterol to DuoNebs q4h prn shortness of breath/wheezing - Decrease losartan to 50mg daily (down from 100mg daily) - Follow-up on next [place] [facility] rounds - Discharge Data Discharge Date: 06/12/19 Discharge Disposition: DC/Tfer to SNF 03 Condition: Good - Referral to Home Health Primary Care Physician: Latoya Muñiz NP - Patient Instructions Diet: Usual Diet as Tolerated Activity: As Tolerated Notify Provider of: Fever (temperature greater than 100.4) - Discharge Plan *PRESCRIPTION DRUG MONITORING PROGRAM REVIEWED*: Not Applicable *COPY OF PRESCRIPTION DRUG MONITORING REPORT IN PATIENT CHRISTIE: Not Applicable Prescriptions/Med Rec: Albuterol/Ipratropium [DuoNeb 3.0-0.5 MG/3 ML] 3 ml NEB Q4HRRT PRN #30 neb PRN Reason: shortness of breath, wheezing Azithromycin [Zithromax] 250 mg PO DAILY #1 tablet Oseltamivir [Tamiflu] 75 mg PO BID #7 cap Home Medications: Home Meds LORazepam [Ativan] 1 mg PO BEDTIME PRN 10/28/13 [History] Tamsulosin [Flomax] 0.8 mg PO BEDTIME 10/28/13 [History] amLODIPine [Norvasc] 5 mg PO DAILY 10/28/13 [History] lamoTRIgine [Lamictal] 100 mg PO BID 10/28/13 [History] Ascorbic Acid [C-1000] 1,000 mg PO DAILY 07/25/15 [History] Budesonide [Pulmicort] 1 unit INH BID 07/25/15 [History] Cholecalciferol (Vitamin D3) [Vitamin D3] 1,000 unit PO DAILY 07/25/15 [History] atorvaSTATin [Lipitor] 20 mg PO BEDTIME #30 tablet 07/29/15 [Rx] Finasteride [Proscar] 5 mg PO DAILY 09/14/16 [History] Acetaminophen [Tylenol] 650 mg PO Q4H PRN 05/24/19 [History] Magnesium Hydroxide [Milk of Magnesia] 30 ml PO DAILY PRN 05/24/19 [History] Nystatin [Nystatin Crm] 1 applic TOP BID 05/24/19 [History] Albuterol Sulfate [Proair Respiclick] 1 puff INH QID PRN 06/09/19 [History] guaiFENesin [Mucinex] 1 tab PO BID 06/09/19 [History] Albuterol/Ipratropium [DuoNeb 3.0-0.5 MG/3 ML] 3 ml NEB Q4HRRT PRN #30 neb 06/12 [Rx] Azithromycin [Zithromax] 250 mg PO DAILY #1 tablet 06/12/19 [Rx] Losartan [Cozaar] 50 mg PO DAILY #30 tab 06/12/19 [Rx] Oseltamivir [Tamiflu] 75 mg PO BID #7 cap 06/12/19 [Rx] polyethylene glycoL 3350 [MiraLAX] 17 gm PO DAILY packet 06/12/19 [Rx] Oxygen Therapy Mode: Nasal Cannula Oxygen Flow Rate (L/min): 3 Maintain SPO2% less than: 95 Maintain SpO2% greater than: 88 Referrals: Latoya Muñiz, [employer] [Primary Care Provider] - (Next [place] [facility] rounds) - Discharge Summary/Plan Comment DC Time >30 min.: Yes - General Info Subjective Update: Feeling better than at admission, but with ongoing shortness of breath with exertion which was present for the past few months. Eating well. BM yesterday. Voiding without difficulty. Nursing reports improvement in respiratory status. No concerns. - Patient Data Vitals - Most Recent: Last Vital Signs Temp 36.6 C 06/12/19 10:49 Pulse 73 06/12/19 10:49 Resp 24 H 06/12/19 10:49 BP 114/65 06/12/19 10:49 Pulse Ox 93 L 06/12/19 10:49 Weight - Most Recent: 65.771 kg I&O - Last 24 hours: Intake & Output 06/11/19 06/12/19 06/12/19 22:59 06:59 14:59 Intake Total 300 250 Output Total 400 950 Balance -100 -700 Lab Results - Last 24 hrs: Laboratory Results - last 24 hr 06/12/19 06/12/19 Range/Units 07:00 07:00 WBC 7.25 (5.00-10.00) 10^3/uL RBC 3.36 L (4.50-6.00) 10^6/uL Hgb 10.6 L (13.0-17.0) g/dL Hct 32.7 L (40.0-52.0) % MCV 97.3 H (82.0-92.0) fL MCH 31.5 H (27.0-31.0) pg MCHC 32.4 (32.0-36.0) g/dL RDW 13.2 (11.5-14.5) % Plt Count 205 (150-400) 10^3/uL MPV 9.2 (7.4-10.4) fL Immature Gran % (Auto) 0.1 (0.0-5.0) % Neut % (Auto) 77.8 H (50.0-70.0) % Lymph % (Auto) 10.8 L (20.0-40.0) % Trinity % (Auto) 9.2 H (2.0-8.0) % Eos % (Auto) 1.7 (1.0-3.0) % Baso % (Auto) 0.4 (0.0-1.0) % Immature Gran # (Auto) 0.01 (0.00-0.50) 10^3/uL Neut # (Auto) 5.64 (2.50-7.00) 10^3/uL Lymph # (Auto) 0.78 L (1.00-4.00) 10^3/uL Trinity # (Auto) 0.67 (0.10-0.80) 10^3/uL Eos # (Auto) 0.12 (0.10-0.30) 10^3/uL Baso # (Auto) 0.03 (0.00-0.10) 10^3/uL Sodium 134 L (136-145) mmol/L Potassium 4.1 (3.3-5.3) mmol/L Chloride 97 L (98-115) mmol/L Carbon Dioxide 30.0 (21.0-32.0) mmol/L Anion Gap 11.1 (5-15) mmol/L BUN 6 (6-25) mg/dL Creatinine 0.66 (0.51-1.17) mg/dL Est Cr Clr Drug Dosing 74.74 mL/min Estimated GFR (MDRD) > 60 mL/min Glucose 97 (75 - 99) mg/dL Calcium 7.9 L (8.7-10.3) mg/dL MAGDALENO Results - Last 24 hrs: Microbiology 06/09/19 18:20 Aerobic Blood Culture - Preliminary Blood - Venous - Lab Draw NO GROWTH AFTER 2 DAYS Anaerobic Blood Culture - Preliminary NO GROWTH AFTER 2 DAYS 06/09/19 17:30 Aerobic Blood Culture - Preliminary Blood - Venous NO GROWTH AFTER 2 DAYS Anaerobic Blood Culture - Preliminary NO GROWTH AFTER 2 DAYS Med Orders - Current: Current Medications Acetaminophen (Tylenol) 650 mg PO Q4H PRN PRN Reason: Pain or Fever Albuterol/Ipratropium (Duoneb 3.0-0.5 Mg/3 Ml) 3 ml NEB Q4HRRT PRN PRN Reason: shortness of breath, wheezing Last Admin: 06/12/19 06:44 Dose: 3 ml Ascorbic Acid (Vitamin C) 1,000 mg PO DAILY [facility] Last Admin: 06/12/19 08:23 Dose: 1,000 mg Atorvastatin Calcium (Lipitor) 20 mg PO BEDTIME [facility] Last Admin: 06/11/19 20:07 Dose: 20 mg Azithromycin (Zithromax) 250 mg PO DAILY [facility] Last Admin: 06/12/19 08:24 Dose: 250 mg Budesonide (Pulmicort) 0.5 mg INH BID [facility] Last Admin: 06/12/19 08:54 Dose: 0.5 mg Cholecalciferol (Vitamin D3) 25 mcg PO DAILY [facility] Last Admin: 06/12/19 08:23 Dose: 25 mcg Enoxaparin Sodium (Lovenox) 40 mg SUBCUT Q24H [facility] Last Admin: 06/12/19 11:10 Dose: 40 mg Finasteride (Proscar) 5 mg PO DAILY [facility] Last Admin: 06/12/19 08:23 Dose: 5 mg Guaifenesin (Robitussin) 200 mg PO QID PRN PRN Reason: Cough Last Admin: 06/11/19 11:51 Dose: 200 mg Guaifenesin (Mucinex) 600 mg PO BID [facility] Last Admin: 06/12/19 08:24 Dose: 600 mg Lamotrigine (Lamotrigine) 100 mg PO BID [facility] Last Admin: 06/12/19 08:23 Dose: 100 mg Magnesium Hydroxide (Milk Of Magnesia) 30 ml PO DAILY PRN PRN Reason: Constipation Melatonin (Melatonin) 3 mg PO BEDTIME [facility] Last Admin: 06/11/19 20:07 Dose: 3 mg Nystatin (Nystatin Crm) 0 gm TOP BID [facility] Last Admin: 06/12/19 09:30 Dose: 1 applic Oseltamivir Phosphate (Tamiflu) 75 mg PO BID [facility] Last Admin: 06/12/19 08:23 Dose: 75 mg Polyethylene Glycol (Miralax) 17 gm PO DAILY [facility] Last Admin: 06/12/19 08:23 Dose: 17 gm Sodium Chloride (Saline Flush) 10 ml FLUSH Q8HR PRN PRN Reason: keep vein open Last Admin: 06/09/19 17:31 Dose: 10 ml Tamsulosin HCl (Flomax) 0.8 mg PO BEDTIME [facility] Last Admin: 06/11/19 20:06 Dose: 0.8 mg Discontinued Medications Acetaminophen (Tylenol) 650 mg PO NOW ONE Stop: 06/09/19 17:26 Last Admin: 06/09/19 17:30 Dose: 650 mg Albuterol (Ventolin Hfa) 0 gm INH QID PRN PRN Reason: shortness of breath Albuterol (Proventil Neb Soln) 2.5 mg NEB Q4H PRN PRN Reason: wheezing Last Admin: 06/11/19 06:44 Dose: 2.5 mg Ceftriaxone Sodium (Rocephin) 1 gm IVPUSH ONETIME ONE Stop: 06/09/19 18:28 Last Admin: 06/09/19 18:39 Dose: 1 gm Ceftriaxone Sodium (Rocephin) 1 gm IVPUSH Q24H [facility] Last Admin: 06/10/19 17:45 Dose: 1 gm Enoxaparin Sodium (Lovenox) 30 mg SUBCUT Q12H [facility] Last Admin: 06/11/19 09:54 Dose: 30 mg Furosemide (Lasix) 20 mg IVPUSH NOW ONE Stop: 06/10/19 17:31 Last Admin: 06/10/19 17:41 Dose: 20 mg Sodium Chloride (Normal Saline) 1,000 mls @ 999 mls/hr IV BOLUS ONE Stop: 06/09/19 18:24 Last Admin: 06/09/19 17:31 Dose: 999 mls/hr Azithromycin 500 mg/ Sodium (Chloride) 250 mls @ 250 mls/hr IV ONETIME ONE Stop: 06/09/19 19:26 Last Admin: 06/09/19 19:01 Dose: 250 mls/hr Sodium Chloride (Normal Saline) 50 mls @ 100 mls/hr IV DAILY@1900 [facility] Last Admin: 06/09/19 19:04 Dose: Not Given Sodium Chloride (Normal Saline) 50 mls @ 100 mls/hr IV DAILY@1900 [facility] Last Admin: 06/09/19 19:29 Dose: 100 mls/hr Sodium Chloride (Normal Saline) 500 mls @ 999 mls/hr IV .BOLUS [facility] Stop: 06/09/19 20:30 Last Admin: 06/09/19 20:10 Dose: 999 mls/hr Sodium Chloride (Normal Saline) 500 mls @ 999 mls/hr IV .BOLUS [facility] Stop: 06/09/19 21:45 Last Admin: 06/09/19 21:20 Dose: 999 mls/hr Sodium Chloride (Normal Saline) 1,000 mls @ 125 mls/hr IV ASDIRECTED [facility] Stop: 06/10/19 03:45 Sodium Chloride (Normal Saline) 1,000 mls @ 125 mls/hr IV ASDIRECTED [facility] Last Infusion: 06/10/19 17:34 Dose: 75 mls/hr Sodium Chloride (Normal Saline) 750 mls @ 125 mls/hr IV ASDIRECTED [facility] Last Admin: 06/09/19 22:10 Dose: 125 mls/hr Sodium Chloride (Normal Saline) 1,000 mls @ 125 mls/hr IV ASDIRECTED [place] Sodium Chloride (Normal Saline) 1,000 mls @ 75 mls/hr IV ASDIRECTED [facility] Last Admin: 06/10/19 21:00 Dose: 75 mls/hr Vancomycin HCl 1 gm/ Sodium (Chloride) 250 mls @ 167 mls/hr IV BID [facility] Last Admin: 06/11/19 09:43 Dose: 167 mls/hr Sodium Chloride (Normal Saline) 1,000 mls @ 50 mls/hr IV ASDIRECTED [facility] Last Admin: 06/11/19 01:24 Dose: 50 mls/hr Vancomycin HCl (Pharmacy To Dose - Vancomycin) 1 dose .XX ASDIRECTED [facility] - Exam Physical Findings Comments:: GENERAL: Well-appearing elderly male lying in bed in no acute distress. HEENT: Normocephalic, atraumatic. Conjunctiva clear. Nasal cannula in place. Mucous membranes moist, posterior pharynx unremarkable. NECK: Supple, no masses. CV: Regular rate and rhythm, no murmurs, rubs, or gallops. 2+ radial pulses. PULMONARY: Normal effort, scattered rhonchi, no wheezes or rales. ABDOMEN: Positive bowel sounds, soft, nontender, nondistended. EXTREMITIES: No edema, cyanosis, or clubbing. MUSCULOSKELETAL: Moves all extremities well. NEUROLOGICAL: No obvious deficits. DERMATOLOGIC: No rashes or suspicious lesions in exposed areas. PSYCHIATRIC: Alert, interactive, appropriate affect.
[2019-06-12] MEDS ORDERED: Enoxaparin 40 MG/0.4 ML Syringe SUBCUT SCH (12:00)
== END 2019-06-12 11:50 | DRG 194 ==
LOC: KA.ED 17:17 → KA.MS 18:27
PROVIDERS: ADMIT Physician Assistant Surgical; ATTEND Family Medicine
DX: J18.9 Pneumonia, unspecified organism (principal); J10.00 Influenza due to other identified influenza virus with unspecified type of pneumonia; H91.90 Unspecified hearing loss, unspecified ear; H54.7 Unspecified visual loss; E78.00 Pure hypercholesterolemia, unspecified; J44.0 Chronic obstructive pulmonary disease with (acute) lower respiratory infection; K21.9 Gastro-esophageal reflux disease without esophagitis; J96.11 Chronic respiratory failure with hypoxia; M54.9 Dorsalgia, unspecified; G89.29 Other chronic pain; E86.0 Dehydration; I73.9 Peripheral vascular disease, unspecified; Z87.01 Personal history of pneumonia (recurrent); G40.909 Epilepsy, unspecified, not intractable, without status epilepticus; G47.00 Insomnia, unspecified; N40.0 Benign prostatic hyperplasia without lower urinary tract symptoms; E78.5 Hyperlipidemia, unspecified; E78.2 Mixed hyperlipidemia; I10 Essential (primary) hypertension; K59.09 Other constipation; Z66 Do not resuscitate; I95.9 Hypotension, unspecified; Z86.73 Personal history of transient ischemic attack (TIA), and cerebral infarction without residual deficits; Z85.51 Personal history of malignant neoplasm of bladder; Z98.49 Cataract extraction status, unspecified eye; Z79.899 Other long term (current) drug therapy; Z88.6 Allergy status to analgesic agent; Z88.8 Allergy status to other drugs, medicaments and biological substances
CPT/HCPCS: 36415; 51702; 71046; 80048; 80053; 81001; 83605; 83880; 85025; 87040; 87070; 87205; 87804; 94640; 96360; 99284; 99285-25; A9270-GY; J0456; J0696; J1650; J1940; J3370; J7030; J7040; J7050; J7613-GY; J7620-GY

== ENCOUNTER 2019-06-12 17:49 | Observation (INO) | payer MEDICARE, OTHER ==
[2019-06-12] MEDS ORDERED: Albuterol/Ipratropium 3.0-0.5 MG/3 ML Neb Soln NEB ONE (18:26)
[2019-06-12] MEDS ORDERED: methylPREDNISolone Sodium Succinate 125 MG/2 ML SDV IM ONE (18:44)
--- NOTE | 2019-06-12 18:51 | EDM.PDOC ---
ED HPI GENERAL MEDICAL PROBLEM - General Chief Complaint: General Stated Complaint: SHORT OF BREATH Time Seen by Provider: 06/12/19 18:40 Source of Information: Reports: Patient, EMS, EMS Notes Reviewed History Limitations: Reports: No Limitations - History of Present Illness INITIAL COMMENTS - FREE TEXT/NARRATIVE: Patient is an 88-year-old gentleman who presents to the emergency department via EMS from [facility] secondary to hypoxemia. Patient was discharged today from [facility]. Initially admitted on 06/09/2019 for Pneumonia influenza B. During limited course at nursing facility patient decompensated, and saturation on nasal cannula went to low 80s. No other symptoms. Nursing facility decided to transfer patient to ER. At this time. Patient denies chest pain, fever, headache, nausea, vomiting, diarrhea, or abdominal pain. Onset: Today Severity: Mild Improves with: Reports: None Worsens with: Reports: None Associated Symptoms: Reports: Cough, Shortness of Breath. Denies: Chest Pain, Fever/Chills, Nausea/Vomiting - Related Data Allergies Allergy/AdvReac Type Severity Reaction Status Date / Time aspirin Allergy Other Verified 06/12/19 18:07 atenolol Allergy Syncope Verified 06/12/19 18:07 Beta-Blockers Allergy Dizziness Verified 06/12/19 18:07 (Beta-Adrenergic Bloc Home Meds: Home Meds LORazepam [Ativan] 1 mg PO BEDTIME PRN 10/28/13 [History] Tamsulosin [Flomax] 0.8 mg PO BEDTIME 10/28/13 [History] amLODIPine [Norvasc] 5 mg PO DAILY 10/28/13 [History] lamoTRIgine [Lamictal] 100 mg PO BID 10/28/13 [History] Ascorbic Acid [C-1000] 1,000 mg PO DAILY 07/25/15 [History] Budesonide [Pulmicort] 1 unit INH BID 07/25/15 [History] Cholecalciferol (Vitamin D3) [Vitamin D3] 1,000 unit PO DAILY 07/25/15 [History] atorvaSTATin [Lipitor] 20 mg PO BEDTIME #30 tablet 07/29/15 [Rx] Finasteride [Proscar] 5 mg PO DAILY 09/14/16 [History] Acetaminophen [Tylenol] 650 mg PO Q4H PRN 05/24/19 [History] Magnesium Hydroxide [Milk of Magnesia] 30 ml PO DAILY PRN 05/24/19 [History] Nystatin [Nystatin Crm] 1 applic TOP BID 05/24/19 [History] Albuterol Sulfate [Proair Respiclick] 1 puff INH QID PRN 06/09/19 [History] guaiFENesin [Mucinex] 1 tab PO BID 06/09/19 [History] Albuterol/Ipratropium [DuoNeb 3.0-0.5 MG/3 ML] 3 ml NEB Q4HRRT PRN #30 neb 06/12 [Rx] Azithromycin [Zithromax] 250 mg PO DAILY #1 tablet 06/12/19 [Rx] Losartan [Cozaar] 50 mg PO DAILY #30 tab 06/12/19 [Rx] Oseltamivir [Tamiflu] 75 mg PO BID #7 cap 06/12/19 [Rx] polyethylene glycoL 3350 [MiraLAX] 17 gm PO DAILY packet 06/12/19 [Rx] Past Medical History HEENT History: Reports: Cataract, Hard of Hearing, Impaired Vision Cardiovascular History: Reports: High Cholesterol, Hypertension Respiratory History: Reports: Asthma, COPD, Pneumonia, Recurrent Gastrointestinal History: Reports: Chronic Constipation, GERD Genitourinary History: Reports: BPH Musculoskeletal History: Reports: Back Pain, Chronic Neurological History: Reports: CVA Endocrine/Metabolic History: Reports: None Oncologic (Cancer) History: Reports: Bladder - Infectious Disease History Infectious Disease History: Reports: Chicken Pox, Measles, Mumps, Rubella, Other (See Below) Other Infectious Disease History: Polio at age 5. - Past Surgical History HEENT Surgical History: Reports: Cataract Surgery, Tonsillectomy Cardiovascular Surgical History: Reports: Carotid Endarterectomy Male Surgical History: Reports: Cystectomy Endocrine Surgical History: Reports: None Social & Family History - Family History Family Medical History: Noncontributory Cardiac: Reports: Hypertension - Tobacco Use Smoking Status *Q: Former Smoker Used Tobacco, but Quit: Yes Month/Year Tobacco Last Used: quit 2005 - Caffeine Use Caffeine Use: Reports: Coffee Caffeine Use Comment: Drinks coffee rarely - Recreational Drug Use Recreational Drug Use: No ED ROS GENERAL - Review of Systems Review Of Systems: Comprehensive ROS is negative, except as noted in HPI. Constitutional: Reports: No Symptoms HEENT: Reports: No Symptoms Respiratory: Reports: Shortness of Breath, Wheezing, Cough Cardiovascular: Reports: No Symptoms Endocrine: Reports: No Symptoms GI/Abdominal: Reports: No Symptoms : Reports: No Symptoms Musculoskeletal: Reports: No Symptoms Skin: Reports: No Symptoms Neurological: Reports: No Symptoms Psychiatric: Reports: No Symptoms Hematologic/Lymphatic: Reports: No Symptoms Immunologic: Reports: No Symptoms ED EXAM, GENERAL - Physical Exam Exam: See Below Exam Limited By: No Limitations General Appearance: Alert, WD/WN, No Apparent Distress Eye Exam: Bilateral Eye: Normal Inspection Nose: Normal Inspection, Normal Mucosa, No Blood Throat/Mouth: Normal Inspection, Normal Oropharynx, No Airway Compromise Head: Atraumatic, Normocephalic Neck: Normal Inspection Respiratory/Chest: No Respiratory Distress, Chest Non-Tender, Wheezing ( Expiratory) Cardiovascular: Regular Rate, Rhythm GI/Abdominal: Normal Bowel Sounds, Soft, Non-Tender Back Exam: Normal Inspection. No: CVA Tenderness (L), CVA Tenderness (R) Extremities: Normal Inspection, No Pedal Edema Neurological: Alert, Oriented, Normal Cognition Psychiatric: Normal Affect, Normal Mood Skin Exam: Warm, Dry, Intact, Normal Color, No Rash Lymphatic: No Adenopathy Course - Vital Signs Last Recorded V/S: Last Vital Signs Temp 98.6 F 06/12/19 17:55 Pulse 67 06/12/19 17:55 Resp 22 H 06/12/19 18:19 BP 133/56 L 06/12/19 18:19 Pulse Ox 85 L 06/12/19 18:19 - Orders/Labs/Meds Orders: Active Orders 24 hr Category Date Time Status RT Aerosol Therapy [RC] ASDIRECTED Care 06/12/19 18:26 Active methylPREDNISolone Sod Succ [Solu-MEDROL] Med 06/12/19 18:44 Once 80 mg IM ONETIME ONE Meds: Medications Discontinued Medications Generic Name Dose Route Start Last Admin Trade Name Freq PRN Reason Stop Dose Admin Albuterol/Ipratropium 3 ml 06/12/19 18:26 06/12/19 18:32 Duoneb 3.0-0.5 Mg/3 Ml NEB 06/12/19 18:27 3 ml ONETIME ONE Administration - Re-Assessments/Exams Free Text/Narrative Re-Assessment/Exam: 06/12/19 18:52 Patient afebrile, vital signs stable, oxygen saturation 90% on 5 L nasal cannula. Patient given DuoNeb and 80 mg Solu-Medrol IM. Discussed case with Dr. Perkins, and he will admit patient for observation and follow. Departure - Departure Time of Disposition: 18:52 Disposition: Refer to Observation Condition: Fair Clinical Impression: Hypoxemia, Pneumonia COPD (chronic obstructive pulmonary disease) Qualifiers: COPD type: COPD with acute lower respiratory infection Qualified Code(s): J44.0 - Chronic obstructive pulmonary disease with (acute) lower respiratory infection - Discharge Information Referrals: Latoya Muñiz, [employer] [Primary Care Provider] - Sepsis Event Note - Evaluation Sepsis Screening Result: No Definite Risk - Focused Exam Vital Signs: Vital Signs Temp Pulse Resp BP Pulse Ox 06/12/19 18:19 22 H 133/56 L 85 L 06/12/19 17:55 98.6 F 67 20 109/53 L 91 L Date Exam was Performed: 06/12/19 Time Exam was Performed: 18:44 - My Orders Last 24 Hours: My Active Orders 06/12/19 18:26 RT Aerosol Therapy [RC] ASDIRECTED 06/12/19 18:44 methylPREDNISolone Sod Succ [Solu-MEDROL] 80 mg IM ONETIME ONE - Assessment/Plan Last 24 Hours: My Active Orders 06/12/19 18:26 RT Aerosol Therapy [RC] ASDIRECTED 06/12/19 18:44 methylPREDNISolone Sod Succ [Solu-MEDROL] 80 mg IM ONETIME ONE Assessment:: COPD with hypoxemia Plan: Admit observation for Dr. Perkins
[2019-06-12] MEDS ORDERED: Albuterol/Ipratropium 3.0-0.5 MG/3 ML Neb Soln NEB PRN (18:53)
[2019-06-12] MEDS ORDERED: Acetaminophen 325 MG Tab PO PRN (18:53)
[2019-06-12] MEDS ORDERED: Budesonide 0.5 MG/2 ML Neb Susp NEB ONE (20:00)
[2019-06-12] MEDS ORDERED: Tamsulosin 0.4 MG Cap.ER PO ONE (20:01)
[2019-06-12] MEDS ORDERED: LORazepam 0.5 MG Tab PO PRN (20:03)
[2019-06-12] MEDS ORDERED: Magnesium Hydroxide 400 MG/5 ML Susp 30 ML Cup PO PRN (20:26)
[2019-06-12] MEDS: Oseltamivir 75 MG Cap PO SCH (21:36)
[2019-06-12] MEDS: Budesonide 0.5 MG/2 ML Neb Susp INH SCH (21:49)
[2019-06-12] MEDS: Tamsulosin 0.4 MG Cap.ER PO SCH (21:51)
[2019-06-12] MEDS: guaiFENesin 600 MG Tab.ER PO SCH (21:51)
[2019-06-12] MEDS: lamoTRIgine 100 MG Tab PO SCH (21:52)
[2019-06-13] MEDS: Albuterol/Ipratropium 3.0-0.5 MG/3 ML Neb Soln NEB SCH ×2 (06:43→20:05)
[2019-06-13] MEDS: Budesonide 0.5 MG/2 ML Neb Susp INH SCH ×2 (07:24→21:31)
[2019-06-13] MEDS: Oseltamivir 75 MG Cap PO SCH ×2 (08:34→20:06)
[2019-06-13] MEDS: guaiFENesin 600 MG Tab.ER PO SCH ×2 (08:34→20:06)
[2019-06-13] MEDS: lamoTRIgine 100 MG Tab PO SCH ×2 (08:34→20:06)
[2019-06-13] MEDS: Polyethylene Glycol 3350 Powder 17 GM Packet PO SCH (08:35)
[2019-06-13] MEDS ORDERED: Azithromycin 250 MG Tab PO SCH (09:00)
--- NOTE | 2019-06-13 11:41 | PCM.HP.2 ---
H&P History of Present Illness - General Date of Service: 06/13/19 Admit Problem/Dx: Admission Diagnosis/Problem Admission Diagnosis/Problem COPD with acute lower respiratory infection Source of Information: Patient, Old Records, Provider, RN - Related Data Allergies/Adverse Reactions: Allergies Allergy/AdvReac Type Severity Reaction Status Date / Time aspirin Allergy Other Verified 06/12/19 21:56 atenolol Allergy Syncope Verified 06/12/19 21:56 Beta-Blockers Allergy Dizziness Verified 06/12/19 21:56 (Beta-Adrenergic Bloc Home Medications: Home Meds LORazepam [Ativan] 1 mg PO BEDTIME PRN 10/28/13 [History] Tamsulosin [Flomax] 0.8 mg PO BEDTIME 10/28/13 [History] amLODIPine [Norvasc] 5 mg PO DAILY 10/28/13 [History] lamoTRIgine [Lamictal] 100 mg PO BID 10/28/13 [History] Ascorbic Acid [C-1000] 1,000 mg PO DAILY 07/25/15 [History] Budesonide [Pulmicort] 1 unit INH BID 07/25/15 [History] Cholecalciferol (Vitamin D3) [Vitamin D3] 1,000 unit PO DAILY 07/25/15 [History] atorvaSTATin [Lipitor] 20 mg PO BEDTIME #30 tablet 07/29/15 [Rx] Finasteride [Proscar] 5 mg PO DAILY 09/14/16 [History] Acetaminophen [Tylenol] 650 mg PO Q4H PRN 05/24/19 [History] Magnesium Hydroxide [Milk of Magnesia] 30 ml PO DAILY PRN 05/24/19 [History] Nystatin [Nystatin Crm] 1 applic TOP BID 05/24/19 [History] Albuterol Sulfate [Proair Respiclick] 1 puff INH QID PRN 06/09/19 [History] guaiFENesin [Mucinex] 1 tab PO BID 06/09/19 [History] Albuterol/Ipratropium [DuoNeb 3.0-0.5 MG/3 ML] 3 ml NEB Q4HRRT PRN #30 neb 06/12 [Rx] Azithromycin [Zithromax] 250 mg PO DAILY #1 tablet 06/12/19 [Rx] Losartan [Cozaar] 50 mg PO DAILY #30 tab 06/12/19 [Rx] Oseltamivir [Tamiflu] 75 mg PO BID #7 cap 06/12/19 [Rx] polyethylene glycoL 3350 [MiraLAX] 17 gm PO DAILY packet 06/12/19 [Rx] Past Medical History HEENT History: Reports: Cataract, Hard of Hearing, Impaired Vision Cardiovascular History: Reports: High Cholesterol, Hypertension Respiratory History: Reports: Asthma, COPD, Pneumonia, Recurrent Gastrointestinal History: Reports: Chronic Constipation, GERD Genitourinary History: Reports: BPH Musculoskeletal History: Reports: Back Pain, Chronic Neurological History: Reports: CVA Endocrine/Metabolic History: Reports: None Oncologic (Cancer) History: Reports: Bladder - Infectious Disease History Infectious Disease History: Reports: Chicken Pox, Measles, Mumps, Rubella, Other (See Below) Other Infectious Disease History: Polio at age 5. - Past Surgical History HEENT Surgical History: Reports: Cataract Surgery, Tonsillectomy Cardiovascular Surgical History: Reports: Carotid Endarterectomy Male Surgical History: Reports: Cystectomy Endocrine Surgical History: Reports: None Social & Family History - Family History Family Medical History: Noncontributory Cardiac: Reports: Hypertension - Tobacco Use Smoking Status *Q: Former Smoker Used Tobacco, but Quit: Yes Month/Year Tobacco Last Used: 2005 - Caffeine Use Caffeine Use: Reports: Coffee Caffeine Use Comment: Drinks coffee rarely - Recreational Drug Use Recreational Drug Use: No H&P Review of Systems - Review of Systems: Review Of Systems: See Below General: Reports: Malaise. Denies: Fever, Chills, Weakness, Fatigue, Night Sweats, Diaphoresis, Decreased Appetite HEENT: Reports: No Symptoms Pulmonary: Reports: Shortness of Breath ([place]sh[place] shortness of breath). Denies: Cough, Sputum Cardiovascular: Reports: Dyspnea on Exertion. Denies: Chest Pain, Palpitations , Orthopnea, Edema, Blood Pressure Problem Gastrointestinal: Reports: No Symptoms, Constipation Skin: Reports: No Symptoms Psychiatric: Reports: No Symptoms Neurological: Reports: No Symptoms Hematologic/Lymphatic: Reports: Easy Bruising Exam - Exam Exam: See Below - Vital Signs Vital Signs: Last Vital Signs Temp 97.1 F 06/13/19 06:49 Pulse 76 06/13/19 07:24 Resp 28 H 06/13/19 06:49 BP 121/55 L 06/13/19 06:49 Pulse Ox 94 L 06/13/19 09:00 Weight: 142 lb 1 oz - Exam Quality Assessment: Supplemental Oxygen General: Alert, Oriented, Cooperative. No: Mild Distress HEENT: EACs Clear, Nares Patent Neck: Supple Lungs: Decreased Breath Sounds. No: Wheezing Cardiovascular: Regular Rate, Regular Rhythm GI/Abdominal Exam: Distended, Abnormal Bowel Sounds (Low quality bowel tones), Other. No: Normal Bowel Sounds, Rigid, Rebound, Tender (Male) Exam: Deferred Back Exam: No: CVA Tenderness (L), CVA Tenderness (R) Extremities: No: Pedal Edema Peripheral Pulses: 2+: Radial (L), Radial (R) Skin: Warm, Dry, Intact Neurological: Cranial Nerves Intact, Reflexes Equal Bilateral Neuro Extensive - Mental Status: Alert, Oriented x3, Normal Mood/Affect, Normal Cognition Neuro Extensive - Motor, Sensory, Reflexes: CN II-XII Intact Psychiatric: Alert, Normal Affect, Normal Mood Sepsis Event Note - Evaluation Sepsis Screening Result: No Definite Risk - Focused Exam Vital Signs: Vital Signs Temp Pulse Resp BP Pulse Ox Pulse Ox 06/13/19 09:00 94 L 06/13/19 07:24 76 92 L 06/13/19 07:22 92 L 06/13/19 06:49 97.1 F 74 28 H 121/55 L 95 06/13/19 06:43 76 95 06/13/19 06:42 95 06/13/19 03:00 97.3 F 90 24 H 155/68 H 90 L Date Exam was Performed: 06/13/19 Time Exam was Performed: 11:41 Problem List Initiated/Reviewed/Updated: Yes Orders Last 24hrs: Active Orders 24 hr Category Date Time Status Patient Status [ADT] Routine ADT 06/12/19 18:54 Active Oxygen Therapy [RC] DAILY Care 06/12/19 18:54 Active RT Aerosol Therapy [RC] .PRN Care 06/12/19 18:26 Active RT Aerosol Therapy [RC] ASDIRECTED Care 06/12/19 18:56 Inactive RT Aerosol Therapy [RC] ASDIRECTED Care 06/12/19 20:03 Active Vital Signs [RC] 0300,0700,1100,1500,1900,2300 Care 06/12/19 18:54 Active Regular Diet [DIET] Diet 06/13/19 Lunch Active Acetaminophen [Tylenol] Med 06/12/19 20:26 Active 650 mg PO Q4H PRN Albuterol/Ipratropium [DuoNeb 3.0-0.5 MG/3 ML] Med 06/13/19 08:00 Active 3 ml NEB BIDRT Albuterol/Ipratropium [DuoNeb 3.0-0.5 MG/3 ML] Med 06/12/19 23:03 Active 3 ml NEB DAILY PRN Budesonide [Pulmicort] Med 06/12/19 21:00 Active 0.5 mg INH BIDRT Magnesium Hydroxide [Milk of Magnesia] Med 06/12/19 20:26 Active 30 ml PO DAILY PRN Oseltamivir [Tamiflu] Med 06/12/19 21:00 Active 75 mg PO BID Tamsulosin [Flomax] Med 06/12/19 21:00 Active 0.8 mg PO BEDTIME atorvaSTATin [Lipitor] Med 06/13/19 21:00 Active 20 mg PO BEDTIME guaiFENesin [Mucinex] Med 06/12/19 21:00 Active 600 mg PO BID lamoTRIgine Med 06/12/19 21:00 Active 100 mg PO BID polyethylene glycoL 3350 [MiraLAX] Med 06/13/19 09:00 Active 17 gm PO DAILY Resuscitation Status Routine Resus Stat 06/12/19 18:53 Ordered Medication Orders Acetaminophen (Tylenol) 650 mg PO Q4H PRN PRN Reason: Pain or Fever Albuterol/Ipratropium (Duoneb 3.0-0.5 Mg/3 Ml) 3 ml NEB BIDRT [facility] Last Admin: 06/13/19 06:43 Dose: 3 ml Admin: 06/13/19 06:43 Dose: 3 ml Albuterol/Ipratropium (Duoneb 3.0-0.5 Mg/3 Ml) 3 ml NEB DAILY PRN PRN Reason: Wheezing Atorvastatin Calcium (Lipitor) 20 mg PO BEDTIME [facility] Budesonide (Pulmicort) 0.5 mg INH BIDRT [facility] Last Admin: 06/13/19 07:24 Dose: 0.5 mg Admin: 06/12/19 21:49 Dose: 0.5 mg Guaifenesin (Mucinex) 600 mg PO BID [facility] Last Admin: 06/13/19 08:34 Dose: 600 mg Admin: 06/12/19 21:51 Dose: 600 mg Lamotrigine (Lamotrigine) 100 mg PO BID [facility] Last Admin: 06/13/19 08:34 Dose: 100 mg Admin: 06/12/19 21:52 Dose: 100 mg Magnesium Hydroxide (Milk Of Magnesia) 30 ml PO DAILY PRN PRN Reason: Constipation Oseltamivir Phosphate (Tamiflu) 75 mg PO BID [facility] Stop: 06/15/19 11:00 Last Admin: 06/13/19 08:34 Dose: 75 mg Admin: 06/12/19 21:36 Dose: Polyethylene Glycol (Miralax) 17 gm PO DAILY [facility] Last Admin: 06/13/19 08:35 Dose: 17 gm Tamsulosin HCl (Flomax) 0.8 mg PO BEDTIME [facility] Last Admin: 06/12/19 21:51 Dose: 0.8 mg Assessment/Plan Comment:: History of present illness 88-year-old gentleman was was sent to the ED via EMS from [facility] secondary to hypoxemia. Patient was discharged where he [facility]th from [facility] due to pneumonia/influenza B over when he returned back to long-term care they did call the on-call provider due to weakness along with low oxygen saturations in the 80s--necessitating reamission. ED evaluation O2 sats 95% Solu-Medrol 80 mg 1 time Acute care course He was continued on ceftriaxone and azithromycin, with addition of vancomycin on the night of 06/10/19 when oseltamivir was also started. Overall respiratory status improved with albuterol nebulizer treatments. He was weaned to his baseline oxygen of 3lpm. A Balderrama catheter was placed due to low output on the evening of 06/10/19, but then with ongoing low output, so IVF were increased with good response. On the evening of 06/10/19, he was also given a one time dose of furosemide 20mg IV with subsequent increase in output overnight and ongoing improvement in respiratory status. On day of discharge, he had ongoing improvement back to near baseline. Oxygen at baseline. Ongoing scattered rhonchi. No recurrent fever. He was continued on home medications except for antihypertensives initially in his course due to borderline low BPs. medications changes/adjustments at discharge: - Oseltamavir to finish 5 day course (last day 06/15/19) - Azithromycin to finish 5 day course (last day 06/13/19) - Change albuterol to DuoNebs q4h prn shortness of breath/wheezing - Decrease losartan to 50mg daily (down from 100mg daily) - Change albuterol to DuoNebs q4h prn shortness of breath/wheezing Primary Hospital problems --Influenza B, cont Oseltamavir to finish 5 day course (last day 06/15/19) --Pneumonia: most likely secondary to influenza, continue p.o. azithromycin as ? Bacterial component/risks --Chronic hypoxic respiratory failure: now at baseline oxygen requirement --constipation, scheduled milk of magnesia - Chronic, stable conditions: COPD: Continue Pulmicort. Mild diastolic dysfunction: PVD and hx TIA: ASA allergy, HTN: losartan 100mg and amlodipine 5mg. Constipation: Miralax daily and milk of magnesia BPH: Continue tamsulosin and finasteride. HLD: Continue atorvastatin. Seizure disorder: No recent recurrence. Continue lamotrigine. Insomnia: Holding lorazepam. Hx bladder cancer Hospitalization details: Melatonin for delirium ppx. Code status: DNR/DNI. Emergency contact: , info on file Disposition: Place in observation, duo nebs, continue p.o. azithromycin, likely anticipate short stay - Mortality Measure Prognosis:: Good
[2019-06-13] MEDS: Docusate Sodium 100 MG Cap PO SCH (12:40)
[2019-06-13] MEDS: Magnesium Hydroxide 400 MG/5 ML Susp 30 ML Cup PO SCH (12:40)
[2019-06-13] MEDS: Albuterol/Ipratropium 3.0-0.5 MG/3 ML Neb Soln NEB PRN (17:26)
[2019-06-13] MEDS: Acetaminophen 325 MG Tab PO PRN (17:30)
[2019-06-13] MEDS: Tamsulosin 0.4 MG Cap.ER PO SCH (20:05)
[2019-06-13] MEDS ORDERED: atorvaSTATin 10 MG Tab PO SCH (21:00)
[2019-06-14] MEDS: Acetaminophen 325 MG Tab PO PRN (05:24)
[2019-06-14] MEDS: Albuterol/Ipratropium 3.0-0.5 MG/3 ML Neb Soln NEB SCH (06:33)
[2019-06-14 06:54] VITALS: BP 154/81
[2019-06-14] MEDS: Budesonide 0.5 MG/2 ML Neb Susp INH SCH (07:16)
[2019-06-14] MEDS: Polyethylene Glycol 3350 Powder 17 GM Packet PO SCH (08:42)
[2019-06-14] MEDS: lamoTRIgine 100 MG Tab PO SCH (08:43)
[2019-06-14] MEDS: Docusate Sodium 100 MG Cap PO SCH (08:43)
[2019-06-14] MEDS: Magnesium Hydroxide 400 MG/5 ML Susp 30 ML Cup PO SCH (08:43)
[2019-06-14] MEDS: Oseltamivir 75 MG Cap PO SCH (08:44)
[2019-06-14] MEDS: guaiFENesin 600 MG Tab.ER PO SCH (09:24)
--- NOTE | 2019-06-14 11:28 | PCM.DCSUM1 ---
Discharge Summary - Hospital Course Diagnosis: Stroke: No - Discharge Data Discharge Date: 06/14/19 Discharge Disposition: DC/Tfer to SNF 03 Condition: Fair - Referral to Home Health Primary Care Physician: Latoya Muñiz NP - Patient Instructions Diet: Usual Diet as Tolerated Activity: As Tolerated, Cough & Deep Breathe Driving: Do Not Drive Showering/Bathing: May Shower Other/Special Instructions: And sure he gets his albuterol neb every 6 hours - Discharge Plan *PRESCRIPTION DRUG MONITORING PROGRAM REVIEWED*: Not Applicable *COPY OF PRESCRIPTION DRUG MONITORING REPORT IN PATIENT CHRISTIE: Not Applicable Prescriptions/Med Rec: Albuterol [Proventil Neb Soln] 1.25 mg NEB Q6H #60 neb Home Medications: Home Meds LORazepam [Ativan] 1 mg PO BEDTIME PRN 10/28/13 [History] Tamsulosin [Flomax] 0.8 mg PO BEDTIME 10/28/13 [History] amLODIPine [Norvasc] 5 mg PO DAILY 10/28/13 [History] lamoTRIgine [Lamictal] 100 mg PO BID 10/28/13 [History] Ascorbic Acid [C-1000] 1,000 mg PO DAILY 07/25/15 [History] Budesonide [Pulmicort] 1 unit INH BID 07/25/15 [History] Cholecalciferol (Vitamin D3) [Vitamin D3] 1,000 unit PO DAILY 07/25/15 [History] atorvaSTATin [Lipitor] 20 mg PO BEDTIME #30 tablet 07/29/15 [Rx] Finasteride [Proscar] 5 mg PO DAILY 09/14/16 [History] Acetaminophen [Tylenol] 650 mg PO Q4H PRN 05/24/19 [History] Magnesium Hydroxide [Milk of Magnesia] 30 ml PO DAILY PRN 05/24/19 [History] Nystatin [Nystatin Crm] 1 applic TOP BID 05/24/19 [History] Albuterol Sulfate [Proair Respiclick] 1 puff INH QID PRN 06/09/19 [History] guaiFENesin [Mucinex] 1 tab PO BID 06/09/19 [History] Losartan [Cozaar] 50 mg PO DAILY #30 tab 06/12/19 [Rx] Oseltamivir [Tamiflu] 75 mg PO BID #7 cap 06/12/19 [Rx] polyethylene glycoL 3350 [MiraLAX] 17 gm PO DAILY packet 06/12/19 [Rx] Albuterol [Proventil Neb Soln] 1.25 mg NEB Q6H #60 neb 06/14/19 [Rx] - Discharge Summary/Plan Comment DC Time >30 min.: Yes Discharge Summary/Plan Comment: Final diagnosis COPD exacerbation, mild, Influenza B Pneumonia, resolving constipation, improving Chronic, stable conditions: COPD: Continue Pulmicort. Mild diastolic dysfunction: PVD and hx TIA: ASA allergy, HTN: losartan 100mg and amlodipine 5mg. Constipation: Miralax daily and milk of magnesia BPH: Continue tamsulosin and finasteride. HLD: Continue atorvastatin. Seizure disorder: No recent recurrence. Continue lamotrigine. IHx bladder cancer History summary 88-year-old gentleman was was sent to the ED via [place] [facility] [place] to hypoxemia. Patient was discharged [facility] on June 12 secondary to pneumonia/influenza B over when he returned back to long-term care they did call the on-call provider due to weakness along with low oxygen saturations in the 80s--necessitating re-amission. ED he was given Solu-Medrol 80 mg 1 time Brief hospital course Patient was given his final azithromycin, he was given albuterol nebulizers. His oxygen saturations quickly responded. We continued on his oxygen. Oseltamavir was continued and will end on 15 June. Medications changes/adjustments at discharge: --Oseltamavir to finish 5 day course (last day 06/15/19) --ONLY albuterol neb 1.25 scheduled q6 hours. Ipratropium causes dizziness --DC Brovana (prohibitive cost) --Decrease losartan to 50mg daily (down from 100mg daily) - - General Info Functional Status: Reports: Pain Controlled, Tolerating Diet, Ambulating, Incentive Spirometry. Denies: New Symptoms - Review of Systems General: Denies: Fever, Weakness HEENT: Reports: No Symptoms Pulmonary: Reports: Cough, Sputum. Denies: Shortness of Breath, Wheezing Cardiovascular: Reports: Dyspnea on Exertion. Denies: Chest Pain, Palpitations Gastrointestinal: Denies: Constipation Genitourinary: Reports: No Symptoms Skin: Reports: Dryness Neurological: Reports: No Symptoms. Denies: Confusion Psychiatric: Reports: No Symptoms - Patient Data Vitals - Most Recent: Last Vital Signs Temp 97.0 F 06/14/19 06:52 Pulse 64 06/14/19 07:16 Resp 22 H 06/14/19 06:52 BP 154/81 H 06/14/19 06:52 Pulse Ox 94 L 06/14/19 07:16 Weight - Most Recent: 142 lb 1 oz I&O - Last 24 hours: Intake & Output 06/13/19 06/14/19 06/14/19 22:59 06:59 14:59 Intake Total 340 300 Balance 340 300 Med Orders - Current: Current Medications Acetaminophen (Tylenol) 650 mg PO Q4H PRN PRN Reason: Pain or Fever Last Admin: 06/14/19 05:24 Dose: 650 mg Albuterol/Ipratropium (Duoneb 3.0-0.5 Mg/3 Ml) 3 ml NEB BIDRT [facility] Last Admin: 06/14/19 06:33 Dose: 3 ml Albuterol/Ipratropium (Duoneb 3.0-0.5 Mg/3 Ml) 3 ml NEB DAILY PRN PRN Reason: Wheezing Last Admin: 06/13/19 17:26 Dose: 3 ml Atorvastatin Calcium (Lipitor) 20 mg PO BEDTIME [facility] Last Admin: 06/13/19 20:06 Dose: 20 mg Budesonide (Pulmicort) 0.5 mg INH BIDRT [facility] Last Admin: 06/14/19 07:16 Dose: 0.5 mg Docusate Sodium (Colace) 200 mg PO DAILY [facility] Last Admin: 06/14/19 08:43 Dose: 200 mg Guaifenesin (Mucinex) 600 mg PO BID [facility] Last Admin: 06/14/19 09:24 Dose: 600 mg Lamotrigine (Lamotrigine) 100 mg PO BID [facility] Last Admin: 06/14/19 08:43 Dose: 100 mg Magnesium Hydroxide (Milk Of Magnesia) 30 ml PO DAILY [facility] Last Admin: 06/14/19 08:43 Dose: 30 ml Oseltamivir Phosphate (Tamiflu) 75 mg PO BID [facility] Stop: 06/15/19 11:00 Last Admin: 06/14/19 08:44 Dose: 75 mg Polyethylene Glycol (Miralax) 17 gm PO DAILY [facility] Last Admin: 06/14/19 08:42 Dose: 17 gm Tamsulosin HCl (Flomax) 0.8 mg PO BEDTIME [facility] Last Admin: 06/13/19 20:05 Dose: 0.8 mg Discontinued Medications Acetaminophen (Tylenol) 650 mg PO Q4H PRN PRN Reason: Pain (Mild 1-3)/fever Albuterol/Ipratropium (Duoneb 3.0-0.5 Mg/3 Ml) 3 ml NEB ONETIME ONE Stop: 06/12/19 18:27 Last Admin: 06/12/19 18:32 Dose: 3 ml Albuterol/Ipratropium (Duoneb 3.0-0.5 Mg/3 Ml) 3 ml NEB Q4H PRN PRN Reason: Shortness Of Breath/wheezing Azithromycin (Zithromax) 250 mg PO DAILY [facility] Stop: 06/13/19 10:00 Last Admin: 06/13/19 08:35 Dose: 250 mg Budesonide (Pulmicort) 0.5 mg NEB ONETIME ONE Stop: 06/12/19 20:01 Last Admin: 06/12/19 21:37 Dose: Not Given Lorazepam (Ativan) 1 mg PO BEDTIME PRN PRN Reason: Anxiety Magnesium Hydroxide (Milk Of Magnesia) 30 ml PO DAILY PRN PRN Reason: Constipation Methylprednisolone Sodium Succinate (Solu-Medrol) 80 mg IM ONETIME ONE Stop: 06/12/19 18:45 Last Admin: 06/12/19 18:52 Dose: 80 mg Tamsulosin HCl (Flomax) 0.8 mg PO ONETIME ONE Stop: 06/12/19 20:02 Last Admin: 06/12/19 21:37 Dose: Not Given - Exam Quality Assessment: Reports: Supplemental Oxygen General: Reports: Alert Lungs: Reports: Rhonchi (Clears somewhat on cough) Cardiovascular: Reports: Regular Rate, Regular Rhythm GI/Abdominal Exam: Normal Bowel Sounds, Soft, No Distention. No: Distended Skin: Reports: Dry Psy/Mental Status: Reports: Alert, Normal Affect, Normal Mood
[2019-06-14] MEDS: Albuterol/Ipratropium 3.0-0.5 MG/3 ML Neb Soln NEB PRN (13:06)
[2019-06-14 13:43] VITALS: PULSE 76
== END 2019-06-14 13:30 ==
LOC: KA.ED 17:49 → UNDOADMOB 18:53 → KA.MS 18:53 → KA.ED 19:00
PROVIDERS: ADMIT Physician Assistant Surgical; ATTEND Family Medicine
DX: J44.0 Chronic obstructive pulmonary disease with (acute) lower respiratory infection (principal); J44.1 Chronic obstructive pulmonary disease with (acute) exacerbation; J96.11 Chronic respiratory failure with hypoxia; J18.9 Pneumonia, unspecified organism; J10.00 Influenza due to other identified influenza virus with unspecified type of pneumonia; K59.09 Other constipation; I10 Essential (primary) hypertension; E78.00 Pure hypercholesterolemia, unspecified; E78.5 Hyperlipidemia, unspecified; N40.0 Benign prostatic hyperplasia without lower urinary tract symptoms; K21.9 Gastro-esophageal reflux disease without esophagitis; G40.909 Epilepsy, unspecified, not intractable, without status epilepticus; G47.00 Insomnia, unspecified; Z87.891 Personal history of nicotine dependence; Z88.6 Allergy status to analgesic agent; Z88.8 Allergy status to other drugs, medicaments and biological substances; Z79.899 Other long term (current) drug therapy; Z86.73 Personal history of transient ischemic attack (TIA), and cerebral infarction without residual deficits
CPT/HCPCS: 94640; 96372; 99285-25; A9270-GY; G0378; J2930; J7620-GY